=== PATIENT | male | born 1975 | race Caucasian/White ===

== ENCOUNTER 2023-06-02 20:43 | Emergency (ER) | payer OTHER, SELFPAY ==
[2023-06-02 20:49] VITALS: BP 129/82; PULSE 68; RESP 12; TEMP 36.5; O2SAT 97; BMI 33.9
--- NOTE | 2023-06-02 21:00 | ED_ITS ---
HPI - General Adult General Chief complaint: Skin/Abscess/Foreign Body Stated complaint: LUMP Time Seen by Provider: 06/02/23 20:45 Source: patient Mode of arrival: walk-in History of Present Illness HPI narrative: patient is a 47-year-old male who presents to the emergency department for the evaluation of a perirectal abscess that has been present for several days. 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 He has had a perirectal abscess that needed to be drained in the past. He has had no drainage from this area. No fevers or vomiting, no difficulty with bowel movements. Related Data Previous Rx's Medication Instructions Recorded ciprofloxacin HCl 500 mg tablet 500 mg PO BID #20 tabs 06/02/23 (Cipro) metronidazole 500 mg tablet 500 mg PO Q12H 10 days #20 tabs 06/02/23 ondansetron 4 mg disintegrating 4 mg PO Q6H PRN nausea and 06/02/23 tablet vomiting #12 tabs oxycodone-acetaminophen 5 mg-325 1 tab PO Q6H PRN pain #10 tabs 06/02/23 mg tablet (Percocet) Allergies Allergy/AdvReac Type Severity Reaction Status Date / Time No Known Drug Allergies Allergy Verified 06/02/23 20:48 Review of Systems ROS Constitutional Denies: fever or chills Ears, nose, mouth, and throat Denies: throat pain Cardiovascular Denies: chest pain Respiratory Denies: shortness of breath Gastrointestinal Denies: abdominal pain, nausea or vomiting Integumentary/Breast Denies: rash Endocrine Denies: excessive urination PFSH PFSH Social History Smoking status: Current every day smoker Exam Narrative Exam Narrative: Gen.: Awake, alert, in no distress Head: Normocephalic, atraumatic ENT: Moist mucous membranes Respiratory: No respiratory distress Gastrointestinal: Abdomen is soft, nondistended and nontender to palpation rectal: 1 x 2.5 cm minimally fluctuant abscess noted to the right medial bu ttock. Abscess is approximately 2 cm away from the opening of the rectum. There is no active drainage, no bleeding or drainage from the rectum.rectal exam performed with Niya Piña RN at the bedside throughout the duration of the exam Extremities: Moves extremities equally Psych: Normal mood and affect Neuro: No focal neuro deficit Skin: Warm, dry, intact Constitutional Vital Signs, click to edit/add: Last Vital Signs Temp 97.7 F 06/02/23 20:49 Pulse 68 06/02/23 20:49 Resp 12 06/02/23 20:49 BP 129/82 06/02/23 20:49 Pulse Ox 97 06/02/23 20:49 O2 Del Method Room Air 06/02/23 20:49 Course Vital Signs Vital signs: Vital Signs Temperature 97.7 F 06/02/23 20:49 Pulse Rate 68 06/02/23 20:49 Respiratory Rate 12 06/02/23 20:49 Blood Pressure 129/82 06/02/23 20:49 Pulse Oximetry 97 06/02/23 20:49 Oxygen Delivery Method Room Air 06/02/23 20:49 Temperature 97.7 F 06/02/23 20:49 Pulse Rate 68 06/02/23 20:49 Respiratory Rate 12 06/02/23 20:49 Blood Pressure 129/82 06/02/23 20:49 Pulse Oximetry 97 06/02/23 20:49 Oxygen Delivery Method Room Air 06/02/23 20:49 Medical Decision Making MDM Narrative Medical decision making narrative: Incision and drainage: A single layer of iodine was used to prep the area. Drapes were placed to ensure isolation of the abscess and surrounding skin tissue. A regional field block was performed with 1% lidocaine. Incision was made with an 11 blade, moderate amount purulent material was expressed. Cultures were obtained and sent to the lab. Telfa applied for bandage. Patient tolerated the procedure well, no significant blood loss Incision and drainage was performed, moderate purulent material was expressed and wound culture was obtained. Patient treated with Vivian Arora for perirectal abscess with a short course of analgesics and nausea medication. It was recommended is this is a recurrent perirectal abscess that he follow-up with a gastrointestinal specialist or general surgeon and referrals were given. He is encouraged to keep the area clean, dry and covered. Warm compresses to encourage drainage. Return to the Emergency Room if symptoms change or worsen Medical Records Medical records reviewed: Yes I reviewed the patient's medical records Discharge Plan Discharge Chief Complaint: Skin/Abscess/Foreign Body Clinical Impression: Perirectal abscess Patient Disposition: Home, Self-Care Time of Disposition Decision: 21:31 Condition: Good Prescriptions / Home Meds: New metronidazole 500 mg tablet 500 mg PO Q12H 10 Days Qty: 20 0RF ciprofloxacin HCl [Cipro] 500 mg tablet 500 mg PO BID Qty: 20 0RF ondansetron 4 mg tablet,disintegrating 4 mg PO Q6H PRN (Reason: nausea and vomiting) Qty: 12 0RF oxycodone-acetaminophen [Percocet] 5-325 mg tablet 1 tab PO Q6H PRN (Reason: pain) Qty: 10 0RF Rx Instructions: DX: L02.91 Instructions: Abscess (ED) Stand Alone Forms: Portal Instructions Referrals: Jodee CRESPO [Physician] - 1 week Fadi Yoder MD [Physician] - 1 week Physician,Non-StaffMD [Primary Care Provider] - 1 week Discharge Date/Time: 06/02/23 21:46
[2023-06-02] MEDS: METRONIDAZOLE 250 MG TABLET 500 MG PO (21:09)
[2023-06-02] MEDS: CIPROFLOXACIN HCL 500 MG TABLET PO (21:09)
[2023-06-02] MEDS: ONDANSETRON 4 MG RAPDIS TABLET SL (21:10)
[2023-06-02] MEDS: LIDOCAINE HCL 1% 100 MG/10 ML MDV INJ (21:10)
[2023-06-02] MEDS: OXYCODONE HCL/ACETAMINOPHEN 5MG/325MG 1 TAB PO (21:10)
--- NOTE | 2023-06-06 17:54 | PC.NURSE ---
06/06/23 1754 pt called checking on abscess culture results, reviewed with YISEL Wetzel along with atquique kessler. educated on appropriate therapy continue atbs as ordered finishing as ordered, and follow up as previously discussed, pt v/u and denies any further questions needs or concerns at this time.
== END 2023-06-02 21:46 | disposition home or self-care (01) ==
PROVIDERS: Emergency Provider Internal Medicine
DX: K61.1 Rectal abscess (principal); Z79.899 Other long term (current) drug therapy; F17.210 Nicotine dependence, cigarettes, uncomplicated
CPT/HCPCS: 46040; 87070; 87150; 87186; 99284

== ENCOUNTER 2024-05-19 23:55 | Emergency (ER) | payer OTHER, SELFPAY ==
[2024-05-20 00:02] VITALS: BP 137/80; PULSE 104; TEMP 37.7; O2SAT 97; BMI 32.5
--- OUTSIDE RECORDS SUMMARY | 2024-05-20 00:04 | XMS_ITS | CCD ---
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 Ivette Ash MD Primary Care Physician: Ford Bauman DO PCP Comment: Discharge Diagnosis: 1:Cholecystitis Condition at Discharge: Improved MAO ESCOBEDO Abby has been given the following list of follow-up instructions, prescriptions, and patient education materials: PATIENT FOLLOW-UP INFORMATION Diet: Discharge Activity: Discharge Restrictions: Wound Care Instructions: Remove Your Dressing In Days Call Your Doctor For: IF UNABLE TO CONTACT YOUR PHYSICIAN AND YOU FEEL IT IS AN EMERGENCY, GO TO THE NEAREST EMERGENCY ROOM OR CALL 911 Home Treatment: Devices/Equipment: None Special Services: Additional Instructions: Tylenol and Motrin for mild to moderate pain, oxycodone for severe pain. No lifting heavier than 15 pounds for 3 to 4 weeks. You may shower tomorrow, no swimming or submerging until incisions are healed. Primary Care Physician to provide the following pending test results: Biopsy/pathology Follow up: With: Address: When: Ford Link [address] [place] [address] Business (1) With: Address: When: trauma clinic [address] [facility] 3, second floor, [address] [place] [address] Within 1 to 2 weeks Comments: Call to schedule/confirm followup appointment In the event that this physician does not participate in your insurance network, please consult with your insurance company to find a nearby participating provider. Type Location Start [facility] 01/12/2024 7:40 AM 01/12/2024 8:00 AM Confirmed Comment: IFANNY NATHAN R, have received the attached patient education materials/instruction s and have verbalized understanding: Patient Signature Date Clinican/Nurse Signature Date HERE ARE THE MEDICATION CHANGES THAT OCCURRED DURING YOUR HOSPITAL STAY New Medications [id number], [address] [place] [id number], [phone] amoxicillin-clavulana te (Augmentin 875 mg oral tablet) 1 Tablets By Mouth every 12 hours for 3 Days. Refills: 0. Last Dose: ____Next Dose: ____ docusate (Colace 100 mg Cap) 1 Capsules By Mouth 2 times a day for 10 Days. Refills: 0. Last Dose: ____Next Dose: ____ oxycodone (oxyCODONE 5 mg Tab) 1 Tablets By Mouth every 6 hours as needed Pain 8-10 for 3 Days. Refills: 0. Last Dose: ____Next Dose: ____ senna (senna 8.6 mg Tab) 1 Tablets By Mouth once a day (at bedtime) for 10 Days. Refills: 0. Last Dose: ____Next Dose: ____ Other Medications acetaminophen (acetaminophen 325 mg Tab) 2 Tablets By Mouth every 6 hours. Last Dose: ____Next Dose: ____ Medications to Continue with No Changes Other Medications cyclobenzaprine (cyclobenzaprine 10 mg Tab) 1 Tablets By Mouth 3 times a day as needed for spasm. Refills: 1. Last Dose: ____Next Dose: ____ phentermine (Adipex-P 37.5 mg Tab) 1 Tablets By Mouth every day. before breakfast. Refills: 0. Last Dose: ____Next Dose: ____ Comment: MEDICATION LIST PROVIDED FOR YOU IS A LIST OF YOUR CURRENT MEDICATIONS. PLEASE CARRY THIS WITH YOU AT ALL TIMES. acetaminophen (acetaminophen 325 mg Tab) 2 Tablets By Mouth every 6 hours. amoxicillin-clavulana te (Augmentin 875 mg oral tablet) 1 Tablets By Mouth every 12 hours for 3 Days. Refills: 0. cyclobenzaprine (cyclobenzaprine 10 mg Tab) 1 Tablets By Mouth 3 times a day as needed for spasm. Refills: 1. docusate (Colace 100 mg Cap) 1 Capsules By Mouth 2 times a day for 10 Days. Refills: 0. oxycodone (oxyCODONE 5 mg Tab) 1 Tablets By Mouth every 6 hours as needed Pain 8-10 for 3 Days. Refills: 0. phentermine (Adipex-P 37.5 mg Tab) 1 Tablets By Mouth every day. before breakfast. Refills: 0. senna (senna 8.6 mg Tab) 1 Tablets By Mouth once a day (at bedtime) for 10 Days. Refills: 0. Pharmacy Information: Comment: PATIENT EDUCATION INFORMATION Instructions: Minimally Invasive Cholecystectomy, Care After What can I expect after the procedure? After the procedure, it is common to: ? Have pain at the areas of surgery. You will be given medicines for pain. ? Vomit or feel like you may vomit. ? Feel fullness in the belly (bloating) or have pain in the shoulder. This comes from the gas that was used during the surgery. Follow these instructions at home: Medicines ? Take [id number] and prescription medicines only as told by y (more content not included)... [facility] Interdisciplinary Note - Jaren e Manageron 01-08-2024 Interdisciplinary Note - Apartment Hotel Manager CRM spoke with patient and in room. Patient is alert and oriented and participates in discharge planning. Patient white board updated, and CRM contact information provided. Dr Ash in room and patient will dc home today. Patient denies needs at discharge. will transport. [facility] Comment on above: Result Comment: Elec tronically Signed By: Chris ALAS, Akua\.br\Date and Time Signed: 01/08/24 10:51 EDT Main OR Intraoperative Recor don 01-08-2024 Main OR Intraoperative Record IntraOp Document Type FT Summary Primary Physician: Ivette Ash MD Finalized Date/Time: 01/08/24 09:11:58 Pt. Name: FANNYMAO/Sex: 1975 Male Med Rec #: [id number] Physician: Ivette Ash MD Financial #: [id number] Pt. Type: O Room/Bed: N304/01 Admit/Disch: 01/06/24 08:02:41 - Institution: Case Times FT Entry 1 Patient Times In Room 01/07/24 12:19:00 Out Room 01/07/24 15:48:00 Procedure Times Start 01/07/24 12:47:00 Stop 01/07/24 15:32:00 Anesthesia Times Start 01/07/24 12:19:00 Stop 01/07/24 15:48:00 Last Modified By: Cristiane ALAS, Mercedes Cm P 01/07/24 16:47:11 General Comments: 01/08/24 Chart opened to review and send charges LRoth CSFA Case Attendance FT Entry 1 Entry 2 Entry 3 Case Attendee Nilsa SPICER, Ivette Frias DNP, DETACKER, [facility] PA-C, Gabbi Antonio C. N. Role Performed Surgeon - Primary DETACKER PA/SENIOR PROCESS ANALYST Time In 01/07/24 12:38:00 01/07/24 12:19:00 01/07/24 12:38:00 Time Out 01/07/24 15:35:00 01/07/24 15:48:00 01/07/24 15:48:00 Procedure CHOLECYSTECTOMY CHOLECYSTECTOMY CHOLECYSTECTOMY LAPAROSCOPIC W/ LAPAROSCOPIC W/ LAPAROSCOPIC W/ CHOLANGI(.) CHOLANGI(.) CHOLANGI(.) Comments dr martinez supervising Last Modified By: Cristiane RN, Mercedes Sauer RN, Mercedes Sauer RN, Mercedes mC P 01/07/24 Soila P 01/07/24 Soila P 01/07/24 16:47:51 16:47:12 16:47:12 Entry 4 Entry 5 Entry 6 Case Attendee Mohinder ALAS, Donna Iniguez, [facility] Role Performed Contract Post Office Clerk - Primary Scrub - Primary Contract Post Office Clerk - Relief Time In 01/07/24 12:24:00 01/07/24 12:19:00 01/07/24 12:19:00 Time Out 01/07/24 14:47:00 01/07/24 14:47:00 01/07/24 12:39:00 Procedure CHOLECYSTECTOMY CHOLECYSTECTOMY CHOLECYSTECTOMY LAPAROSCOPIC W/ LAPAROSCOPIC W/ LAPAROSCOPIC W/ CHOLANGI(.) CHOLANGI(.) CHOLANGI(.) Comments Last Modified By: Cristiane ALAS, Mercedes Sauer RN, Mercedes Sauer RN, Mercedes Cm P 01/07/24 Soila P 01/07/24 Soila P 01/07/24 16:47:12 16:47:12 16:47:12 Entry 7 Entry 8 Entry 9 Case Attendee Otis Beaulieu CST, Terry T Ferrer RN, Mercedes Menon Role Performed Scrub - Relief Contract Post Office Clerk - Relief Contract Post Office Clerk - Relief Time In 01/07/24 14:46:00 01/07/24 14:47:00 01/07/24 15:21:00 Time Out 01/07/24 15:48:00 01/07/24 15:24:00 01/07/24 15:48:00 Procedure CHOLECYSTECTOMY CHOLECYSTECTOMY CHOLECYSTECTOMY LAPAROSCOPIC W/ LAPAROSCOPIC W/ LAPAROSCOPIC W/ CHOLANGI(.) CHOLANGI(.) CHOLANGI(.) Comments Last Modified By: Cristiane RN, Mercedes Sauer RN, Mercedes Sauer RN, Mercedes Menon 01/07/24 Soila P 01/07/24 Soila P 01/07/24 16:47:12 16:47:12 16:47:12 Entry 10 Case Attendee Henson Maik Role Performed PANTS MAKER Time In 01/07/24 12:19:00 Time Out 01/07/24 15:45:00 Procedure CHOLECYSTECTOMY LAPAROSCOPIC W/ CHOLANGI(.) Comments Last Modified By: Cristiane ALAS, Mercedes Menon 01/07/24 16:47:51 General Comments: Nilam Doty, EVETTE student, also in room to observe. evette alfredhvac journeyman Protocols FT Pre-Care Text: Implements protective measures prior to operative or invasive procedure, confirms identity before the operative or invasive procedure, verifies operative procedure, surgical site, and laterality Entry 1 Procedure(s) CHOLECYSTECTOMY Patient Identity Birthday, ID Band Check LAPAROSCOPIC W/ Verified (select at CHOLANGI(.) least 2): Consents / H and P Anesthesia Consent, Operative Site N/A Verified HandP, Surgery/Procedure Marking Verified Consent Surgical Site Yes Laterality Verified n/a Verified Procedure Verified Yes Correct Patient Yes Position Verified Availability Equipment, Medication, Prep Dry Yes Verified (If X-ray Applicable) PreOp Antibiotic Yes Time Out Nilsa SPICER, Ivette Rocha, Altagracia VIGIL, MARISOL, Queen Uri, Rita BILLY, Gabbi Antonio, Mohinder ALAS, Geetha Mccauley Madison A Time Out Complete 01/07/24 12:45:00 Outcomes Met? Yes Last Modified By: Mohinder ALAS, Donna Zazueta 01/07/24 13:48:29 Post-Care Text: The patient is free from signs and symptoms of injury caused by extraneous objects Allergy Information FT Pre-Care Text: Verifies allergies Entry 1 Allergies Reviewed? Yes Allergies Reviewed Self/Patient With Outcomes Met? Yes Last Modified By: Donna Vines RN 01/07/24 12:39:35 Post-Care Text: The patient received appropriate medication(s) safely administered during the perioperative period Surgical Procedures FT Entry 1 Procedure Description Procedure CHOLECYSTECTOMY Modifiers . LAPAROSCOPIC W/ CHOLANGIOGRAM Surgeon Description LAPAROSCOPIC CHOLECYSTECTOMY Primary Procedure Yes Primary Surgeon Nilsa SPICER, Ivette Rocha Start 01/07/24 12:47:00 Stop 01/07/24 15:32:00 Anesthesia Type General Surgical Service General Wound Class 2 - Clean-Contaminated Last Modified By: Mercedes Sauer RN 01/07/24 16:45:30 General Case Data FT Pre-Care Text: Classifies surgical wound, implements asepti (more content not included)... Normal [facility] Operative Reporton Operative Report [facility] Acute Care Surgery Operative Report Date of Service: 01/07/2024 Preop Diagnosis: acute cholecystitis Postop Diagnosis: hemorrhagic gangrenous calculous cholecystitis Procedure: laparoscopic cholecystectomy Surgeon: Ivette Ash MD Informatics Application Analyst: Gabbi Salinas PA-C Anesthesia: General endotracheal EBL: 400 mL Wound Class: contaminated Drains: 15 marshallese drain Complications: None Specimens: Gallbladder, bile aspirate Intraoperative Findings: Severely inflamed gangrenous cholecystitis, diffuse bleeding and hemorrhage of the gallbladder itself. Multiple large impacted stones. Critical view of safety obtained. Excellent hemostasis at the conclusion of the case Indications: MAO ESCOBEDO is a 48 Years Male admitted on 01/05 with 4 days of abdominal pain and nausea. CT scan consistent with large impacted stone at the gallbladder neck as well as inflammation and thickening consistent with acute cholecystitis. The risks, benefits, and alternatives to laparoscopic cholecystectomy were explained to the patient who provided informed consent for the procedure. Operative Note: The patient was brought to the operating room and placed supine on the operating room table. SCDs were placed on both legs. Subcutaneous heparin and zosyn were given prior to the procedure. General endotracheal anesthesia was induced. The patient was then prepped and draped in the usual sterile fashion. A time out was performed by the entire operating room team to confirm the correct patient, the correct site, and the correct procedure. A transverse supraumbilical incision was made with an #11 blade. The fascia was grasped with two Valentine clamps and elevated, and the fascia in the midline was incised with an #15 blade. Fascial stay sutures of 0 Vicryl were placed. A fingertip was used to divide the pre-peritoneal fat and enter the peritoneum and then the 12mm Lopez port was placed and secured using the stay sutures. Pneumoperitoneum was established and then the patient was placed in reverse Trendelenberg with left side down. A 5mm port was placed in the subxiphoid area, and two additional 5mm ports were placed in the right subcostal area. The gallbladder was visualized. Omentum was adherent across the entire fundus and gallbladder and required blunt dissection and electrocautery to divide. The gallbladder was too distended and thickened to grab, so an aspiration needle was used to decompress the gallbladder. Thick bile and sludge was aspirated and sent for culture. The fundus of the gallbladder was still too thickened and inflamed to grasp with usual nontraumatic graspers, so a toothed grasper had to be used to elevate over the liver. The entire gallbladder was covered with a thick inflammatory rind that bled with every manipulation. The infundibulum was difficult to grasp due to the impacted stone and the thickened inflamed tissue. With great difficulty, peritoneum and rind was dissected off of the lateral portions of the gallbladder to attempt to dissect behind the gallbladder wall. The suction on awake counselor and electrocautery was used liberally due to the hemorrhagic inflammation of the gallbladder. After a prolonged dissection to free the cystic triangle and the cystic plate, the cystic duct and artery were identified. The cystic artery also had a posterior branch running behind the gallbladder along the liver bed. I identified a single duct entering the gallbladder with >50% of the cystic plate cleared, I clipped and sharply divided the cystic duct. I clipped and divided the anterior branch of the cystic artery. The gallbladder was then laboriously dissected off of the liver bed. There was no clear plane between gallbladder and liver and took a long time to dissect free without entering the liver. Once the gallbladder was mostly dissected free, the posterior branch was clipped and divided when I was certain it entered the gallbladder only. The gallbladder attached to the liver bed as also clearly gangrenous and falling apart. Once the gallbladder was completely freed, it was placed in an endocatch bag. No stones were spilled. I then looked back at the liver bed to ensure adequate hemostasis and ensure the clips were in place. The whole area was irrigated and suctioned clear. No further bleeding noted from the liver bed now that the gallbladder was completely removed. Due the friable tissues and gangrenous gallbladder, I decided to leave a drain. A 15 marshallese round ALESSANDRO drain was threaded through the most lateral RUQ port, placed in the gallbladder fossa, and secured to the skin with 3-0 nylon suture. Once I was satisfied, the 5mm ports were removed under direct vision. Pneumoperitoneum was released. The stone in the gallbladder was too large to remove through the existing umbilical opening, so the fascial opening had to be extended. Once it was freed, the umbilical port site was closed with additional 0 vicryl figure of eight sutures and the fascial stay sutures tied down. 2% lidocaine with (more content not included)... Normal [facility] Comment on above: Result Comment: Elec tronically Signed By: Nilsa SPICER, Ivette Rocha\.br\Date and Time Signed: 01/08/24 10:25 EDT Prescriptions/Work Noteson 0 01-08-2024 Prescriptions/Work Notes [id number] Normal [facility] eGFRon 01-08-2024 eGFR 106 mL/min/1.73 m2 Normal >=59 [facility] Comment on above: Order Comment: Order added by Discern Expert. Performed By: #### 1 [id number] ####[facility] [id number] [place] [address] BMPon 01-07-2024 Anion gap [Moles/Vol] 10 mmol/L Normal 6-16 [facility] Comment on above: Performed By: #### 2 [id number] #### [facility] [address] [place] [address] Calcium [Mass/Vol] 8.7 mg/dL Low 8.9-11.1 [facility] Comment on above: Performed By: #### 2 [id number] #### [facility] [address] [place] [address] Chloride [Moles/Vol] 104 mmol/L Normal 101-111 [facility] Comment on above: Performed By: #### 2 [id number] #### [facility] [address] [place] [address] CO2 [Moles/Vol] 27 mmol/L Normal 21-31 [facility] Comment on above: Performed By: #### 2 [id number] #### [facility] [address] [place] [address] Creatinine [Mass/Vol] 0.9 mg/dL Normal 0.5-1.3 [facility] Comment on above: Performed By: #### 2 [id number] #### [facility] [address] [place] [address] Glucose [Mass/Vol] 105 mg/dL Normal 55-199 [facility] Comment on above: Performed By: #### 2 [id number] #### [facility] [address] [place] [address] Potassium [Moles/Vol] 4.2 mmol/L Normal 3.5-5.3 [facility] Comment on above: Performed By: #### 2 [id number] #### [facility] [address] [place] [address] Sodium [Moles/Vol] 137 mmol/L Normal 135-145 [facility] Comment on above: Performed By: #### 2 [id number] #### [facility] [address] [place] [address] Urea nitrogen [Mass/Vol] 7 mg/dL Normal 5-21 [facility] Comment on above: Performed By: #### 2 [id number] #### [facility] [address] [place] [address] Urea nitrogen/Creatinine [Mass ratio] 8 No Units Low 10-20 [facility] Comment on above: Performed By: #### 2 [id number] #### [facility] [address] [place] [address] CBC w/ Auto Diffon 4 Basophils/100 WBC (Bld) 0.2 % Normal 0.0-2.0 [facility] Comment on above: Performed By: #### 2 [id number] #### [facility] [address] [place] [address] Basophils/Leukocytes Auto (Bld) [Pure # fraction] 0.0 E9/L Normal 0.0-0.2 [facility] Comment on above: Performed By: #### 2 [id number] #### [facility] [address] [place] [address] Eosinophils (Bld) [#/Vol] 0.3 E9/L Normal 0.0-0.5 [facility] Comment on above: Performed By: #### 2 [id number] #### [facility] [address] [place] [address] Eosinophils/100 WBC (Bld) 2.3 % Normal 0.0-8.0 [facility] Comment on above: Performed By: #### 2 [id number] #### [facility] [address] [place] [address] Erythrocyte distribution width (RBC) [Ratio] 13.6 % Normal 10.9-14.2 [facility] Comment on above: Performed By: #### 2 [id number] #### [facility] [address] [place] [address] Hematocrit (Bld) [Volume fraction] 45.5 % Normal 37.7-49.0 [facility] Comment on above: Performed By: #### 2 [id number] #### [facility] [address] [place] [address] Hemoglobin (Bld) [Mass/Vol] 15.3 g/dL Normal 13.5-17.5 [facility] Comment on above: Performed By: #### 2 [id number] #### [facility] [address] [place] [address] Lymphocytes (Bld) [#/Vol] 1.6 E9/L Normal 1.0-4.0 [facility] Comment on above: Performed By: #### 2 [id number] #### [facility] [address] [place] [address] Lymphocytes/100 WBC (Bld) 11.4 % Low 14.0-50.0 [facility] Comment on above: Performed By: #### 2 [id number] #### [facility] [address] [place] [address] MCH (RBC) [Entitic mass] 29.6 pg Normal 27.0-34.0 [facility] Comment on above: Performed By: #### 2 [id number] #### [facility] [address] [place] [address] MCHC (RBC) [Mass/Vol] 33.7 g/dL Normal 31.4-36.0 [facility] Comment on above: Performed By: #### 2 [id number] #### [facility] [address] [place] [address] MCV (RBC) [Entitic vol] 87.8 fL Normal 80.0-100.0 [facility] Comment on above: Performed By: #### 2 [id number] #### [facility] [address] [place] [address] Monocytes (Bld) [#/Vol] 0.7 E9/L Normal 0.2-1.0 [facility] Comment on above: Performed By: #### 2 [id number] #### [facility] [address] [place] [address] Neutrophils (Bld) [#/Vol] 11.4 E9/L High 2.0-7.5 [facility] Comment on above: Performed By: #### 2 [id number] #### [facility] [address] [place] [address] Neutrophils/100 WBC (Bld) 80.9 % High 36.0-75.0 [facility] Comment on above: Performed By: #### 2 [id number] #### [facility] [address] [place] [address] Platelet mean volume (Bld) [Entitic vol] 9.0 fL Normal 6.4-10.8 [facility] Comment on above: Performed By: #### 2 [id number] #### [facility] [address] [place] [address] Platelets (Bld) [#/Vol] 215.0 E9/L Normal 150.0-500.0 [facility] Comment on above: Performed By: #### 2 [id number] #### [facility] [address] [place] [address] RBC (Bld) [#/Vol] 5.2 E12/L Normal 4.3-5.9 [facility] Comment on above: Performed By: #### 2 [id number] #### [facility] [address] [place] [address] WBC corrected for nucl RBC Auto (Bld) [#/Vol] 14.1 E9/L High 4.0-11.0 [facility] Comment on above: Performed By: #### 2 [id number] #### [facility] [address] [place] [address] CHEMISTRYOrdered By: SYSTEM SYSTEM on 01-07-2024 Anion gap [Moles/Vol] 10 mmol/L Normal 6 - 16 mEq/L R emisol Chem Calcium [Mass/Vol] 8.7 mg/dL Low 8.9 - 11. 1 mg/dL Remisol Chem Chloride [Moles/Vol] 104 mmol/L Normal 101 - 1 11 mmol/L Remisol Chem CO2 [Moles/Vol] 27 mmol/L Normal 21 - 31 mmol/L Remisol Chem Creatinine [Mass/Vol] 0.9 mg/dL Normal 0.5 - 1.3 mg/dL Remisol Chem eGFR 106 mL/min/1.73 m2 Normal >=59mL/mi n/1 .73 m2 Remisol Chem Glucose [Mass/Vol] 105 mg/dL Normal 55 - 199 mg/dL Remisol Chem Potassium [Moles/Vol] 4.2 mmol/L Normal 3.5 - 5.3 mmol/L Remisol Chem Sodium [Moles/Vol] 137 mmol/L Normal 135 - 145 mmol/L Remisol Chem Urea nitrogen [Mass/Vol] 7 mg/dL Normal 5 - 21 mg/dL Remisol Chem Urea nitrogen/Creatinine [Mass ratio] 8 mg/mg Low 10 - 20 Remisol Chem HEMATOLOGYOrdered By: SYSTEM SYSTEM on 01-07-2024 Basophils/100 WBC (Bld) 0.2 % Normal 0.0 - 2.0 % Remisol Heme Basophils/Leukocytes Auto (Bld) [Pure # fraction] 0.0 E9/L Normal 0.0 - 0.2 E9/L Remisol Heme Eosinophils (Bld) [#/Vol] 0.3 E9/L Normal 0.0 - 0.5 E9/L Remisol Heme Eosinophils/100 WBC (Bld) 2.3 % Normal 0.0 - 8.0 % Remisol Heme Erythrocyte distribution width (RBC) [Ratio] 13.6 % Normal 10.9 - 14.2 % Remisol Heme Hematocrit (Bld) [Volume fraction] 45.5 % Normal 37.7 - 49.0 % Remisol Heme Hemoglobin (Bld) [Mass/Vol] 15.3 g/dL Normal 13.5 - 17.5 gm/dL Remisol Heme Lymphocytes (Bld) [#/Vol] 1.6 E9/L Normal 1.0 - 4.0 E9/L Remisol Heme Lymphocytes/100 WBC (Bld) 11.4 % Low 14.0 - 50.0 % Remisol Heme MCH (RBC) [Entitic mass] 29.6 pg Normal 27.0 - 34.0 pg Remisol Heme MCHC (RBC) [Mass/Vol] 33.7 g/dL Normal 31.4 - 36.0 gm/dL Remisol Heme MCV (RBC) [Entitic vol] 87.8 fL Normal 80.0 - 100.0 fL Remisol Heme Monocytes (Bld) [#/Vol] 0.7 E9/L Normal 0.2 - 1.0 E9/L Remisol Heme Monocytes/100 WBC (Bld) 5.2 % Normal 4.0 - 14.0 % Remisol Heme Neutrophils (Bld) [#/Vol] 11.4 E9/L High 2.0 - 7.5 E9/L Remisol Heme Neutrophils/100 WBC (Bld) 80.9 % High 36.0 - 75.0 % Remisol Heme Platelet mean volume (Bld) [Entitic vol] 9.0 fL Normal 6.4 - 10.8 fL Remisol Heme Platelets (Bld) [#/Vol] 215.0 E9/L Normal 150.0 - 500.0 E9/L Remisol Heme RBC (Bld) [#/Vol] 5.2 E12/L Normal 4.3 - 5.9 E12/L Remisol Heme WBC corrected for nucl RBC Auto (Bld) [#/Vol] 14.1 E9/L High 4.0 - 11.0 E9/L Remisol Heme Interdisciplinary Note - Jaren e Manageron 01-07-2024 Interdisciplinary Note - Apartment Hotel Manager CRM spoke with patient and fiance in room. Patient is alert and oriented and participates in discharge planning. Patient white board updated, and CRM contact information provided. Discussed Dr Ash will see patient today and plan is for lap lew today. patient states he hopes to go home later today. Patient verified PCP, insurance and denies any DME. Patient is from home independently with fiance, she will transport at pa. Patient denies any needs at discharge. Per patient Karolina Ivey the co pay with her insurance is too much so she is agreeable to going to [facility] when medically ready. Normal [facility] Comment on above: Result Comment: Elec tronically Signed By: Chris ALAS, Akua\.br\Date and Time Signed: 01/07/24 14:41 EDT Main OR Intraoperative Recor don 01-07-2024 Main OR Intraoperative Record IntraOp Document Type FT Summary Primary Physician: Ivette Ash MD Finalized Date/Time: 01/07/24 16:48:07 Pt. Name: MAO ESCOBEDO/Sex: 1975 Male Med Rec #: [id number] Physician: Ivette Ash MD Financial #: [id number] Pt. Type: O Room/Bed: Admit/Disch: 01/06/24 08:02:41 - Institution: Case Times FT Entry 1 Patient Times In Room 01/07/24 12:19:00 Out Room 01/07/24 15:48:00 Procedure Times Start 01/07/24 12:47:00 Stop 01/07/24 15:32:00 Anesthesia Times Start 01/07/24 12:19:00 Stop 01/07/24 15:48:00 Last Modified By: Cristiane ALAS, Mercedes Cm P 01/07/24 16:47:11 Case Attendance FT Entry 1 Entry 2 Entry 3 Case Attendee Nilsa SPICER, Ivette Frias DNP, DETACKER, [facility] PA-C, Gabbi Antonio C. N. Role Performed Surgeon - Primary DETACKER PA/SENIOR PROCESS ANALYST Time In 01/07/24 12:38:00 01/07/24 12:19:00 01/07/24 12:38:00 Time Out 01/07/24 15:35:00 01/07/24 15:48:00 01/07/24 15:48:00 Procedure CHOLECYSTECTOMY CHOLECYSTECTOMY CHOLECYSTECTOMY LAPAROSCOPIC W/ LAPAROSCOPIC W/ LAPAROSCOPIC W/ CHOLANGI(.) CHOLANGI(.) CHOLANGI(.) Comments dr martinez supervising Last Modified By: Cristiane ALAS, Mercedes Sauer RN, Mercedes Sauer RN, Mercedes Cm P 01/07/24 Soila P 01/07/24 Soila P 01/07/24 16:47:51 16:47:12 16:47:12 Entry 4 Entry 5 Entry 6 Case Attendee Mohinder ALAS, Donna Iniguez, [facility] Role Performed Contract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 No mass or splenomegaly. Adrenals: No mass. Kidneys: No calculus or hydronephrosis. Small benign right renal cysts. Delayed phase imaging with normal excreted contrast in the renal collecting system, ureters, and bladder. Report GI tract: No dilation or wall thickening. Normal appendix. Diverticulosis, without evidence for acute diverticulitis. Lymph nodes: No abdominal or pelvic lymphadenopathy. Mesentery/Peritoneum/ Retroperitoneum: No ascites or mass. Vasculature: The celiac axis and SMA are patent. The portal vein and branches, splenic vein, SMV, and hepatic veins are patent. No abdominal aortic or iliac artery aneurysm. Pelvis: Small volume dependent pelvic free fluid, nonspecific, but probably reactive from the above cholecystitis. Bladder decompressed. Bones: No acute osseous findings. Soft tissues: Unremarkable. Lower thorax: Bibasilar atelectasis/scarring. Ordering Provider: Andrew Gastelum FINAL REPORT Dictated: 01/06/2024 9:28 am Jose Wise MD Signed (Electronic Signature): 01/06/2024 9:28 am Signed by: Jose Wise MD Transcribed by: TANIA Technologist: DIANA Technical Comments GFR (mL/min/1/73m2) 93 Contrast: Isovue 300 Contrast amount in ml's: 100 Normal [facility] Consent for Procedure/Surger yon 01-06-2024 Consent for Procedure/Surgery [id number]# 1.00TIFF Normal [facility] Consent for Treatmenton 12-09 Consent for Treatment [id number] .00TIFF Normal [facility] ED Clinical Summaryon 2023 ED Clinical Summary [place] [id number] ED Clinical Summary Person Information Name: MAO ESCOBEDO [facility] Age: 48 Years : 1975 Sex: Male Language: Azerbaijani PCP: Ford Bauman DO Marital Status: Single Phone: [phone] Visit Id: Visit Reason: Body aches; Nausea; Abdominal pain; BODY ACHES, CHILLS, ABD PAIN, BACK PAIN Speciality: Acuity: 3 Enc Type: Observation Med Service: Medical Arrival: 01/06/2024 08:02:41 Discharge: LOS: 000 06:11 Checkin: 01/06/2024 08:02:41 Checkout: 01/06/2024 14:13:57 Dispo Type: Admitted as IP to this [facility] EVENTS: Event Name Event Status Request Date/Time Start Date/Time Complete Date/Time Arrive Complete 01/06/2024 08:02:41 01/06/2024 08:02:41 01/06/2024 08:02:41 Document Home Meds Complete 01/06/2024 08:02:41 01/06/2024 13:49:51 01/06/2024 13:49:51 Triage Complete 01/06/2024 08:02:41 01/06/2024 08:12:27 01/06/2024 08:12:27 Registration Complete 01/06/2024 08:07:16 01/06/2024 08:07:16 01/06/2024 08:07:16 Reg Complete Request 01/06/2024 08:07:16 Reg Bed Request Complete 01/06/2024 08:07:16 01/06/2024 08:07:16 01/06/2024 08:07:16 Bed Assign Complete 01/06/2024 08:07:33 01/06/2024 08:07:33 01/06/2024 08:07:33 Dr Exam Complete 01/06/2024 08:07:33 01/06/2024 08:10:53 01/06/2024 08:10:53 RN Exam Complete 01/06/2024 08:07:33 01/06/2024 11:46:07 01/06/2024 11:46:07 Registration Complete 01/06/2024 08:10:53 01/06/2024 08:18:10 01/06/2024 12:16:01 EKG Complete 01/06/2024 08:33:45 01/06/2024 08:39:47 X-Ray Complete 01/06/2024 08:33:45 01/06/2024 09:09:17 01/06/2024 09:28:26 Meds Admin Complete 01/06/2024 08:33:45 01/06/2024 08:52:32 Pending Labs Request 01/06/2024 08:33:45 Lab Complete 01/06/2024 08:33:45 01/06/2024 09:10:28 CT Complete 01/06/2024 08:33:45 01/06/2024 08:55:19 01/06/2024 09:13:27 Pending Labs Complete 01/06/2024 08:47:04 01/06/2024 08:47:04 01/06/2024 09:07:49 Lab Complete 01/06/2024 08:47:04 01/06/2024 08:47:04 01/06/2024 09:07:49 Pending Labs Complete 01/06/2024 09:05:12 01/06/2024 09:05:12 01/06/2024 09:05:13 Wet Read Request 01/06/2024 09:28:26 Dr Exam Complete 01/06/2024 09:31:14 01/06/2024 09:31:14 01/06/2024 09:31:14 Consult Request 01/06/2024 09:36:00 Meds Admin Complete 01/06/2024 09:57:46 01/06/2024 10:30:50 Meds Admin Complete 01/06/2024 11:13:05 01/06/2024 11:32:38 Bed Request Request 01/06/2024 12:13:09 Reg Bed Request Complete 01/06/2024 12:13:09 01/06/2024 12:16:01 01/06/2024 12:16:01 Admit Request 01/06/2024 12:13:09 Patient Care Request 01/06/2024 12:16:02 Patient Care Request 01/06/2024 12:16:02 Patient Care Request 01/06/2024 12:16:03 Patient Care Request 01/06/2024 12:16:03 Patient Care Request 01/06/2024 13:13:41 NPO Request 01/06/2024 13:13:41 Meds Admin Request 01/06/2024 13:13:41 Pending Labs Request 01/06/2024 13:13:41 Lab Request 01/06/2024 13:13:41 RT Tx/ABG Request 01/06/2024 13:13:41 Blood Collect Request 01/06/2024 13:13:41 Meds Admin Request 01/06/2024 13:14:30 ADDRESS: [address] [place] [phone] [facility] DOC NOTES: MEDICAL INFORMATION: Prescriptions Given: Medications to Continue with No Changes Other Medications cyclobenzaprine (cyclobenzaprine 10 mg Tab) 1 Tablets By Mouth 3 times a day as needed for spasm. Refills: 1. phentermine (Adipex-P 37.5 mg Tab) 1 Tablets By Mouth every day. before breakfast. Refills: 0. PATIENT EDUCATION INFORMATION: Instructions: Follow up: DIAGNOSIS: Cholecystitis Normal [facility] ED Note-Physicianon 01-06-20 ED Note-Physician Basic Information Time Seen: Andrew Gastelum PA-C 01/06/2024 08:10 Chief Complaint pt reports mid abd pain since thursday, nausea today. states the pain radiates o his back bilaterally. denies urinary symptoms. History of Present Illness A 48-year-old male reports to the emergency department with a chief complaint of abdominal pain and nausea has been going on since Thursday. Reports pain is in the middle of his abdomen, now radiates to his back on both sides. Denies any urinary symptoms. He reports he is try to tough it out, but unable to. Reports he does take Adipex at home. He denies any surgeries on his abdomen before. Reports nausea, without any vomiting. Denies any chest pain or shortness of breath. Denies any known allergies to medications. No surgeries on his abdomen before. Review of Systems A 10 point review of systems is negative except as noted above. Medical and Surgical History: Reviewed and noted Social history: Lives at home Family History: Reviewed. Tobacco: user Physical Exam Vitals & Measurements T: 36.7 ?C(Oral) HR: 89(Monitored) RR: 16 BP: 114/68 SpO2: 97% HT: 182 cm WT: 109 kg BMI: 32.91 General: The patient appears well and in no apparent distress. Patient is resting comfortably on bed. Afebrile Skin: Warm, dry, no pallor noted. Head: Normocephalic, atraumatic Neck: No JVD Eye: PERRLA, EOMI ENT: Moist mucus membranes Cardiovascular: Regular rate normal peripheral perfusion Respiratory: No respiratory distress no accessory muscle use no obvious audible wheezing Chest Wall: no deformity Musculoskeletal: normal ROM, no deformity, no swelling GI: No obvious distention soft, with mild tenderness of right upper quadrant and epigastric area. Positive Rene sign. No rebound tenderness or guarding noted. Neurological: A&O moves all extremities equal strength and symmetry Psychiatric: Cooperative and appropriate Medical Decision Making MEDICAL DECISION MAKING Number and Complexity of Problems Differential Diagnosis: [] [facility] Data External documents reviewed: [] My EKG interpretation:review ed My CT interpretation: reviewed My X-ray interpretation: reviewed My Ultrasound interpretation: [] Decision rules/scores evaluated: [] Discussed with: [] Treatment and Disposition ED Course: 48-year-old male reports to the emergency department with chief complaint of mid abdominal pain, with nausea. Reports has been going on for the last 4 to 5 days. No history of abdominal surgery before. On exam of the patient, does have epigastric and right upper quadrant tenderness. Positive Rene sign. Due to his concerns we did do lab work. Lab reviewed noted. Elevated white count. Negative troponin. We did CT of his abdomen as well that did show acute calculus cholecystitis. Due to this, I did reach out to trauma surgery team, and I did discuss the case with Dr. Ash. She did come and take a look at the patient. Patient was started on Zosyn. She was agreeable with admission, the patient will have cholecystectomy likely tomorrow. Discussed with the patient was understanding. Patient admitted to their services. Shared decision making: [] Code status: [] Assessment/Plan Cholecystitis (K81.9: Cholecystitis, unspecified) Orders: HYDROmorphone, 0.5 mg = 0.5 mL, Injection, IV Push, Once, Stop date 01/06/24 11:12:00 EDT, STAT, Start date 01/06/24 11:12:00 EDT, 01/06/24 11:12:00 EDT morphine, 4 mg = 1 mL, Injection, IV Push, Once, Stop date 01/06/24 8:33:00 EDT, STAT, Start date 01/06/24 8:33:00 EDT, 01/06/24 8:33:00 EDT ondansetron, 4 mg = 2 mL, Injection, IV Push, Once, Stop date 01/06/24 8:33:00 EDT, STAT, Start date 01/06/24 8:33:00 EDT, 01/06/24 8:33:00 EDT piperacillin-tazobact am + Sodium Chloride 0.9% intravenous solution 50 mL, 3.375 gm = 1 EA, Injection, IV Piggyback, Once, Stop date 01/06/24 9:57:00 EDT, STAT, Start date 01/06/24 9:57:00 EDT, 100 mL/hr, Infuse over 30 minute(s) Sodium Chloride 0.9% intravenous solution, 1,000 mL, Soln-IV, IV, Once, Stop date 01/06/24 8:33:00 EDT, STAT, Start date 01/06/24 8:33:00 EDT, Infuse over 61, minute(s) Basic Metabolic Panel CBC w/ Auto Diff Consult to General Surgery CT Abdomen/Pelvis w/ Contrast ECG 12 Lead Adult eGFR Extra SST Tube Hepatic Function Panel Lipase Level Place in Status PT & PTT Troponin 0 Hr. UA with Cult Rflx XR Chest 2 Views Medications Administered Given Dilaudid 1 mg/mL injectable solution, 0.5 mg, IV Push morphine 4 mg/mL Inj, 4 mg, IV Push NS 1000 ml Bolus, 1000 mL, IV ondansetron 4 mg/2 mL Inj, 4 mg, IV Push Sodium Chloride 0.9% IV Patsy 50 mL Minibag Plus [F] 50 mL + pipera3 g-0.375 gInjection [F] 3.375 gm, IV Piggyback Disposition Plan Patient Discharge Condition Stable Discharge Disposition to be admitted to surgery Discharge Prescription List Prescriptions No active prescription medications Follow-up No qualifying data available Attestation Patien (more content not included)... Normal [facility] Comment on above: Result Comment: Elec tronically Signed By: Andrew Gastelum PA-C\.br\Date and Time Signed: 01/06/24 14:14 EDT\.br\Electronically Co-Signed By: Johnny Moctezuma MD\.br\Date and Time Co-Signed: 01/06/24 18:10 EDT ED Patient Education Noteon 01-06-2024 ED Patient Education Note Normal [facility] ED Patient Summaryon 024 ED Patient Summary [place] [id number] Patient Discharge Instructions Person Information Name: MAO ESCOBEDO Age: 48 Years Arrival Date: 01/06/2024 08:02:41 Discharge Diagnosis: Cholecystitis Primary Care Physician: Ford Bauman DO Provider Information Primary Provider: Johnny Moctezuma MD Advanced Beekeeper:None The exam and treatment you received in the Emergency Department were for an urgent problem and are not intended as complete care. It is important that you follow up with a doctor, nurse practitioner, or physician?s veterinary assistant technician for ongoing care. If your symptoms become worse or you do not improve as expected and you are unable to reach your usual health care provider, you should return to the Emergency Department. We are available 24 hours a day. MAO ESCOBEDO has been given the following list of patient education materials, prescriptions and follow-up instructions: Follow-up Instructions: In the event that this physician does not participate in your insurance network, please consult with your insurance company to find a nearby participating provider. Patient Education Materials: A MESSAGE TO ALL PATIENTS REGARDING OPIOIDS PRESCRIPTION OPIOIDS: WHAT YOU NEED TO KNOW Prescription opioids can be used to help relieve mvmvfbvh-ic-ggwlct pain and are often prescribed following a surgery or injury, or for certain health conditions. These medications can be an important part of the treatment but also come with serious risks. It is important to work with your healthcare provider to make sure you are getting the safest, most effective care. WHAT ARE THE RISKS AND SIDE EFFECTS OF OPIOID USE? Prescription opioids carry serious risks of addiction and overdose, especially with prolonged use. An opioid overdose, often marked by slowed breathing, can cause sudden . The use of prescription opioids can have a number of side effects as well, even when taken as directed: ? Tolerance?meaning you might need to take more of the medication for the same pain relief ? Physical dependence?meaning you have symptoms of withdrawal when a medication is stopped ? Increased sensitivity to pain ? Constipation ? Nausea, vomiting, and dry mouth ? Sleepiness and dizziness ? Confusion ? Depression ? Low levels of testosterone that can result in lower sex drive, energy, and strength ? Itching and sweating RISKS ARE GREATER WITH: ? History of drug misuse, substance use disorder, or overdose ? Mental health conditions (such as depression or anxiety) ? Sleep apnea ? Older age (65 years and older) ? Avoid alcohol while taking prescription opioids. Also, unless specifically advised by your health care provider, medications to avoid include: ? Benzodiazepines (such as Xanax or Valium) ? Muscle relaxants (such as Soma or Flexeril) ? Hypnotics (such as Ambien or Lunesta) ? Other prescription opioids KNOW YOUR OPTIONS Talk to your health care provider about ways to manage your pain that don?t involve prescription opioids. Some of these options may actually work better and have fewer risks and side effects. Options may include: ? Pain relievers such as acetaminophen, ibuprofen, and naproxen ? Some medication that are also used for depression or seizures ? Physical therapy and exercise ? Cognitive behavioral therapy, a psychological, goal-directed approach, in which patients learn how to modify physical, behavioral, and emotional triggers of pain and stress. IF YOU ARE PRESCRIBED OPIOIDS FOR PAIN: ? Never take opioids in greater amounts or more often than prescribed. ? Follow up with your primary health care provider. o Work together to create a plan on how to manage your pain. o Talk about ways to help manage your pain that don?t involve prescription opioids. o Talk about any and all concerns and side effects. ? Help prevent misuse and abuse o Never sell or share prescription opioids. o Never use another person?s prescription opioids. ? Store prescription opioids in a secure place and out of reach of others (this may include visitors, children, friends, and family). ? Safely dispose of unused prescription opioids: Find your community drug take-back program or your pharmacy mail-back program, or flush them down the toilet, following guidance from the Food and Drug Administration (www.fda.gov/Drugs/Re sourcesForYou). ? Visit www.cdc.gov/drugoverd ose to learn about the risks of opioids abuse and overdose. ? If you believe you may be struggling with addiction, tell your health career services director and ask for guidance or call [facility] National Helpline at 0-755-342-NDPK. f Source: US Department of Health and Human Services/Center for Disease Control & Prevention [facility] Medications Given: Medication Dose Route Sodium Chloride 0.9% intra (more content not included)... Normal [facility] HEMATOLOGYOrdered By: SYSTEM SYSTEM on 01-06-2024 Basophils (Bld) [#/Vol] 0.0 E9/L Normal 0.0 - 0.2 E9/L Remisol Heme Basophils/100 WBC (Bld) 0.0 % Normal 0.0 - 2.0 % Remisol Heme Eosinophils (Bld) [#/Vol] 0.4 E9/L Normal 0.0 - 0.5 E9/L Remisol Heme Eosinophils/100 WBC (Bld) 2.0 % Normal 0.0 - 8.0 Remisol Heme Erythrocyte distribution width (RBC) [Ratio] 13.6 % Normal 10.9 - 14.2 % Remisol Heme Hematocrit (Bld) [Volume fraction] 47.8 % Normal 37.7 - 49.0 % Remisol Heme Hemoglobin (Bld) [Mass/Vol] 15.9 g/dL Normal 13.5 - 17.5 gm/dL Remisol Heme Lymphocytes (Bld) [#/Vol] 2.2 E9/L Normal 1.0 - 4.0 E9/L Remisol Heme Lymphocytes/100 WBC (Bld) 4.0 % Low 14.0 - 50.0 % Remisol Heme MCH (RBC) [Entitic mass] 29.7 pg Normal 27.0 - 34.0 pg Remisol Heme MCHC (RBC) [Mass/Vol] 33.3 g/dL Normal 31.4 - 36.0 gm/dL Remisol Heme MCV (RBC) [Entitic vol] 89.1 fL Normal 80.0 - 100.0 fL Remisol Heme Monocytes (Bld) [#/Vol] 0.9 E9/L Normal 0.2 - 1.0 E9/L Remisol Heme Monocytes/100 WBC (Bld) 5.0 % Normal 4.0 - 14.0 % Remisol Heme Neutrophils (Bld) [#/Vol] 15.2 E9/L Invalid Interpretation Code Remisol Heme Platelet mean volume (Bld) [Entitic vol] 8.4 fL Normal 6.4 - 10.8 fL Remisol Heme Platelets (Bld) [#/Vol] 207.0 E9/L Normal 150.0 - 500.0 E9/L Remisol Heme RBC (Bld) [#/Vol] 5.4 E12/L Normal 4.3 - 5.9 E12/L Remisol Heme RBC size Nom (Bld) NORMAL *NA* (01/06/24 8:44 AM) Invalid Interpretation Code Remisol Heme Segmented neutrophils/100 WBC (Bld) 81 % High 50 - 70 % Remisol Heme Variant lymphocytes/100 WBC (Bld) 8 % High <=0% Remisol Heme WBC corrected for nucl RBC Auto (Bld) [#/Vol] 18.8 E9/L High 4.0 - 11.0 E9/L Remisol Heme Hep Func Panelon 01-06-2024 Albumin [Mass/Vol] 3.9 g/dL Normal 3.3-5.0 [facility] Comment on above: Performed By: #### 2 [id number] #### [facility] [address] [place] [address] Albumin/Globulin (S) [Mass conc ratio] 1.3 Normal 1.1-2.2 [facility] Comment on above: Performed By: #### 2 [id number] #### [facility] [address] [place] [address] ALP [Catalytic activity/Vol] 52 Int._Unit/L Normal 21-98 [facility] Comment on above: Performed By: #### 2 [id number] #### [facility] [address] [place] [address] ALT No additional P-5'-P [Catalytic activity/Vol] 13 Int._Unit/L Normal 6-46 [facility] Comment on above: Performed By: #### 2 [id number] #### [facility] [address] [place] [address] AST [Catalytic activity/Vol] 11 Int._Unit/L Normal 5-43 [facility] Comment on above: Performed By: #### [id number] #### [facility] [address] [place] [address] Bilirubin [Mass/Vol] 0.7 mg/dL Normal 0.0-1.1 [facility] Comment on above: Performed By: #### 2 [id number] #### [facility] [address] [place] [address] Bilirubin.direct [Mass/Vol] 0.2 mg/dL Normal 0.0-0.4 [facility] Comment on above: Performed By: #### 2 [id number] #### [facility] [address] [place] [address] Bilirubin.indirect [Mass or moles/Vol] 0.5 mg/dL Normal 0.1-0.9 [facility] Comment on above: Performed By: #### 2 [id number] #### [facility] [address] [place] [address] Globulin (S) [Mass/Vol] 3.0 g/dL Normal 1.4-4.0 [facility] Comment on above: Performed By: #### 2 [id number] #### [facility] [address] [place] [address] Protein [Mass/Vol] 6.9 g/dL Normal 6.0-7.8 [facility] Comment on above: Performed By: #### 2 [id number] #### [facility] [address] [place] [address] Lipase Levelon 01-06-2024 Lipase [Catalytic activity/Vol] 12 U/L Low 13-58 [facility] Comment on above: Performed By: #### 2 [id number] #### [facility] [address] [place] [address] PT & PTTon 01-06-2024 aPTT Coag (PPP) [Time] 33.5 second(s) Normal 25.1-36.5 [facility] Comment on above: Result Comment: Para meter 15 days - 4 weeks 1 - 5 months 6 - 11 months 1 - 5 years 6 - 10 years 11 - 17 years PTT Mean: 35.4 (27.6-45.6) Mean: 33.5 (24.8-40.7) Mean: 32.4 (25.1-40.7) Mean: 31.6 (24.0-39.2) Mean: 31.6 (26.9-38.7) Mean: 31.0 (24.6-38.4) Pediatric Reference ranges were obtained from a study by Choco Carlos et al. prepared from 1437 samples obtained at 7 different centers using the same coagulation reagent and instrumentation as [facility]. Currently there are no coagulation studies available worldwide for children to 14 days, and no normal ranges. Heparin therapeutic range (represented by Anti-Factor Xa activity of 0.2 - 0.4 U/mL) corresponds to PTT of 56.6 - 109.0 sec. Performed By: #### 1 [id number] #### [facility] [address] [place] [address] INR Coag (PPP) [Relative time] 1.04 {INR} Invalid Interpretation Code [facility] Comment on above: Result Comment: INR results are specifically intended to assess patients stabilized on long-term Anticoagulation therapy suggested INR?s ?Less Intensive Anticoagulation? 2.0 ? 3.0 Conventional Range 3.0 ? 4.5 Performed By: #### 1 [id number] #### [facility] [address] [place] [address] PT Coag (PPP) [Time] 11.7 second(s) Normal 9.4-12.5 [facility] Comment on above: Result Comment: 15 d ays - 4 weeks 1 - 5 months 6 -11 months 1 ? 5 years 6 ? 10 years 11 -17 years Mean: 11.2 (9.5 ? 12.6) Mean: 11.0 (9.7 ? 12.8) Mean: 11.0 (9.8 ? 13.0) Mean: 11.3 (9.9 ? 13.4) Mean: 11.7 (10.0 ? 14.6) Mean: 11.8 (10.0 - 14.1) Pediatric Reference ranges were obtained from a study by Choco Carlos et al. prepared from 1437 samples obtained at 7 different centers using the same coagulation reagent and instrumentation as [facility]. Currently there are no coagulation studies available worldwide for children to 14 days, and no normal ranges. Performed By: #### 1 [id number] #### [facility] [address] [place] [address] Troponin 0 Hr.on 01-06-2024 Troponin HS 3.30 pg/mL Low 15.90-38.40 [facility] Comment on above: Result Comment: The 95% CI (Confidence Interval) PPV (Positive Predictive Value) for myocardial infarction in females is 38 pg/mL, in males 51 pg/mL. The results should be used in conjunction with clinical conditions of myocardial infarction. (Access High Sensitivity Troponin I Instructions For Use, Chelsey Isai, March 2018) Performed By: #### 1 [id number] #### [facility] [address] [place] [address] UA with Cult Rflxon 01-06-20 24 Bilirubin Ql (U) Negative Normal Negative [facility] Comment on above: Performed By: #### 4 [id number] #### [facility] [address] [place] [address] Clarity (U) Clear Normal Clear [facility] Comment on above: Performed By: #### 4 [id number] #### [facility] [address] [place] [address] Color (U) Light-Yellow Normal Yellow [facility] Comment on above: Result Comment: Micr oscopic readings are only performed on those samples that meet specific criteria set forth by [facility]. Performed By: #### 4 [id number] #### [facility] [address] [place] [address] Glucose Ql (U) Negative Normal Negative [facility] Comment on above: Performed By: #### 4 [id number] #### [facility] [address] [place] [address] Hemoglobin Auto test strip (U) [Mass/Vol] Negative Normal Negative [facility] Comment on above: Performed By: #### 4 [id number] #### [facility] [address] [place] [address] Ketones Auto test strip Ql (U) Negative Normal Negative [facility] Comment on above: Performed By: #### 4 [id number] #### [facility] [address] [place] [address] Leukocyte esterase Auto test strip Ql (U) Negative Normal Negative [facility] Comment on above: Performed By: #### 4 [id number] #### [facility] [address] [place] [address] Nitrite Auto test strip Ql (U) Negative Normal Negative [facility] Comment on above: Performed By: #### 4 [id number] #### [facility] [address] [place] [address] pH (U) 6.5 [pH] Invalid Interpretation Code 5.0-9.0 [facility] Comment on above: Performed By: #### 4 [id number] #### [facility] [address] [place] [address] Protein Ql (U) Negative Normal Negative [facility] Comment on above: Performed By: #### 4 [id number] #### [facility] [address] [place] [address] Specific gravity (U) [Rel density] 1.021 Invalid Interpretation Code 1.005-1.030 [facility] Comment on above: Performed By: #### 4 [id number] #### [facility] [address] [place] [address] Urobilinogen (U) [Mass/Vol] Negative Normal Negative [facility] Comment on above: Performed By: #### 4 [id number] #### [facility] [address] [place] [address] Type of Urine collection method Clean Catch Normal [facility] Comment on above: Performed By: #### 4 [id number] #### [facility] [address] [place] [address] URINALYSISOrdered By: SYSTEM SYSTEM on 01-06-2024 Bilirubin Ql (U) Negative Normal Negativemg/ d L [facility] UA Auto SS Clarity (U) Clear (01/06/24 6:47 PM) Normal Clear [facility] UA Auto SS Color (U) Light-Yellow 1 (01/06/24 6:47 PM) Normal Yellow [facility] Auto SS Comment on above: Interpretive Data: M icroscopic readings are only performed on those samples that meet specific criteria set forth by [facility]. Glucose Ql (U) Negative Normal Negativemg/d L [facility] UA Auto SS Hemoglobin Auto test strip (U) [Mass/Vol] Negative Normal Negativemg/d L [facility] UA Auto SS Ketones Auto test strip Ql (U) Negative Normal Negativemg/d L [facility] UA Auto SS Leukocyte esterase Auto test strip Ql (U) Negative Normal NegativeLeu/ uL [facility] UA Auto SS Nitrite Auto test strip Ql (U) Negative Normal Negativemg/d L [facility] UA Auto SS pH (U) 6.5 *NA* (01/06/24 6:47 PM) Invalid Interpretation Code 5.0 - 9.0 [facility] UA Auto SS Protein Ql (U) Negative Normal Negativemg/d L [facility] UA Auto SS Specific gravity (U) [Rel density] 1.021 *NA* (01/06/24 6:47 PM) Invalid Interpretation Code 1.005 - 1.030 [facility] UA Auto SS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 [address] PATHOLOGIST INFORMATION RECEPTIONIST REGINA LUA M.D. Performed By: #### C EPHEID NEG, COVID19 FLU RSV #### [facility] [address] Vital Signs Date Time Vital Sign Value Performing Clinician Braden egan 04-07-2024 15:49-0400 Blood Pressure Location Ford Link [facility] 04-07-2024 15:49-0400 Diastolic blood pressure 74 mm[Hg] Ford Link [facility] 04-07-2024 15:49-0400 Heart rate 70 /min Ford Link [facility] 04-07-2024 15:49-0400 SaO2% (BldA) [Mass fraction] 96 % Ford Link [facility] 04-07-2024 15:49-0400 Systolic blood pressure 122 mm[Hg] Ford Link [facility] 01-28-2024 07:43-0400 Blood Pressure Location Ford Link [facility] 01-28-2024 07:43-0400 Diastolic blood pressure 72 mm[Hg] Ford Link [facility] 01-28-2024 07:43-0400 Heart rate 72 /min [facility] Link [facility] 01-28-2024 07:43-0400 SaO2% (BldA) [Mass fraction] 99 % Ford [facility] 01-28-2024 07:43-0400 Systolic blood pressure 118 mm[Hg] Ford Link [facility] 01-13-2024 10:25-0400 Body temperature 97.88 [degF] Justin Garvey [facility] 01-13-2024 10:25-0400 Diastolic blood pressure 76 mm[Hg] Justin Garvey [facility] 01-13-2024 10:25-0400 Heart rate 79 /min Justin Garvey [facility] 01-13-2024 10:25-0400 Systolic blood pressure 112 mm[Hg] Justin Garvey [facility] 01-12-2024 07:48-0400 Blood Pressure Location [facility] 01-12-2024 07:48-0400 Body temperature 98.42 [degF] [facility] Link [facility] 01-12-2024 07:48-0400 Diastolic blood pressure 74 mm[Hg] Ford Link [facility] 01-12-2024 07:48-0400 Heart rate 76 /min [facility] Link [facility] 01-12-2024 07:48-0400 Respiratory rate 15 /min Ford Link [facility] 01-12-2024 07:48-0400 SaO2% (BldA) [Mass fraction] 99 % Ford Link [facility] 01-12-2024 07:48-0400 Systolic blood pressure 120 mm[Hg] Ford Link [facility] 01-10-2024 14:00-0400 Diastolic blood pressure 93 mm[Hg] Kaylinn Dokken [facility] 01-10-2024 14:00-0400 Heart rate 95 /min Kaylinn Dokken [facility] 01-10-2024 14:00-0400 Mean blood pressure 107 mm[Hg] Kaylinn Dokken [facility] 01-10-2024 14:00-0400 Respiratory rate 18 /min Kaylinn Dokken [facility] 01-10-2024 14:00-0400 SaO2% (BldA) [Mass fraction] 96 % Kaylinn Dokken [facility] 01-10-2024 14:00-0400 Systolic blood pressure 134 mm[Hg] Kaylinn Dokken [facility] 01-10-2024 00:28-0400 Body temperature 97.7 [degF] Kaylinn Dokken [facility] 01-10-2024 00:28-0400 Diastolic blood pressure 80 mm[Hg] Kaylinn Dokken [facility] 01-10-2024 00:28-0400 Heart rate 85 /min Kaylinn Dokken [facility] 01-10-2024 00:28-0400 Respiratory rate 16 /min Kaylinn Dokken [facility] 01-10-2024 00:28-0400 SaO2% (BldA) [Mass fraction] 98 % Kaylinn Dokken [facility] 01-10-2024 00:28-0400 Systolic blood pressure 120 mm[Hg] Kaylinn Dokken [facility] 01-08-2024 11:00-0400 Hourly Rounding Ivette Robenstine [facility] 01-08-2024 11:00-0400 Promise to Return Ivette Robenstine [facility] 01-08-2024 10:00-0400 Hourly Rounding Ivette Robenstine [facility] 01-08-2024 10:00-0400 Promise to Return Ivette Robenstine [facility] 01-08-2024 09:39-0400 Hourly Rounding Ivette Robenstine [facility] 01-08-2024 09:39-0400 Promise to Return Ivette Robenstine [facility] 01-08-2024 07:37-0400 Heart rate 58 /min Ivette Robenstine [facility] 01-08-2024 07:37-0400 SaO2% (BldA) [Mass fraction] 98 % Ivette Robenstine [facility] 01-08-2024 07:37-0400 Body temperature 97.7 [degF] Ivette Robenstine [facility] 01-08-2024 07:36-0400 Diastolic blood pressure 71 mm[Hg] Ivette Robenstine [facility] 01-08-2024 07:36-0400 Mean blood pressure 82 mm[Hg] Ivette Robenstine [facility] 01-08-2024 07:36-0400 Systolic blood pressure 106 mm[Hg] Ivette Robenstine [facility] 01-08-2024 00:00-0400 Body temperature 98.06 [degF] Ivette Robenstine [facility] 01-08-2024 00:00-0400 Diastolic blood pressure 66 mm[Hg] Ivette Robenstine [facility] 01-08-2024 00:00-0400 Heart rate 96 /min Ivette Robenstine [facility] 01-08-2024 00:00-0400 Respiratory rate 6 /min Ivette Robenstine [facility] 01-08-2024 00:00-0400 SaO2% (BldA) [Mass fraction] 96 % Ivette Robenstine [facility] 01-08-2024 00:00-0400 Systolic blood pressure 111 mm[Hg] Ivette Robenstine [facility] 01-07-2024 23:34-0400 SaO2% (BldA) [Mass fraction] 98 % Ivette Robenstine [facility] 01-07-2024 19:39-0400 Heart rate 82 /min Ivette Robenstine [facility] 01-07-2024 19:34-0400 Body temperature 97.52 [degF] Ivette Robenstine [facility] 01-07-2024 19:34-0400 Diastolic blood pressure 80 mm[Hg] Ivette Robenstine [facility] 01-07-2024 19:34-0400 Mean blood pressure 94 mm[Hg] Ivette Robenstine [facility] 01-07-2024 19:34-0400 Systolic blood pressure 120 mm[Hg] Ivette Robenstine [facility] 01-07-2024 19:00-0400 Respiratory rate 17 /min Ivette Robenstine [facility] 01-07-2024 16:43-0400 Mean blood pressure 78 mm[Hg] Ivette Robenstine [facility] 01-07-2024 16:15-0400 Body temperature 97.88 [degF] Ivette Robenstine [facility] 01-07-2024 16:15-0400 Mean blood pressure 79 mm[Hg] Ivette Robenstine [facility] 01-07-2024 16:15-0400 Respiratory rate 20 /min Ivette Robenstine [facility] 01-07-2024 16:05-0400 Mean blood pressure 76 mm[Hg] Ivette Robenstine [facility] 01-07-2024 16:05-0400 Respiratory rate 15 /min Ivette Robenstine [facility] 01-07-2024 16:00-0400 Mean blood pressure 83 mm[Hg] Ivette Robenstine [facility] 01-07-2024 16:00-0400 Respiratory rate 30 /min Ivette Robenstine [facility] 01-07-2024 15:50-0400 Body temperature 97.88 [degF] Ivette Robenstine [facility] 01-07-2024 15:50-0400 FIO2 100 1 Ivette Robenstine [facility] 01-07-2024 15:50-0400 Respiratory rate 1 /min Ivette Robenstine [facility] 01-07-2024 15:45-0400 FIO2 100 1 Ivette Robenstine [facility] 01-07-2024 15:40-0400 FIO2 100 1 Ivette Robenstine [facility] 01-07-2024 10:57-0400 Blood Pressure Location Ivette Robenstine [facility] 01-06-2024 14:25-0400 Body temperature 98.42 [degF] Ivette Fernandeztine [facility] 01-06-2024 08:09-0400 Body temperature 98.06 [degF] Ivette Lunaenstine [facility] 01-06-2024 08:09-0400 Heart rate 75 /min Ivette Fernandeztine [facility] 12-17-2023 16:47-0400 Blood Pressure Location [facility] 12-17-2023 16:47-0400 Diastolic blood pressure 74 mm[Hg] [facility] 12-17-2023 16:47-0400 Heart rate 60 /min [facility] 12-17-2023 16:47-0400 SaO2% (BldA) [Mass fraction] 98 % [facility] 12-17-2023 16:47-0400 Systolic blood pressure 116 mm[Hg] [facility] 11-17-2023 17:48-0400 Blood Pressure Location [facility] 11-17-2023 17:48-0400 Diastolic blood pressure 78 mm[Hg] [facility] 11-17-2023 17:48-0400 Heart rate 82 /min [facility] 11-17-2023 17:48-0400 SaO2% (BldA) [Mass fraction] 98 % [facility] 11-17-2023 17:48-0400 Systolic blood pressure 122 mm[Hg] [facility] 10-16-2023 14:35-0500 Blood Pressure Location [facility] 10-16-2023 14:35-0500 Body temperature 98.06 [degF] [facility] 10-16-2023 14:35-0500 Diastolic blood pressure 62 mm[Hg] [facility] 10-16-2023 14:35-0500 Heart rate 80 /min [facility] 10-16-2023 14:35-0500 Respiratory rate 15 /min [facility] 10-16-2023 14:35-0500 SaO2% (BldA) [Mass fraction] 98 % [facility] 10-16-2023 14:35-0500 Systolic blood pressure 128 mm[Hg] [facility] 10-06-2023 11:35-0500 Blood Pressure Location [facility] 10-06-2023 11:35-0500 Diastolic blood pressure 78 mm[Hg] [facility] 10-06-2023 11:35-0500 Heart rate 75 /min [facility] 10-06-2023 11:35-0500 SaO2% (BldA) [Mass fraction] 98 % [facility] 10-06-2023 11:35-0500 Systolic blood pressure 118 mm[Hg] [facility] 06-19-2023 08:53-0500 Blood Pressure Location Fadi NILL [facility] 06-19-2023 08:53-0500 Diastolic blood pressure 81 mm[Hg] Fadi NILL [facility] 06-19-2023 08:53-0500 Heart rate 63 /min Fadi NILL [facility] 06-19-2023 08:53-0500 Respiratory rate 16 /min Fadi NILL [facility] 06-19-2023 08:53-0500 Systolic blood pressure 138 mm[Hg] Fadi NILL [facility] 06-05-2023 01:48-0400 Body temperature 97.7 [degF] Kaylinn Dokken [facility] 06-05-2023 01:48-0400 Diastolic blood pressure 78 mm[Hg] Kaylinn Dokken [facility] 06-05-2023 01:48-0400 Heart rate 65 /min Rhiannonylinn Dokken [facility] 06-05-2023 01:48-0400 Respiratory rate 18 /min Rhiannonylinn Dokken [facility] 06-05-2023 01:48-0400 SaO2% (BldA) [Mass fraction] 98 % Kaylinn Dokken [facility] 06-05-2023 01:48-0400 Systolic blood pressure 137 mm[Hg] Kaylinn Dokken [facility] 01-02-2023 09:39-0400 Blood Pressure Location Ivette Robenstine [facility] 01-02-2023 09:39-0400 Body temperature 98.06 [degF] Ivette Robenstine [facility] 01-02-2023 09:39-0400 Diastolic blood pressure 78 mm[Hg] Ivette Robenstine [facility] 01-02-2023 09:39-0400 Heart rate 59 /min Ivette Robenstine [facility] 01-02-2023 09:39-0400 Respiratory rate 18 /min Ivette Robenstine [facility] 01-02-2023 09:39-0400 SaO2% (BldA) [Mass fraction] 99 % Ivette Robenstine [facility] 01-02-2023 09:39-0400 Systolic blood pressure 131 mm[Hg] Ivette Robenstine [facility] 02-24-2022 12:52-0400 Blood Pressure Location KATE SIDELL [facility] 02-24-2022 12:52-0400 Diastolic blood pressure 86 mm[Hg] KATE SIDELL [facility] 02-24-2022 12:52-0400 Heart rate 70 /min KATE SIDELL [facility] 02-24-2022 12:52-0400 SaO2% (BldA) [Mass fraction] 97 % KATE SIDELL [facility] 02-24-2022 12:52-0400 Systolic blood pressure 140 mm[Hg] KATE SIDELL [facility] 02-14-2022 13:29-0400 Blood Pressure Location KATE SIDELL [facility] 02-14-2022 13:29-0400 Diastolic blood pressure 84 mm[Hg] KATE SIDELL [facility] 02-14-2022 13:29-0400 Heart rate 70 /min KATE SIDELL [facility] 02-14-2022 13:29-0400 SaO2% (BldA) [Mass fraction] 99 % KATE SIDELL [facility] 02-14-2022 13:29-0400 Systolic blood pressure 136 mm[Hg] KATE SIDELL [facility] 12-25-2021 08:10-0400 Body temperature 97.52 [degF] Yared Puente [facility] 12-25-2021 08:10-0400 Diastolic blood pressure 74 mm[Hg] Yared Kwame [facility] 12-25-2021 08:10-0400 Heart rate 70 /min Yared Kwame [facility] 12-25-2021 08:10-0400 Respiratory rate 18 /min Yared Kwame [facility] 12-25-2021 08:10-0400 SaO2% (BldA) [Mass fraction] 99 % Yared Kwame [facility] 12-25-2021 08:10-0400 Systolic blood pressure 143 mm[Hg] Yared Puente [facility] Encounters Encounter Date Encounter Type Care Provider Facility Start: 06-24-2024 ambulatory Ford C Link Facility:[facility] Start: 04-25-2024 End: 04-25-2024 ambulatory Ford C Link Facility:[facility] Start: 04-07-2024 End: 04-07-2024 ambulatory Ford C Link Facility:[facility] Start: 04-07-2024 End: 04-07-2024 Patient encounter procedure Ford C Link [facility] Start: 01-28-2024 End: 01-28-2024 ambulatory Ford C Link Facility:[facility] Start: 01-28-2024 End: 01-28-2024 Patient encounter procedure Ford C Link [facility] Start: 01-13-2024 End: 01-13-2024 ambulatory Gabbi Salinas Facility:[facility] Start: 01-13-2024 End: 01-13-2024 Patient encounter procedure Justin Garvey [facility] Start: 01-12-2024 End: 01-12-2024 ambulatory Ford C Link Facility:[facility] Start: 01-12-2024 End: 01-12-2024 Patient encounter procedure Ford C Link [facility] Start: 01-11-2024 End: 02-09-2024 ambulatory Ford C Link Facility:[id number] Start: 01-10-2024 End: 01-10-2024 Emergency department patient visit Paris Brannon Facility:[facility] Start: 01-06-2024 ambulatory Ivette Bone acility:[facility] Start: 01-06-2024 End: 01-08-2024 ambulatory Ivette Ash Facility:[facility] Start: 01-06-2024 Emergency department patient visit Johnny Moctezuma Facility:[facility] Start: 01-06-2024 End: 01-08-2024 Observation Ivette Ash [facility] Start: 12-17-2023 End: 12-17-2023 ambulatory Ford C Link Facility:[facility] Start: 12-17-2023 End: 12-17-2023 Patient encounter procedure Ford C Link [facility] Start: 11-17-2023 End: 11-17-2023 ambulatory Ford C Link Facility:[facility] Start: 11-17-2023 End: 11-17-2023 Patient encounter procedure Ford C Link [facility] Start: 10-16-2023 End: 10-16-2023 ambulatory Ford C Link Facility:[facility] Start: 10-16-2023 End: 10-16-2023 Patient encounter procedure Ford C Link [facility] Start: 10-06-2023 End: 10-06-2023 ambulatory Ford C Link Facility:[facility] Start: 10-06-2023 End: 10-06-2023 Patient encounter procedure Ford C Link [facility] Start: 09-02-2023 End: 09-02-2023 ambulatory Ankur Faria Facility:[facility] Start: 09-02-2023 End: 09-02-2023 Patient encounter procedure Ankur Faria [facility] Start: 06-19-2023 End: 06-19-2023 ambulatory Fadi RAHMAN Facility: [facility] Start: 06-19-2023 End: 06-19-2023 Patient encounter procedure Fadi RAHMAN [facility] Start: 06-05-2023 ambulatory Franklin Spasic Facil ity:[facility] Start: 06-05-2023 End: 06-05-2023 Emergency department patient visit Paris Brannon [facility] Start: 03-02-2023 End: 03-02-2023 ambulatory Franklin V. Spasic Facility: [place] Start: 01-02-2023 End: 01-02-2023 Patient encounter procedure Ivette Ash [facility] Start: 09-06-2022 End: 09-06-2022 Emergency department patient visit Jose Elias Oliver Jr Facility:[facility] Start: 02-24-2022 End: 02-24-2022 Patient encounter procedure KATE Ornelas RADHA [facility] Start: 02-14-2022 End: 02-14-2022 Patient encounter procedure KATE GARCIA [facility] Start: 02-10-2022 End: 02-10-2022 Emergency department patient visit Andrés Christopher Facility:[facility] Start: 12-25-2021 End: 12-25-2021 Emergency department patient visit Yared Puente [facility] Procedures Date Procedure Procedure Detail Performing Clinician Start: 01-07-2024 Cholecystectomy and operative cholangiogram Ivette Ash Start: 06-02-2023 Incision and drainage of perirectal abscess Fadi RAHMAN History of cholecystectomy History of cholecystectomy Ford Bauman Incision and drainag e of perirectal abscess Fadi RAHMAN None (qualifier value) Yared Kwame Immunizations Immunization Date Immunization Notes Care Provider Yudelka mccarthy 01-22-2021 SARS-CoV-2 (COVID-19 ) mRNA-1273 vaccine Fadi RAHMAN [facility] 12-17-2020 SARS-CoV-2 (COVID-19 ) mRNA-1273 vaccine Fadi RAHMAN [facility] 02-25-2019 tetanus toxoid, reduced diphtheria toxoid, and acellular pertussis vaccine, adsorbed Ford Link [facility] NEGATED: Highlighted row has not occurred!12-17-2023 influenza virus vaccine, unspecified formulation Ford Link [facility] NEGATED: Highlighted row has not occurred!11-17-2023 influenza virus vaccine, unspecified formulation Ford Link [facility] NEGATED: Highlighted row has not occurred!10-16-2023 influenza virus vaccine, unspecified formulation Ford Link [facility] NEGATED: Highlighted row has not occurred!10-06-2023 influenza virus vaccine, unspecified formulation Ford Link [facility] NEGATED: Highlighted row has not occurred!06-19-2023 influenza virus vaccine, unspecified formulation Fadi RAHMAN [facility] Payers Date Payer Category Payer Self-pay 2022 Unknown [id number] 1975 Unknown [id number] 2.16.8 [id number] 1975 Unknown [id number] 2.16.8 40.1.676986.3.579.2. 1975 Unknown [id number] 2.16.8 40.1.201665.3.579.2 1975 Unknown [id number] 2.16.8 40.1.392767.3.579.2. 1975 Unknown [id number] 2.16.8 40.1.083322.3.579.2 1975 Unknown [id number] 2.16.8 40.1.985295.3.579.2 1975 Unknown [id number] 2.16.8 40.1.907785.3.579.2 1975 Unknown [id number] 2.16.8 40.1.208362.3.579.2 1975 Unknown [id number] 2.16.8 40.1.168998.3.579.2 1975 Unknown [id number] 2.16.8 40.1.137297.3.579.2 1975 Unknown [id number] 2.16.8 40.1.112221.3.579.2 1975 Unknown [id number] 2.16.8 40.1.004648.3.579.2 1975 Unknown [id number] 2.16.8 40.1.125751.3.579.2 1975 Unknown [id number] 2.16.8 40.1.302676.3.579.2 1975 Unknown [id number] 2.16.8 40.1.905707.3.579.2 1975 Unknown [id number] 2.16.8 40.1.534096.3.579.2 1975 Unknown [id number] 2.16.8 40.1.747595.3.579.2 1975 Unknown [id number] 2.16.8 40.1.509042.3.579.2.727 1975 Unknown [id number] 2.16.8 40.1.742172.3.579.2.727 1975 Unknown [id number] 2.16.8 40.1.809022.3.579.2.727 1975 Unknown [id number] 2.16.8 40.1.280982.3.579.2.727 1975 Unknown [id number] 2.16.8 40.1.102701.3.579.2.727 Unknown [id number] 2.16.8 40.1.295383.3.579.2.531 Unknown [id number] 2.16.8 40.1.533607.3.579.2.531 Social History Date Type Detail Facility Start: 08-24-2015 Tobacco smoking status Smokes tobacco daily (finding) [facility] Comment on above: 08/13 PPD Sex Assigned At Male [facility] Start: 02-14-2022 End: 04-07-2024 Tobacco smoking status Light tobacco smoker (finding) [facility] Comment on above: girlfriend smokes in home Tobacco smoking status Never [facility] [place] Comment on above: girlfriend smokes in home Start: 01-02-2023 Tobacco smoking status Ex-smoker (fi nding) [facility] Start: 06-19-2023 Tobacco smoking status Heavy t obacco smoker (finding) [facility] General Surgery [place] Functional Status Date Assessment Result Facility 04-07-2024 Functional Status N/A [facility] 01-28-2024 Functional Status N/A [facility] 01-12-2024 Functional Status N/A [facility] 01-10-2024 Functional Status N/A [facility] 01-06-2024 Functional Status N/A [facility] 01-06-2024 Functional Status [facility] 12-17-2023 Functional Status N/A [facility] 11-17-2023 Functional Status N/A [facility] 10-16-2023 Functional Status N/A [facility] 10-06-2023 Functional Status N/A [facility] 06-19-2023 Functional Status N/A [facility] General Surgery [place] 06-05-2023 Functional Status N/A [facility] 02-24-2022 Functional Status N/A [facility] 02-14-2022 Functional Status N/A [facility] Clinical Notes 12-25-2021 to 01-12-2024 Note Date & Type Note Facility 01-12-2024 Hospital Discharg e instructions Follow Up Care 01/12/2024 08:26:06 With:Ford Bauman DO, FAM Address: [address] [address]- When:3 months Comments:Controlled Medication Followup [facility] 01-10-2024 Evaluation + Plan note Extrac delia from: Title:ED Note Author:Paris Brannon DO Date :01/10/24 Encounter for recheck of abs cess following incision and drainage (Z09: Encounter for follow-up examination after completed treatment for conditions other than malignant neoplasm) Orders: oxycodone, 5 mg = 1 tab(s), Tab, Oral, Once, Stop date 01/10/24 1:02:00 EDT, STAT, Start date 01/10/24 1:02:00 EDT, 01/10/24 1:02:00 EDT CBC w/ Auto Diff Comprehensive Metabolic Panel eGFR Future Appointments Appointment Date:01/12/2024 07:40:00 AM Scheduled Provider:Ford Bauman DO Location:[facility] Appointment Type:FM Open [facility]06-02-2024 NoteDISCHARGE SUMMARY [address] [address] MAO ESCOBEDO Date of : 1975 48 Years Male Attending Ivette Ash MD Date of Admission 01/06/2024 Date of Discharge 01/08/2024 DIAGNOSES: Acute cholecystitis PROCEDURES: Procedures Laparoscopic cholecystectomy 01/07/2024 Dr. Ash DISCHARGE MEDICATIONS: DISCHARGE MEDICATIONS Medication List Active Medications Ordered acetaminophen: 650 mg, 2 tab(s), Oral, q6hr. heparin: 5,000 unit(s), 1 mL, SubCutaneous, q8hrFT. HYDROmorphone: 0.5 mg, 0.5 mL, IV Push, q4hr, PRN: Breakthrough Pain. Lactated Ringers Injection 1,000 mL: 150 mL/hr, IV, Stop: 02/06/24 8:07:00 EDT. Lactated Ringers Injection 1,000 mL: 100 mL/hr, IV, Stop: 02/05/24 23:59:00 EDT. ondansetron: 4 mg, 2 mL, IV Push, q6hr, PRN: Nausea/Vomiting. oxycodone: 5 mg, 1 tab(s), Oral, q4hr, PRN: Pain 4-7. oxycodone: 10 mg, 2 tab(s), Oral, q4hr, PRN: Pain 8-10. piperacillin-tazobactam + Sodium Chloride 0.9% intravenous solution 50 mL: 3.375 gm, 1 EA, 100 mL/hr, IV Piggyback, q6hrFT. senna: 8.6 mg, 1 tab(s), Oral, Once a day (at bedtime). Prescribed cyclobenzaprine: 10 mg, 1 tab(s), Oral, TID, PRN: for spasm, 30 tab(s), 1 Refill(s). phentermine: 37.5 mg, 1 tab(s), Oral, Daily, before breakfast, 30 tab(s), 0 Refill(s). Documented acetaminophen: 650 mg, 2 tab(s), Oral, q6hr, 0 Refill(s). REASON FOR HOSPITALIZATION: 48 y/o male presents with abdominal pain since Thursday (4 days prior). He states the pain started epigastric but then moved right sided and grew worse as time went on. Today, he started having nausea which is what prompted him to come to the ED. He has had bowel movements which are occasionally loose (this is normal for him) and has had an appetite. No prior abdominal surgeries. Takes flexeril and phentermine, no other medications. SIGNIFICANT FINDINGS: Acute cholecystitis HOSPITAL COURSE: 01/06/24: Patient was seen in the ER, found to have acute cholecystitis and was admitted to the regular nursing floor for IV antibiotics with plan for laparoscopic cholecystectomy tomorrow 01/07/24: Patient underwent laparoscopic cholecystectomy. Found to have acute and is, hemorrhagic cholecystitis and had a 400 cc blood loss intraoperatively. Elected for patient to remain on the regular nursing floor for further evaluation and observation overnight. Patient also had ALESSANDRO drain placed to evaluate for bile leak. 01/08/24: Pt advancing as expected, tolerating regular diet, no N/V. Pain well controlled, ambulating unassisted, voiding spontaneously. No evidence of bile leak, labs unremarkable. Pt is medically cleared for DC at this time with close outpatient follow-up with the EGS clinic. Patient will be discharged home on 3 days of oral antibiotics to complete a 4-day postoperative antibiotic course. The patient was seen and examined on the day of discharge with the following findings: GENERAL: alert, pleasant, conversational. HEENT: normocephalic. oral mucosa moist. CARDIOVASCULAR: RRR. PULMONARY: CTAB. breathing comfortably on room air ABDOMINAL: abdomen is nontender., nondistended. Lap lew incisions C/D/I. No erythema, drainage, induration, fluctuance noted. EXTREMITIES: moves all extremities with equal strength NEUROLOGICAL: AxO x3 Given the excellent progress, the patient was determined stable for discharge. ANTICIPATED FOLLOW UP: With: Address: When: trauma clinic [address], second floor, [address] [place], [place] [id number] Within 1 to 2 weeks Comments: Call to schedule/confirm followup appointment Gabbi Salinas PA-C Trauma, Critical Care, & Emergency General Surgery >30 minutes was spent on the discharge of this patient including final examination of the patient, discussion of the hospital stay, instructions for continuing care to all relevant caregivers, preparation of discharge records, prescriptions and referral forms, and clear identification of reasonsto return to clinic or to emergency room. Physician Note: I have personally performed a face to face diagnostic evaluation on this patient. I have reviewed and agree with the care plan. reviewed surgical images with patient and , discussed reasons for return extensively. Follow upnext week for drain assessment, potential removal Ivette Ash MD [facility] Comment on above:Result Comment: Electronically Signed By: Gabbi Salinas PA-C\.br\Date and Time Signed: 01/08/24 11:30 EDT\.br\Electronically Co-Signed By: Nilsa SPICER, Ivette Rocha\.br\Date and Time Co-Signed: 01/10/24 12:18 EDT 01-10-2024 NoteMicrobiology PROCEDURE: Fluid Culture [R1] SOURCE: Fluid BODY SITE: COLLECTED DATE/TIME: 01/07/2024 13:05 EDT RECEIVED DATE/TIME: 01/07/2024 15:10 EDT START DATE/TIME: 01/07/2024 15:10 EDT FREE TEXT SOURCE: Gallbladder bile Nilsa SPICER, Ivette Ash MD, Ivette Rocha FINAL REPORTS Final Report [] Verified Date/Time: 01/10/2024 07:20 EDT No growth at 3 days. STAINS Gram Stain Report [] Verified Date/Time: 01/08/2024 12:32 EDT Occasional White Blood Cells No organisms seen. Performing Locations R1: This test was performed at: [facility], [address] [place] [address], [address] , , Sz[facility]qp[facility] HospitalComment on above:Performed By: #### [id number] ####[facility] [id number] [place], [place] [id number] Hospital Discharge instructions Patient Education 01/10/2024 02:02:51 Minimally Invasive Cholecystectomy, Care After, Qarp-hy-Bprc Minimally Invasive Cholecystectomy, Care After What can I expect after the procedure? After the procedure, it is common to: Have pain at the areas of surgery. You will be given medicines for pain. Vomit or feel like you may vomit. Feel fullness in the belly (bloating) or have pain in the shoulder. This comes from the gas that was used during the surgery. Follow these instructions at home: Medicines Take lxab-qsi-tjbzoed and prescription medicines only as told by your doctor. If you were prescribed an antibiotic medicine, take it as told by your doctor. Do not stop taking it even if you start to feel better. If told, take steps to prevent problems with pooping (constipation). You may need to: ?Drink enough fluid to keep your pee (urine) pale yellow. ?Take medicines. You will be told what medicines to take. ?Eat foods that are high in fiber. These include beans, whole grains, and fresh fruits and vegetables. ?Limit foods that are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 Exercise also: Improves mood. Reduces stress and tension. Improves your overall fitness, flexibility, and endurance. Increases bone strength. Moderate-intensity exercise Moderate-intensity exercise is any activity that gets you moving enough to burn at least three times more energy (calories) than if you were sitting. Examples of moderate exercise include: Walking a mile in 15 minutes. Doing light yard work. Biking at an easy pace. Most people should get at least 150 minutes of moderate-intensity exercise a week to maintain theirbody weight. Vigorous-intensity exercise Vigorous-intensity exercise is any activity that gets you moving enough to burn at least six times more calories than if you were sitting. When you exercise at this intensity, you should be working hard enough that you are not able to carry on a conversation. Examples of vigorous exercise include: Running. Playing a team sport, such as football, basketball, and soccer. Jumping rope. Most people should get at least 75 minutes a week of vigorous exercise to maintain their body weight. What actions can I take to lose weight? The amount of exercise you need to lose weight depends on: Your age. The type of exercise. Any health conditions you have. Your overall physical ability. Talk to your health care provider about how much exercise you need and what types of activities aresafe for you. Nutrition Make changes to your diet as told by your health care provider or diet and nutrition partner (dietitian). This may include: ?Eating fewer calories. ?Eating more protein. ?Eating less unhealthy fats. ?Eating a diet that includes fresh fruits and vegetables, whole grains, low-fat dairy products, andlean protein. ?Avoiding foods with added fat, salt, and sugar. Drink plenty of water while you exercise to prevent dehydration or heat stroke. Activity Choose an activity that you enjoy and set realistic goals. Your health care provider can help you make an exercise plan that works for you. Exercise at a moderate or vigorous intensity most days of the week. ?The intensity of exercise may vary from person to person. You can tell how intense a workout is for you by paying attention to your breathing and heartbeat. Most people will notice their breathing and heartbeat get faster with more intense exercise. Do resistance training twice each week, such as: ?Push-ups. ?Sit-ups. ?Lifting weights. ?Using resistance bands. Getting short amounts of exercise can be just as helpful as long, structured periods of exercise. If you have trouble finding time to exercise, try doing these things as part of your daily routine: ?Get up, stretch, and walk around every 30 minutes throughout the day. ?Go for a walk during your lunch break. ?Park your car farther away from your destination. ?If you take public transportation, get off one stop early and walk the rest of the way. ?Make phone calls while standing up and walking around. ?Take the stairs instead of elevators or escalators. Wear comfortable clothes and shoes with good support. Do not exercise so much that you hurt yourself, feel dizzy, or get very short of breath. Where to find more information U.S. Department of Health and Human Services: www.hhs.gov Centers for Disease Control and Prevention: www.cdc.gov Contact a health care provider: Before starting a new exercise program. If you have questions or concerns about your weight. If you have a medical problem that keeps you from exercising. Get help right away if: You have any of the following while exercising: ?Injury. ?Dizziness. ?Difficulty breathing or shortness of breath that does not go away when you stop exercising. ?Chest pain. ?Rapid heartbeat. These symptoms may represent a serious problem that is an emergency. Do not wait to see if the symptoms will go away. Get medical help right away. Call your local emergency services (911 in the [place] Do not drive yourself to the hospital. Summary Getting regular exercise is especially important if you are overweight. Being overweight increases your risk of heart disease, stroke, diabetes, high blood pressure, and several types of cancer. Losing weight happens when you burn more calories than you eat. Reducing the amount of calories you eat, and getting regular moderate or vigorous exercise each week, helps you lose weight. This information is not intended to replace advice given to you by your health care provider. Make sure you discuss any questions you have with your health care provider. Document Revised: 09/22/2021 Document Reviewed: 09/22/2021 [employer] Patient Education 2022 [employer]. 11/17/2023 18:01:38 BMI for Adults BMI for Adults What is BMI? Body mass index (BMI) is a number that is calculated from a person's weight and height. BMI can help estimate how much of a person's weight is composed of fat. BMI does not measure body fat directly.Rather, it is an alternative to procedures that directly measure body fat, which can be difficult and expensive. BMI can help identify people who may be at higher risk for certain medical problems. What are BMI measurements used for? BMI is used as a screening tool to identify possible weight problems. It helps determine whether a person is obese, overweight, a healthy weight, or underweight. BMI is useful for: Identifying a weight problem that may be related to a medical condition or may increase the risk for medical problems. Promoting changes, such as changes in diet and exercise, to help reach a healthy weight. BMI screening can be repeated to see if these changes are working. How is BMI calculated? BMI involves measuring your weight in relation to your height. Both height and weight are measured,and the BMI is calculated from those numbers. This can be done either in [place] ([place] or metric measurements. Note that charts and online BMI calculators are available to help you find your BMI quickly and easily without having to do these calculations yourself. To calculate your BMI in [place] ([place] measurements: 1.Measure your weight in pounds (lb). 2.Multiply the number of pounds by 703. For example, for a person who weighs 180 lb, multiply that number by 703, which equals 126,540. 3.Measure your height in inches. Then multiply that number by itself to get a measurement called inches squared. For example, for a person who is 70 inches tall, the inches squared measurement is 70 inches x 70inches, which equals 4,900 inches squared. 4.Divide the total from step 2 (number of lb x 703) by the total from step 3 (inches squared): 126,540 4,900 = 25.8. This is your BMI. To calculate your BMI in metric measurements: 1.Measure your weight in kilograms (kg). 2.Measure your height in meters (m). Then multiply that number by itself to get a measurement called meters squared. For example, for a person who is 1.75 m tall, the meters squared measurement is 1.75 m x 1.75 m, which is equal to 3.1 meters squared. 3.Divide the number of kilograms (your weight) by the meters squared number. In this example: 70 3.1 = 22.6. This is your BMI. What do the results mean? BMI charts are used to identify whether you are underweight, normal weight, overweight, or obese. The following guidelines will be used: Underweight: BMI less than 18.5. Normal weight: BMI between 18.5 and 24.9. Overweight: BMI between 25 and 29.9. Obese: BMI of 30 or above. Keep these notes in mind: Weight includes both fat and muscle, so someone with a muscular build, such as an athlete, may havea BMI that is higher than 24.9. In cases like these, BMI is not an accurate measure of body fat. To determine if excess body fat is the cause of a BMI of 25 or higher, further assessments may needto be done by a health care provider. BMI is usually interpreted in the same way for men and women. Where to find more information For more information about BMI, including tools to quickly calculate your BMI, go to these websites: Centers for Disease Control and Prevention: www.cdc.gov [place] [employer]: www.heart.org National Heart, Lung, and Blood [place]: www.nhlbi.nih.gov Summary Body mass index (BMI) is a number that is calculated from a person's weight and height. BMI may help estimate how much of a person's weight is composed of fat. BMI can help identify thosewho may be at higher risk for certain medical problems. BMI can be measured using [place] measurements or metric measurements. BMI charts are used to identify whether you are underweight, normal weight, overweight, or obese. This information is not intended to replace advice given to you by your health care provider. Make sure you discuss any questions you have with your health care provider. Document Revised: 04/18/2020 Document Reviewed: 02/24/2020 [employer] Patient Education 2022 [employer]. Follow Up Care 10/16/2023 15:24:36 With:Ford Bauman DO, [facility] Address: [address] [address] When:4 weeks Comments:4 WEEKS FOLLOWUP [facility] 03-08-2024 Hospital Discharge instructions Patient Education 10/16/2023 16:17:02 Steps to Quit Smoking Steps to Quit Smoking Smoking tobacco is the leading cause of preventable . It can affect almost every organ in the body. Smoking puts you and those around you at risk for developing many serious chronic diseases. Quitting smoking can be very challenging. Do not get discouraged if you are not successful the first time. Some people need to make many attempts to quit before they achieve long-term success. Do your best to stick to your quit plan, and talk with your health care provider if you have any questionsor concerns. How do I get ready to quit? When you decide to quit smoking, create a plan to help you succeed. Before you quit: Pick a date to quit. Set a date within the next 2 weeks to give you time to prepare. Write down the reasons why you are quitting. Keep this list in places where you will see it often. Tell your family, friends, and co-workers that you are quitting. Support from people you are close to can make quitting easier. Talk with your health care provider about your options for quitting smoking. Find out what treatment options are covered by your health insurance. Identify people, places, things, and activities that make you want to smoke (triggers). Avoid them. What first steps can I take to quit smoking? Throw away all cigarettes at home, at work, and in your car. Throw away smoking accessories, such as ashtrays and lighters. Clean your car. Make sure to empty the ashtray. Clean your home, including curtains and carpets. What strategies can I use to quit smoking? Talk with your health care provider about combining strategies, such as taking medicines while you are also receiving in-person counseling. Using these two strategies together makes you more likely to succeed in quitting than if you used either strategy on its own. If you are or , talk with your health care provider about finding counseling or other support strategies to quit smoking. Do not take medicine to help you quit smoking unless your health care provider tells you to. Quit right away Quit smoking completely, instead of gradually reducing how much you smoke over a period of time. Stopping smoking right away may be more successful than gradually quitting. Attend in-person counseling to help you build problem-solving skills. You are more likely to succeed in quitting if you attend counseling sessions regularly. Even short sessions of 10 minutes can be effective. Take medicine You may take medicines to help you quit smoking. Some medicines require a prescription. You can also purchase nwsn-qdg-emgmytx medicines. Medicines may have nicotine in them to replace the nicotine in cigarettes. Medicines may: Help to stop cravings. Help to relieve withdrawal symptoms. Your health care provider may recommend: Nicotine patches, gum, or lozenges. Nicotine inhalers or sprays. Non-nicotine medicine that you take by mouth. Find resources Find resources and support systems that can help you quit smoking and remain smoke-free after you quit. These resources are most helpful when you use them often. They include: Online chats with a counselor. Telephone quitlines. Printed self-help materials. Support groups or group counseling. Text messaging programs. Mobile phone apps or applications. Use apps that can help you stick to your quit plan by providing reminders, tips, and encouragement. Examples of free services include Quit Guide from the CDC and smokefree.gov What can I do to make it easier to quit? Reach out to your family and friends for support and encouragement. Call telephone quitlines, such as 1-332-HOCP-NOW, reach out to support groups, or work with a counselor for support. Ask people who smoke to avoid smoking around you. Avoid places that trigger you to smoke, such as bars, parties, or smoke-break areas at work. Spend time with people who do not smoke. Lessen the stress in your life. Stress can be a smoking trigger for some people. To lessen stress, try: ?Exercising regularly. ?Doing deep-breathing exercises. ?Doing yoga. ?Meditating. What benefits will I see if I quit smoking? Over time, you should start to see positive results, such as: Improved sense of smell and taste. Decreased coughing and sore throat. Slower heart rate. Lower blood pressure. Clearer and healthier skin. The ability to breathe more easily. Fewer sick days. Summary Quitting smoking can be very challenging. Do not get discouraged if you are not successful the first time. Some people need to make many attempts to quit before they achieve long-term success. When you decide to quit smoking, create a plan to help you succeed. Quit smoking right away, not slowly over a period of time. Find resources and support systems that can help you quit smoking and remain smoke-free after you quit. This information is not intended to replace advice given to you by your health care provider. Make sure you discuss any questions you have with your health care provider. Document Revised: 07/18/2022 Document Reviewed: 07/18/2022 [employer] Patient Education 2022 [employer]. Follow Up Care 10/12/2023 09:21:34 With:Mitul Ford ESTEBANRUKHSANA Address: [address] [place] [address]- When:4 weeks Comments:4 WEEKS FOLLOWUP [facility] [place] 02-27-2024 Hospital Discharge instructions Patient Education 10/06/2023 09:16:41 Exercising to Lose Weight Exercising to Lose Weight Getting regular exercise is important for everyone. It is especially important if you are overweight. Being overweight increases your risk of heart disease, stroke, diabetes, high blood pressure, andseveral types of cancer. Exercising, and reducing the calories you consume, can help you lose weight and improve fitness and health. Exercise can be moderate or vigorous intensity. To lose weight, most people need to do a certain amount of moderate or vigorous-intensity exercise each week. How can exercise affect me? You lose weight when you exercise enough to burn more calories than you eat. Exercise also reduces body fat and builds muscle. The more muscle you have, the more calories you burn. Exercise also: Improves mood. Reduces stress and tension. Improves your overall fitness, flexibility, and endurance. Increases bone strength. Moderate-intensity exercise Moderate-intensity exercise is any activity that gets you moving enough to burn at least three times more energy (calories) than if you were sitting. Examples of moderate exercise include: Walking a mile in 15 minutes. Doing light yard work. Biking at an easy pace. Most people should get at least 150 minutes of moderate-intensity exercise a week to maintain theirbody weight. Vigorous-intensity exercise Vigorous-intensity exercise is any activity that gets you moving enough to burn at least six times more calories than if you were sitting. When you exercise at this intensity, you should be working hard enough that you are not able to carry on a conversation. Examples of vigorous exercise include: Running. Playing a team sport, such as football, basketball, and soccer. Jumping rope. Most people should get at least 75 minutes a week of vigorous exercise to maintain their body weight. What actions can I take to lose weight? The amount of exercise you need to lose weight depends on: Your age. The type of exercise. Any health conditions you have. Your overall physical ability. Talk to your health care provider about how much exercise you need and what types of activities aresafe for you. Nutrition Make changes to your diet as told by your health care provider or diet and nutrition partner (dietitian). This may include: ?Eating fewer calories. ?Eating more protein. ?Eating less unhealthy fats. ?Eating a diet that includes fresh fruits and vegetables, whole grains, low-fat dairy products, andlean protein. ?Avoiding foods with added fat, salt, and sugar. Drink plenty of water while you exercise to prevent dehydration or heat stroke. Activity Choose an activity that you enjoy and set realistic goals. Your health care provider can help you make an exercise plan that works for you. Exercise at a moderate or vigorous intensity most days of the week. ?The intensity of exercise may vary from person to person. You can tell how intense a workout is for you by paying attention to your breathing and heartbeat. Most people will notice their breathing and heartbeat get faster with more intense exercise. Do resistance training twice each week, such as: ?Push-ups. ?Sit-ups. ?Lifting weights. ?Using resistance bands. Getting short amounts of exercise can be just as helpful as long, structured periods of exercise. If you have trouble finding time to exercise, try doing these things as part of your daily routine: ?Get up, stretch, and walk around every 30 minutes throughout the day. ?Go for a walk during your lunch break. ?Park your car farther away from your destination. ?If you take public transportation, get off one stop early and walk the rest of the way. ?Make phone calls while standing up and walking around. ?Take the stairs instead of elevators or escalators. Wear comfortable clothes and shoes with good support. Do not exercise so much that you hurt yourself, feel dizzy, or get very short of breath. Where to find more information U.S. Department of Health and Human Services: www.hhs.gov Centers for Disease Control and Prevention: www.cdc.gov Contact a health care provider: Before starting a new exercise program. If you have questions or concerns about your weight. If you have a medical problem that keeps you from exercising. Get help right away if: You have any of the following while exercising: ?Injury. ?Dizziness. ?Difficulty breathing or shortness of breath that does not go away when you stop exercising. ?Chest pain. ?Rapid heartbeat. These symptoms may represent a serious problem that is an emergency. Do not wait to see if the symptoms will go away. Get medical help right away. Call your local emergency services (911 in the [place] Do not drive yourself to the hospital. Summary Getting regular exercise is especially important if you are overweight. Being overweight increases your risk of heart disease, stroke, diabetes, high blood pressure, and several types of cancer. Losing weight happens when you burn more calories than you eat. Reducing the amount of calories you eat, and getting regular moderate or vigorous exercise each week, helps you lose weight. This information is not intended to replace advice given to you by your health care provider. Make sure you discuss any questions you have with your health care provider. Document Revised: 09/22/2021 Document Reviewed: 09/22/2021 [employer] Patient Education 2022 [employer]. 10/06/2023 09:16:31 Steps to Quit Smoking Steps to Quit Smoking Smoking tobacco is the leading cause of preventable . It can affect almost every organ in the body. Smoking puts you and those around you at risk for developing many serious chronic diseases. Quitting smoking can be very challenging. Do not get discouraged if you are not successful the first time. Some people need to make many attempts to quit before they achieve long-term success. Do your best to stick to your quit plan, and talk with your health care provider if you have any questionsor concerns. How do I get ready to quit? When you decide to quit smoking, create a plan to help you succeed. Before you quit: Pick a date to quit. Set a date within the next 2 weeks to give you time to prepare. Write down the reasons why you are quitting. Keep this list in places where you will see it often. Tell your family, friends, and co-workers that you are quitting. Support from people you are close to can make quitting easier. Talk with your health care provider about your options for quitting smoking. Find out what treatment options are covered by your health insurance. Identify people, places, things, and activities that make you want to smoke (triggers). Avoid them. What first steps can I take to quit smoking? Throw away all cigarettes at home, at work, and in your car. Throw away smoking accessories, such as ashtrays and lighters. Clean your car. Make sure to empty the ashtray. Clean your home, including curtains and carpets. What strategies can I use to quit smoking? Talk with your health care provider about combining strategies, such as taking medicines while you are also receiving in-person counseling. Using these two strategies together makes you more likely to succeed in quitting than if you used either strategy on its own. If you are or , talk with your health care provider about finding counseling or other support strategies to quit smoking. Do not take medicine to help you quit smoking unless your health care provider tells you to. Quit right away Quit smoking completely, instead of gradually reducing how much you smoke over a period of time. Stopping smoking right away may be more successful than gradually quitting. Attend in-person counseling to help you build problem-solving skills. You are more likely to succeed in quitting if you attend counseling sessions regularly. Even short sessions of 10 minutes can be effective. Take medicine You may take medicines to help you quit smoking. Some medicines require a prescription. You can also purchase sozd-fen-oeynvug medicines. Medicines may have nicotine in them to replace the nicotine in cigarettes. Medicines may: Help to stop cravings. Help to relieve withdrawal symptoms. Your health care provider may recommend: Nicotine patches, gum, or lozenges. Nicotine inhalers or sprays. Non-nicotine medicine that you take by mouth. Find resources Find resources and support systems that can help you quit smoking and remain smoke-free after you quit. These resources are most helpful when you use them often. They include: Online chats with a counselor. Telephone quitlines. Printed self-help materials. Support groups or group counseling. Text messaging programs. Mobile phone apps or applications. Use apps that can help you stick to your quit plan by providing reminders, tips, and encouragement. Examples of free services include Quit Guide from the CDC and smokefree.gov What can I do to make it easier to quit? Reach out to your family and friends for support and encouragement. Call telephone quitlines, such as 5-156-SMFY-NOW, reach out to support groups, or work with a counselor for support. Ask people who smoke to avoid smoking around you. Avoid places that trigger you to smoke, such as bars, parties, or smoke-break areas at work. Spend time with people who do not smoke. Lessen the stress in your life. Stress can be a smoking trigger for some people. To lessen stress, try: ?Exercising regularly. ?Doing deep-breathing exercises. ?Doing yoga. ?Meditating. What benefits will I see if I quit smoking? Over time, you should start to see positive results, such as: Improved sense of smell and taste. Decreased coughing and sore throat. Slower heart rate. Lower blood pressure. Clearer and healthier skin. The ability to breathe more easily. Fewer sick days. Summary Quitting smoking can be very challenging. Do not get discouraged if you are not successful the first time. Some people need to make many attempts to quit before they achieve long-term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 above the level of your heart while sitting or lying down. Rest as directed. Do not exercise until your health care provider approves. Do not take baths, swim, or use a hot tub until your health care provider approves. Do not put ice on your burn. This can cause more damage. Try cooling the burn with: ?Cool water. ?A cool, wet, clean cloth (cool compress). Keep all follow-up visits as directed. This is important. Contact a health care provider if: Your symptoms do not improve with treatment. Your pain is not relieved with medicine. You have more redness, swelling, or pain around your wound. You have more fluid or blood coming from your wound. You have yellow or green fluid, pus, or a bad smell coming from your wound. Your wound feels warm to the touch. You have a fever. Get help right away if: You develop red streaks near the wound. You develop severe pain. Summary A second-degree burn is a serious injury that affects the first two layers of skin. Clean your wound 2 3 times a day or as often as directed. Check your wound every day for signs of infection. Do not scratch or pick at your wound, break blisters, peel skin, or put ice on your burn. This information is not intended to replace advice given to you by your health care provider. Make sure you discuss any questions you have with your health care provider. Document Released: 12/29/2011 Document Revised: 07/09/2018 Document Reviewed: 07/07/2017 [employer] Patient Education 2020 [employer]. 02/14/2022 14:20:29 Burn Care, Adult Burn Care, Adult A burn is an injury to the skin or the tissues under the skin. There are three types of beckett: First degree. These beckett may cause the skin to be red and slightly swollen. Second degree. These beckett are very painful and cause the skin to be very red. The skin may also leak fluid, look shiny, and develop blisters. Third degree. These beckett cause permanent damage. They either turn the skin white or black and makeit look charred, dry, and leathery. Taking care of your burn properly can help to prevent pain and infection. It can also help the burnto heal more quickly. What are the risks? Complications from beckett include: Damage to the skin. Reduced blood flow near the injury. tissue. Scarring. Problems with movement, if the burn happened near a joint or on the hands or feet. Severe beckett can lead to problems that affect the whole body, such as: Fluid loss. Less blood circulating in the body. Inability to maintain a normal core body temperature (thermoregulation). Infection. Shock. Problems breathing. How to care for a first-degree burn Right after a burn: Rinse or soak the burn under cool water until the pain stops. Do not put ice on your burn. This cancause more damage. Lightly cover the burn with a sterile cloth (dressing). Burn care Follow instructions from your health care provider about: ?How to clean and take care of the burn. ?When to change and remove the dressing. Check your burn every day for signs of infection. Check for: ?More redness, swelling, or pain. ?Warmth. ?Pus or a bad smell. Medicine Take sbrl-gdb-tkeuffa and prescription medicines only as told by your health care provider. If you were prescribed antibiotic medicine, take or apply it as told by your health care provider. Do not stop using the antibiotic even if your condition improves. General instructions To prevent infection, do not put butter, oil, or other home remedies on your burn. Do not rub your burn, even when you are cleaning it. Protect your burn from the sun. How to care for a second-degree burn Right after a burn: Rinse or soak the burn under cool water. Do this for several minutes. Do not put ice on your burn. This can cause more damage. Lightly cover the burn with a sterile cloth (dressing). Burn care Raise (elevate) the injured area above the level of your heart while sitting or lying down. Follow instructions from your health care provider about: ?How to clean and take care of the burn. ?When to change and remove the dressing. Check your burn every day for signs of infection. Check for: ?More redness, swelling, or pain. ?Warmth. ?Pus or a bad smell. Medicine Take hrlx-jcm-ajxyvsl and prescription medicines only as told by your health care provider. If you were prescribed antibiotic medicine, take or apply it as told by your health care provider. Do not stop using the antibiotic even if your condition improves. General instructions To prevent infection: ?Do not put butter, oil, or other home remedies on the burn. ?Do not scratch or pick at the burn. ?Do not break any blisters. ?Do not peel skin. Do not rub your burn, even when you are cleaning it. Protect your burn from the sun. How to care for a third-degree burn Right after a burn: Lightly cover the burn with gauze. Seek immediate medical attention. Burn care Raise (elevate) the injured area above the level of your heart while sitting or lying down. Drink enough fluid to keep your urine clear or pale yellow. Rest as told by your health care provider. Do not participate in sports or other physical activities until your health care provider approves. Follow instructions from your health care provider about: ?How to clean and take care of the burn. ?When to change and remove the dressing. Check your burn every day for signs of infection. Check for: ?More redness, swelling, or pain. ?Warmth. ?Pus or a bad smell. Medicine Take exrm-lgq-sirsxor and prescription medicines only as told by your health care provider. If you were prescribed antibiotic medicine, take or apply it as told by your health care provider. Do not stop using the antibiotic even if your condition improves. General instructions To prevent infection: ?Do not put butter, oil, or other home remedies on the burn. ?Do not scratch or pick at the burn. ?Do not break any blisters. ?Do not peel skin. ?Do not rub your burn, even when you are cleaning it. Protect your burn from the sun. Keep all follow-up visits as told by your health care provider. This is important. Contact a health care provider if: Your condition does not improve. Your condition gets worse. You have a fever. Your burn changes in appearance or develops black or red spots. Your burn feels warm to the touch. Your pain is not controlled with medicine. Get help right away if: You have redness, swelling, or pain at the site of the burn. You have fluid, blood, or pus coming from your burn. You have red streaks near the burn. You have severe pain. This information is not intended to replace advice given to you by your health care provider. Make sure you discuss any questions you have with your health care provider. Document Released: 07/27/2006 Document Revised: 07/09/2018 Document Reviewed: 01/13/2017 [employer] Patient Education 2020 [employer]. Follow Up Care 02/12/2022 11:26:13 With:KATE GARCIA CNP Address: [address] [place] [address] When:1 to 2 weeks [facility] [place] 05-18-2022 Evaluation + Plan noteExtracted from: Title:ED Note Author:Nirav BILLY, Andrew Pradhan te:12/25/21 Facial cellulitis (L03.211: Cellulitis of face) Orders: cephalexin, 500 mg = 1 cap(s), Oral, QID, X 7 day(s), # 28 cap(s), Refills(s) 0, Pharmacy: [facility], 183, cm, 12/25/21 8:14:00 EDT, Height/Length Dosing, 125, kg, 12/25/21 8:14:00 EDT, Weight Dosing [facility]05-18[facility]2022 Hospital Discharge instructions Patient Education 12/25/2021 08:36:27 Cellulitis, Adult, Hxtl-su-Fvdw Cellulitis, Adult Cellulitis is a skin infection. The infected area is often warm, red, swollen, and sore. It occurs most often in the arms and lower legs. It is very important to get treated for this condition. What are the causes? This condition is caused by bacteria. The bacteria enter through a break in the skin, such as a cut, burn, insect bite, open sore, or crack. What increases the risk? This condition is more likely to occur in people who: Have a weak body defense system (immune system). Have open cuts, beckett, bites, or scrapes on the skin. Are older than 60 years of age. Have a blood sugar problem (diabetes). Have a long-lasting (chronic) liver disease (cirrhosis) or kidney disease. Are very overweight (obese). Have a skin problem, such as: ?Itchy rash (eczema). ?Slow movement of blood in the veins (venous stasis). ?Fluid buildup below the skin (edema). Have been treated with high-energy rays (radiation). Use IV drugs. What are the signs or symptoms? Symptoms of this condition include: Skin that is: ?Red. ?Streaking. ?Spotting. ?Swollen. ?Sore or painful when you touch it. ?Warm. A fever. Chills. Blisters. How is this diagnosed? This condition is diagnosed based on: Medical history. Physical exam. Blood tests. Imaging tests. How is this treated? Treatment for this condition may include: Medicines to treat infections or allergies. Home care, such as: ?Rest. ?Placing cold or warm cloths (compresses) on the skin. Hospital care, if the condition is very bad. Follow these instructions at home: Medicines Take svzj-ima-ubcykeu and prescription medicines only as told by your doctor. If you were prescribed an antibiotic medicine, take it as told by your doctor. Do not stop taking it even if you start to feel better. General instructions Drink enough fluid to keep your pee (urine) pale yellow. Do not touch or rub the infected area. Raise (elevate) the infected area above the level of your heart while you are sitting or lying down. Place cold or warm cloths on the area as told by your doctor. Keep all follow-up visits as told by your doctor. This is important. Contact a doctor if: You have a fever. You do not start to get better after 1 2 days of treatment. Your bone or joint under the infected area starts to hurt after the skin has healed. Your infection comes back. This can happen in the same area or another area. You have a swollen bump in the area. You have new symptoms. You feel ill and have muscle aches and pains. Get help right away if: Your symptoms get worse. You feel very sleepy. You throw up (vomit) or have watery poop (diarrhea) for a long time. You see red streaks coming from the area. Your red area gets larger. Your red area turns dark in color. These symptoms may represent a serious problem that is an emergency. Do not wait to see if the symptoms will go away. Get medical help right away. Call your local emergency services (911 in the [place] Do not drive yourself to the hospital. Summary Cellulitis is a skin infection. The area is often warm, red, swollen, and sore. This condition is treated with medicines, rest, and cold and warm cloths. Take all medicines only as told by your doctor. Tell your doctor if symptoms do not start to get better after 1 2 days of treatment. This information is not intended to replace advice given to you by your health care provider. Make sure you discuss any questions you have with your health care provider. Document Released: 01/12/2009 Document Revised: 12/16/2018 Document Reviewed: 12/16/2018 [employer] Patient Education 2020 [employer]. Follow Up Care 12/25/2021 08:09:26 With:Nino Turner Address: [address] [place], [place] [address]STE. [place], [facility]57- Business (1) When:12/28/2021 08:29:01 Comments:Follow-up with your primary care provider in 3 to 5 days. The cellulitis should not increase in size, and if it does please report back to emergency department for further evaluation. If symptoms worsen, new symptoms arise, or symptoms not improve please report back to emergency department immediately. Take antibiotic as prescribed. [facility] Future App[facility]ments Appointment Date:02/24/2022 01:00:00 PM Scheduled Provider:KATE GARCIA CNP Location:[facility] Appointment Type:[facility] Evaluation + Plan note Future Appointments Appointment Date:11/17/2023 05:40:00 PM Scheduled Provider:Ford Bauman DO Location:[facility] Appointment Type:[facility] Evaluation + Plan note Future Appointments Appointment Date:01/12/2024 07:40:00 AM Scheduled Provider:Ford Bauman DO Location:[facility] Appointment Type:[facility] Evaluation + Plan note Future Appointments Appointment Date:01/28/2024 07:40:00 AM Scheduled Provider:Ford Bauman DO Location:[facility] Appointment Type:[facility] Evaluation + Plan note Future Appointments Appointment Date:04/25/2024 07:40:00 AM Scheduled Provider:Ford Bauman DO Location:[facility] Appointment Type:[facility] Hospital course Narrative No data available for this section [facility] No data available for this section [facility] Progress note No data available for this section [facility] Summary Purpose Family History No Family History Records Found No data available for this section No data available for this section No data available for this section No data available for this section No data available for this section No data available for this section No data available for this section No Family History Records FoundNo Family History Records FoundNo Family History Records FoundNo Family History Records FoundNo Family History Records FoundNo Family History Records FoundNo Family History Records FoundNo Family History Records FoundNo Family History Records FoundNo Family History Records FoundNo Family History Records FoundNo Family History Records FoundNo Family History Records FoundNo Family History Records FoundNo Family History Records FoundNo Family History Records FoundNo Family History Records Found No data available for this section No Family History Records FoundNo Family History Records FoundNo Family History Records Found No data available for this section No Family History Records Found No data available for this section No data available for this section No Family History Records Found No data available for this section No data available for this section No Family History Records Found Advance Directives No Advanced Directives Records FoundNo Advanced Directives Records FoundNo Advanced Directives Records FoundNo Advanced Directives Records FoundNo Advanced Directives Records FoundNo Advanced Directives Records FoundNo Advanced Directives Records FoundNo Advanced Directives Records FoundNo Advanced Directives Records FoundNo Advanced Directives Records FoundNo Advanced Directives Records FoundNo Advanced Directives Records FoundNo Advanced Directives Records FoundNo Advanced Directives Records FoundNo Advanced Directives Records FoundNo Advanced Directives Records FoundNo Advanced Directives Records FoundNo Advanced Directives Records FoundNo Advanced Directives Records FoundNo Advanced Directives Records FoundNo Advanced Directives Records FoundNo Advanced Directives Records FoundNo Advanced Directives Records FoundNo Advanced Directives Records Found Additional Source Comments Care Team (unrecognized sect ion and content) Personnel Name: RADHA TERESAKATE Johnson Address: [address] [place] [address] Personnel Name: RADHA TERESAKATE Jhonson Address: [address] [place] [address] Personnel Name: RADHA TERESALIBORIOMARQUIS Ornelas Address: Address: [address] [place] [address] [place] Personnel Name: FARIHA JAY Personnel Name: Ankur Faria DO Address: Address: [address] [place] [address] Personnel Name: Ankur Faria DO Address: Address: [address] [place] [address] Personnel Name: Ankur Faria DO Address: Address: [address] [facility] [address] [place] [address] Personnel Name: Ford Bauman DO Address: Address: [address] [place] [address]- [place] Personnel Name: Ford Bauman DO Address: Address: [address] [place] [address]- [place] Personnel Name: Ford Bauman DO Address: Address: [address] [place] [address]- [place] Personnel Name: Ford Bauman DO Address: Address: [address] [place] [address]- [place] Personnel Name: Ford Bauman DO Address: Address: [address] [place] [address]- [place] Personnel Name: Ford Bauman DO Address: Address: [address] [place] [address]- [place] Personnel Name: Ford Bauman DO Address: Address: [address] [place] [address]- [place] Personnel Name: Ford Bauman DO Address: Address: [address] [place] [address]- [place] Personnel Name: Ford Bauman DO Address: Address: [address] [place] [address]- [place] (unrecognized sect ion and content) No Status Records FoundNo Status Records FoundNo Status Records FoundNo Status Records FoundNo Status Records FoundNo Status Records FoundNo Status Records FoundNo Status Records FoundNo Status Records FoundNo Status Records FoundNo Status Records FoundNo Status Records FoundNo Status Records FoundNo Status Records FoundNo Status Records FoundNo Status Records FoundNo Status Records FoundNo Status Records FoundNo Status Records FoundNo Status Records FoundNo Status Records FoundNo Status Records FoundNo Status Records FoundNo Status Records Found INFORMATION SOURCE (unrecogn ized section and content) DATE CREATED AUTHOR 09/12/2022 [facility] DATE CREATED AUTHOR AUTHOR'S ORGANIZ ATION 01/07/2024 [facility] DATE CREATED AUTHOR AUTHOR'S ORGANIZ ATION 01/08/2024 [facility] DATE CREATED AUTHOR AUTHOR'S ORGANIZ ATION 01/10/2024 [facility] DATE CREATED AUTHOR AUTHOR'S ORGANIZ ATION 01/11/2024 [facility] DATE CREATED AUTHOR AUTHOR'S ORGANIZ ATION 01/27/2024 [facility] DATE CREATED AUTHOR AUTHOR'S SHLOMO SAINZ 04/26/2024 [facility] FOR RECORDS PERTAINING TO PATIENTS WHO ARE OR HAVE BEEN ENROLLED IN A CHEMICAL DEPENDENCY/SUBSTANCEABUSE PROGRAM, SOME INFORMATION MAY BE OMITTED. This clinical summary was aggregated from multiple sources. Caution should be exercised in using it in the provision of clinical care. This summary normalizes information from multiple sources, and as a consequence, information in this document may materially change the coding, format and clinical context of patient data. In addition, data may be omitted in some cases. CLINICAL DECISIONS SHOULD BE BASED ON THE PRIMARY CLINICAL RECORDS. [facility]. provides no warranty or guarantee of the accuracy or completeness of information in this document.
--- NOTE | 2024-05-20 00:22 | XR_ITS ---
The [address] [address] Patient Name: MAO ESCOBEDO MRN: [id number] date: 1975 Sex: M Assigned Patient Location: ER Current Patient Location: ED.MAIN Accession/Order Number: [id number] Exam Date: 05/20/2024 00:30 Report Date: 05/20/2024 03:18 At the request of: SHOBHA ALCALA Procedure: XR chest 1V EXAM: XR chest 1V HISTORY: Fever, cough COMPARISON: None. TECHNIQUE: One view of the chest was obtained. FINDINGS: The cardiac silhouette is normal in size. There are patchy opacities in the lung bases. There is no significant pneumothorax or pleural effusion. No acute osseous abnormality is seen. XR/XR chest 1V IMPRESSION: 1. Patchy bibasilar opacities are concerning for aspiration changes and/or pneumonia. Electronically authenticated by: Rene JUNE Date: 05/20/2024 03:18
--- NOTE | 2024-05-20 00:23 | ED.GENADUL1 ---
HPI HPI - General Adult General Chief complaint: Fever Stated complaint: FEVER Time Seen by Provider: 05/19/24 23:58 Source: patient Mode of arrival: walk-in Limitations: no limitations History of Present Illness HPI narrative: 48-year-old male presents to the emergency department for body aches and fever and cough. He checked a forehead temperature at home and his states it was 103 degrees, immediately before coming here. It was 99.8 orally when he got here. He has had bodyaches and a slight cough. A family member had COVID but it was about a month ago. He does not complain of abdominal pain or vomiting or diarrhea. Related Data Home Medications ?Medication ?Instructions ?Recorded ?Confirmed phentermine 37.5 mg tablet 37.5 mg PO DAILY 05/20/24 05/20/24 varenicline 1 mg tablet mg DAILY 05/20/24 Previous Rx's ?Medication ?Instructions ?Recorded azithromycin 250 mg tablet See Rx Instructions PO .COMPLEX #6 05/20/24 (Zithromax Z-Kris) tabs Allergies Allergy/AdvReac Type Severity Reaction Status Date / Time No Known Drug Allergies Allergy Verified 05/20/24 00:00 Opioid HPI Opioid Management Most Recent Opioid Data: Last Pain Scale 9 06/02/23 21:10 06/02/23 Review of Systems ROS Narrative A ten point review of systems is negative except as noted above. PFSH PFSH Social History Smoking status: Current every day smoker Little interest or pleasure in doing things: not at all Feeling down, depressed, or hopeless: not at all Exam Narrative Exam Narrative: Nurses note and vital signs reviewed and patient is not hypoxic. General: The patient appears well and in no apparent distress. Patient is resting comfortably on cart. Skin: Warm, dry, no pallor noted. There is no rash noted. Head: Normocephalic, atraumatic Eye: Normal conjunctiva, no drainage Ears, Nose, Mouth, and Throat: oral mucosa is moist. Nares patent. Cardiovascular: Regular Rate and Rhythm Respiratory: Patient is in no distress, no accessory muscle use, lungs are clear to auscultation, no wheezing, rales or rhonchi Back: non-tender GI: Soft and nontender Musculoskeletal: The patient has no evidence of calf tenderness, no pitting edema, symmetrical pulses noted bilaterally Neurological: Awake and alert Psychiatric: Cooperative Constitutional Vital Signs, click to edit/add: Last Vital Signs Temp 99.8 F 05/20/24 00:02 Pulse 98 H 05/20/24 01:20 Resp 20 05/20/24 01:20 BP 139/73 05/20/24 01:20 Pulse Ox 97 05/20/24 01:20 O2 Del Method Room Air 05/20/24 00:02 Course Vital Signs Vital signs: Vital Signs Temperature 99.8 F 05/20/24 00:02 Pulse Rate 104 H 05/20/24 00:02 Respiratory Rate 20 05/20/24 00:02 Blood Pressure 137/80 05/20/24 00:02 Pulse Oximetry 97 05/20/24 00:02 Oxygen Delivery Method Room Air 05/20/24 00:02 Temperature 99.8 F 05/20/24 00:02 Pulse Rate 98 H 05/20/24 01:20 Respiratory Rate 20 05/20/24 01:20 Blood Pressure 139/73 05/20/24 01:20 Pulse Oximetry 97 05/20/24 01:20 Oxygen Delivery Method Room Air 05/20/24 00:02 Medical Decision Making MDM Narrative Medical decision making narrative: Family requested to be discharged home. We are still awaiting x-ray report. I suspect that he may have pneumonia and he is prescribed Zithromax. COVID and influenza were negative. Differential Diagnosis Differential Diagnosis: Pneumonia, COVID, influenza Lab Data Lab results reviewed: Yes I reviewed the patient's lab results Labs: Lab Results 05/20/24 Range/Units 00:20 Influenza Type A Ag Negative Influenza Type B Ag Negative SARS-CoV-2 Ag (CV2AG) Negative (NEGATIVE) Imaging Data Chest x-ray: My impression: Possible right lower lobe pneumonia Discharge Plan Discharge Chief Complaint: Fever Clinical Impression: Pneumonia Patient Disposition: Home, Self-Care Time of Disposition Decision: 03:16 Condition: Good Mode of Transportation: Private Vehicle Prescriptions / Home Meds: New azithromycin [Zithromax Z-Kris] 250 mg tablet See Rx Instructions .ROUTE .COMPLEX Qty: 6 0RF Rx Instructions: For 250 mg dose pack: take 500 mg today (day 1), then 250 mg for 4 days (days 2-5) No Action phentermine 37.5 mg tablet 37.5 mg PO DAILY varenicline 1 mg tablet DAILY Print Language: Hebrew Instructions: Community Acquired Pneumonia (ED) Referrals: Physician,Non-Staff, MD [Primary Care Provider] - 1 week
[2024-05-20 00:42] LABS: Influenza Virus A Antigen Negative; Influenza Virus B Antigen Negative; Internal Control Within Normal Limits; SARS-CoV-2 Ag NEGATIVE (NEGATIVE)
[2024-05-20 01:20] VITALS: BP 139/73; PULSE 98; O2SAT 97
[2024-05-20] MEDS: IBUPROFEN 400 MG TABLET 800 MG PO (01:30)
[2024-05-20] MEDS: AZITHROMYCIN 250 MG TABLET 500 MG PO (03:31)
== END 2024-05-20 03:51 | disposition home or self-care (01) ==
PROVIDERS: Emergency Provider Emergency Medicine
DX: J18.9 Pneumonia, unspecified organism (principal); Z20.822 Contact with and (suspected) exposure to COVID-19; F17.200 Nicotine dependence, unspecified, uncomplicated
CPT/HCPCS: 71045; 87804; 87811; 99284

== ENCOUNTER 2024-05-31 19:37 | Emergency (ER) | payer OTHER, SELFPAY ==
--- OUTSIDE RECORDS SUMMARY | 2024-05-31 19:54 | XMS_ITS | CCD ---
Author Organization [facility] Care Team Providers Care Claim Processing Specialist Name Role Phone ANDRÉS CHRISTOPHER Primary Care Physician [phone] KATE GARCIA Primary Care Physician Jose Elias Oliver Jr Admitting Unavailable Kate Garcia Primary Care Unavailable Jose Elias Oliver Jr Attending Unavailable Andrés Christopher Primary Care Unavailable Jin Lorenzo Attending Unavailable Jin Lorenzo Admitting Unavailable [facility] Primary Care Physician UnavailAnkur Moore Primary Care Physician Unavail able Ford Bauman Primary Care Physician [phone] Ivette Ash Consulting Unavailab Ivette Parra Attending [...] Medication Allergies] Propensity to adverse reactions (disorder) [facility] Repository Medications Current Medications Medication Drug Class(es) Dates Sig (Normalized) Sig (Original) acetaminophen 325 mg oral tablet (6 sources) Start: 01-07-2024 take 2 tablets by mouth every six hours acetaminophen 325 mg Tab 650 mg = 2 tab(s), Oral, q6hr, Refills(s) 0 Start Date: 01/07/24 Status: Ordered acetaminophen 325 mg / HYDROcodone bitartrate 5 mg oral tablet (2 sources) Opioid Agonist Start: 06-04-2022 [place] 325 mg-5 mg oral tablet 1 tab(s), Oral, q6hr for pain, 12 tab(s), Refill(s) 0 Start Date: 06/04/22 Status: Ordered Start: 02-14-2022 End: 02-21-2022 [place] 325 mg-5 mg oral table t 1 tab(s), Oral, q8hr for pain for 7 day(s), 21 tab(s), Refill(s) 0, [facility], 183, cm, 02/14/22 13:33:00 EDT, Height/Length [...] day(s), # 6 tab(s), Refills(s) 0, Pharmacy: [facility], 182, cm, 01/06/24 8:12:00 EDT, Height/Length Dosing, 109, kg, 01/06/24 8:12:00 EDT, Weight Dosing Start Date: 01/08/24 Stop Date: 01/11/24 Status: Ordered Start: 12-30-2022 End: 01-06-2023 Augmentin 875 mg-125 mg Tab 1 tab(s), Oral, BID for 7 day(s), 14 tab(s), Refill(s) 0, [facility], 182, cm, 12/30/22 16:19:00 EDT, Height/Length [...] day(s), # 28 tab(s), Refills(s) 0, Pharmacy: [facility], 183, cm, 02/14/22 13:33:00 EDT, Height/Length Dosing, 124.6, kg, 02/14/22 13:33:00 EDT, Weight Dosing Start Date: 02/14/22 Stop Date: 02/21/22 Status: Ordered Start: 12-25-2021 End: 01-01-2022 take 1 capsule by mouth four times daily Keflex 500 mg Cap 500 mg = 1 cap(s), Oral, QID, X 7 day(s), # 28 cap(s), Refills(s) 0, Pharmacy: [facility], 183, cm, 12/25/21 8:14:00 EDT, Height/Length [...] spasm, # 30 tab(s), Refills(s) 1, Pharmacy: [facility], 182, cm, 12/17/23 16:50:00 EDT, Height/Length Dosing, 109.7, kg, 12/17/23 16:50:00 EDT, Weight Dosing Start Date: 12/17/23 Status: Ordered docusate sodium 100 mg oral capsule (4 sources) Start: 01-08-2024 End: 01-18-2024 take 1 capsule by mouth twice daily Colace 100 mg Cap 100 mg = 1 cap(s), Oral, BID, X 10 day(s), # 20 cap(s), Refills(s) 0, Pharmacy: [facility], 182, cm, 01/06/24 8:12:00 EDT, Height/Length [...] day(s), # 12 tab(s), Refills(s) 0, Pharmacy: [facility], 182, cm, 01/06/24 8:12:00 EDT, Height/Length [...] breakfast, # 30 tab(s), Refills(s) 2, Pharmacy: [facility], 182, cm, 01/28/24 7:46:00 EDT, Height/Length Dosing, 104.4, kg, 01/28/24 7:46:00 EDT, Weight Dosing Start Date: 01/28/24 Status: Ordered Start: 12-17-2023 take 1 tablet by master once daily before breakfast Adipex-P 37.5 mg Tab 37.5 mg = 1 tab(s), Oral, Daily, before breakfast, # 30 tab(s), Refills(s) 0, Pharmacy: [facility], 182, cm, 12/17/23 16:50:00 EDT, Height/Length Dosing, 109.7, kg, 12/17/23 16:50:00 EDT, Weight Dosing Start Date: 12/17/23 Status: Ordered Start: 11-17-2023 take 1 tablet by master once daily before breakfast Adipex-P 37.5 mg Tab 37.5 mg = 1 tab(s), Oral, Daily, before breakfast, # 30 tab(s), Refills(s) 0, Pharmacy: [facility], 182, cm, 11/17/23 17:52:00 EDT, Height/Length Dosing, 117.1, kg, 11/17/23 17:52:00 EDT, Weight Dosing Start Date: 11/17/23 Status: Ordered Start: 10-16-2023 take 1 tablet by master once daily before breakfast Adipex-P 37.5 mg Tab 37.5 mg = 1 tab(s), Oral, Daily, before breakfast, # 30 tab(s), Refills(s) 0, Pharmacy: [facility], 182, cm, 10/16/23 14:53:00 EST, Height/Length Dosing, 124.3, kg, 10/16/23 14:53:00 EST, Weight Dosing Start Date: 10/16/23 Status: Ordered polymyxin b 30103 unt/ml / trimethoprim 1 mg/ml ophthalmic solution (1 source) Dihydrofolate Reductase Inhibitor Antibacterial, Polymyxin-class Antibacterial Start: 06-05-2023 End: 06-12-2023 Polytrim 10 mL Soln-Opth 1 drop(s), OPTH, q6hr for 7 day(s), 10 mL, Refill(s) 0, [facility], 182, cm, 06/05/23 1:53:00 EDT, Height/Length Dosing, 122.4, kg, 06/05/23 1:53:00 EDT, Weight Dosing Start Date: 06/05/23 Stop Date: 06/12/23 Status: Ordered sennosides, mcc 8.6 mg oral tablet (4 sources) Start: 01-08-2024 End: 01-18-2024 take 1 tablet by mouth once daily at bedtime senna 8.6 mg Tab 8.6 mg = 1 tab(s), Oral, Once a day (at bedtime), X 10 day(s), # 10 tab(s), Refills(s) 0, Pharmacy: [facility], 182, cm, 01/06/24 8:12:00 EDT, Height/Length [...] activity, # 20 tab(s), Refills(s) 1, Pharmacy: [facility], 182, cm, 04/07/24 15:53:00 EDT, Height/Length Dosing, 110.2, kg, 04/07/24 15:53:00 EDT, Weight Dosing Start Date: 04/07/24 Status: Ordered silver sulfADIAZINE 10 mg/ml topical cream (3 sources) Sulfonamide Antibacterial Start: 02-14-2022 Silvadene 1% Cream 1 jess, Topical, BID, 50 gram, Refill(s) 0, [facility], 183, cm, 02/14/22 13:33:00 EDT, Height/Length [...] PM EST With: Ford Bauman DO Where: [facility] [address] [place] [address]- You Need to Schedule the Following Appointments Follow Up with Ford Bauman DO, RUKHSANA When: Within 6 weeks Comments: 6 WEEKS FOLLOWUP Where: [address] [place] [address]- Medications What How Much When Why Instructions New varenicline (Chantix 1 mg oral tablet) 1 Tablets By Mouth 2 times a day Refills: 5 1/ 2 tab for first 2 weeks, with a full glass of water Pickup at [facility] Unchanged acetaminophen (acetaminophen 325 mg Tab) [...] 1 hour before sexual activity Pharmacy Information [facility]: [address] [id number] [phone] Medications and Immunizations Administered Not Given influenza [...] for choosing us for your care. Normal [facility] Medicine Office/Clini c Noteon 04-25-2024 Family Medicine [...] any side effects. Notes improvement. Flu: declines [place]: cologuard was ordered 11/18/23 History of Present [...] water, # 30 tab(s), Refills(s) 5, Pharmacy: [facility], 182, cm, 04/25/24 7:35:00 EDT, Height/Length Dosing, 113.9, kg, 04/25/24 7:35:00 EDT, Weight Dosing Follow-up With When Contact Information Link DO, Ford C, RUKHSANA Within 6 weeks [address] [place] [id number]- Additional Instructions: 6 WEEKS FOLLOWUP Problem List/Past [...] 2 refill (more content not included)... Normal [facility] Comment on above: Result Comment: Elec tronically Signed By: Ford Bauman DO\\.br\\Date and Time Signed: 04/25/24 08:02 EDT Family [...] any side effects. Notes improvement. Flu: declines [place]: cologuard was ordered 11/18/23 Review of Systems [...] water, # 30 tab(s), Refills(s) 5, Pharmacy: [facility], 182, cm, 04/25/24 7:35:00 EDT, Height/Length Dosing, 113.9, kg, 04/25/24 7:35:00 EDT, Weight Dosing Follow-up With When Contact Information Link Ford ESTEBAN, RUKHSANA Within 6 weeks [address] [place] [address]- Additional Instructions: 6 WEEKS FOLLOWUP Problem List/Past [...] diphtheria/pertussis, acel/tetanus adult 02/25/2019 Recorded Normal [facility] Comment on above: Result Comment: Elec tronically Signed By: Ford Bauman DO\\.br\\Date and Time Signed: 04/25/24 08:01 EDT Family [...] and was prescribed Viagra, which was helpful. [place]: cologuard ordered 11/2023 History of Present Illness [...] activity, # 20 tab(s), Refills(s) 1, Pharmacy: [facility], 182, cm, 04/07/24 15:53:00 EDT, Height/Length [...] mg= 1 (more content not included)... Normal [facility] Comment on above: Result Comment: Elec tronically Signed By: Ford Bauman DO\\.br\\Date and Time Signed: 04/08/24 09:50 EDT Ambulatory [...] AM EDT With: Ford Bauman DO Where: [facility] [address] [place] [address]- Medications What How Much When Why Instructions New sildenafil (sildenafil 25 mg Tab) 1 Tablets By Mouth Every day as needed for for erectile dysfunction Erectile dysfunction Refills: 1 1 hour before sexual activity Pickup at [facility] Unchanged acetaminophen (acetaminophen 325 mg Tab) 2 Tablets By Mouth Every 6 hours Unchanged cyclobenzaprine (cyclobenzaprine 10 mg Tab) 1 Tablets By Mouth 3 times a day as needed for for spasm Unchanged phentermine (Adipex-P 37.5 mg Tab) 1 Tablets By Mouth Every day Morbid obesity before breakfast Pharmacy Information [facility]: [address] [id number] [phone] Allergies No Known Allergies No Known Medication [...] for choosing us for your care. Normal [facility] IntraOperative Documentson 0 01-29-2024 IntraOperative Documents [id number]# 1.00TIFF Normal [facility] Ambulatory Visit Summaryon 0 - Ambulatory Visit [...] AM EDT With: Ford Bauman DO Where: [facility] Medicine Oscar Normal [facility] Medicine Office/Clini c Noteon 01-28-2024 Family Medicine Office/Clinic Note Chief Complaint Weight Management HPI Staff Patent here for weight management f/u Weight management Wt at LV: 108.4kg 239lbs Wt today: 104.4kg 229.68lbs Sleeping well:Yes, 6-8 hours Chest pain:No Tremors:No Headaches:No Heart fluttering:No Blurred Vision:No [place]: has cologuard History of Present Illness Patient [...] breakfast, # 30 tab(s), Refills(s) 2, Pharmacy: [facility], 182, cm, 01/28/24 7:46:00 EDT, Height/Length [...] DO, FAM Within 3 months [address] [place] [id number]- Additional Instructions: Controlled Medication Followup Problem List/Past [...] Risk, 1 (more content not included)... Normal [facility] Comment on above: Result Comment: Elec tronically Signed By: Ford Bauman DO\\.br\\Date and Time Signed: 01/28/24 08:02 EDT Trauma Office/Clinic Noteon 01-27-2024 Trauma Office/Clinic Note HPI Staff Mao is a 48 y.o. male here for alessandro drain Patient presented to [facility] ER on 01/06/24 with abdominal pain and [...] diphtheria/pertussis, acel/tetanus adult 02/25/2019 Recorded Normal [facility] Comment on above: Result Comment: Elec tronically Signed By: Gabbi Salinas PA-C\\.br\\Date and Time Signed: 01/27/24 09:41 EDT\\.br\\Electronically Co-Signed By: Justin Garvey DO\\.br\\Date and Time Co-Signed: 01/27/24 14:15 EDT Family Medicine Office/Clini c Noteon 01-26-2024 Family Medicine Office/Clinic Note HPI Staff Patient here for hospitalization f/u with TCM TCM: Hospital: [facility] Admission date: 01/06/24 Discharge date: 01/08/24 Symptoms [...] pain:No Tremors:No Headaches:No Heart fluttering:No Blurred Vision:No [place]: cologuard justs needs to complete it Flu: declines [id number] History of Present Illness Patient presents today for hospital followup. Hospital location: [facility] Admission Date: 01/06/2024 Discharge Date: 01/08/2024 Reviewed Records: ER summary, discharge summary, consultation notes, procedure note, history and physical Summary: Patient presented to [facility] ER on 01/06/2024 due to ongoing pain [...] Your BM (more content not included)... Normal [facility] Comment on above: Result Comment: Elec tronically Signed By: Ford Bauman DO\\.br\\Date and Time Signed: 01/26/24 08:39 EDT Reminderson 01-26-2024 Reminders - From: Zeina Baron RN To: Zeina Baron RN; Billy ALAS, Debbie Agarwal RN, Abby Ellsworth; [facility] Meat [employer]ocker; Sent: 01/26/2024 11:43:42 EDT Show up: 01/26/2024 11:43:00 EDT Subject: OV Due Date/Time: 01/28/2024 07:40:00 EDT Reminder/Recall [facility] Population [facility] 01-19-20 24 Population Health Case Information Case Priority: None Programs: -- Referral Source: Agricultural Adviser Referral Reason: Care coordination Case Type: Transition [...] summary note. Created By: Lea ALAS, Ofelia [facility] Provider Letteron 01-18-2024 Provider Letter January 18, 2024 MAO ESCOBEDO [address] [place] [address] : 1975 To Whom It May Concern, Please excuse above patient from work. Date of Illness: From: 01/07/2024 To: 01/19/2024 May Return to Work On:01/20/2024 Restrictions: _ Comments: _ Sincerely, YISEL Jacobsen [facility] Trauma [facility] Ambulatory Visit Summaryon 0 01-12-2024 [...] AM EDT With: Ford Bauman DO Where: [facility] Family Medicine [facility] Family Medicine Office/Clini c Noteon 01-12-2024 Family Medicine Office/Clinic Note HPI Staff Patient here for hospitalization f/u with TCM TCM: Hospital: [facility] Admission date: 01/06/24 Discharge date: 01/08/24 Symptoms [...] pain:No Tremors:No Headaches:No Heart fluttering:No Blurred Vision:No [place]: cologuard justs needs to complete it Flu: declines phq/[id number] History of Present Illness Patient presents today for hospital followup. Hospital location: [facility] Admission Date: 01/06/2024 Discharge Date: 01/08/2024 Reviewed Records: ER summary, discharge summary, consultation notes, history and physical Summary: Patient presented to the [facility] ER on date above for acute onset [...] Ford ESTEBAN FAM Within 2 weeks [address] [address]- Additional Instructions: 2 WEEKS Problem [...] Oral, TID, PRN, (more content not included)... [facility] Comment on above: Result Comment: Elec tronically Signed By: Ford Bauman DO\\.br\\Date and Time Signed: 01/12/24 08:43 EDT IntraOperative Documentson 0 01-12-2024 IntraOperative Documents [id number] .00TIFF [facility] 01-11-20 [facility] [place][Note 2] Case Information Case Priority: None Programs: -- Referral Source: Agricultural Adviser Referral Reason: Care coordination Case Type: Transition [...] note. Created By: Lea ALAS, Ofelia Cespedes [facility] Progress Note-Physicianon Progress Note-Physician Patient: MAO ESCOBEDO [...] Surgery Unit, and To home ). Normal [facility] Comment on above: Result Comment: Elec tronically Signed By: Alberto Martinez Jr., DO.dianna\\Date and Time Signed: 01/11/24 07:11 EDT CBC w/ Auto Diffon 4 Basophils/100 WBC (Bld) 0.5 % Normal 0.0-2.0 [facility] Comment on above: Performed By: #### 2 [id number] #### [facility] Laboratory [address] [place] [address] Basophils/Leukocytes Auto (Bld) [Pure # fraction] 0.1 E9/L Normal 0.0-0.2 [facility] Comment on above: Performed By: #### 2 [id number] #### [facility] [address] [place] [address] Eosinophils (Bld) [#/Vol] 0.2 E9/L Normal 0.0-0.5 [facility] Comment on above: Performed By: #### 2 [id number] #### [facility] [address] [place] [address] Eosinophils/100 WBC (Bld) 2.2 % Normal 0.0-8.0 [facility] Comment on above: Performed By: #### 2 [id number] #### [facility] Laboratory [address] [place] [address] Erythrocyte distribution width (RBC) [Ratio] 13.3 % Normal 10.9-14.2 [facility] Comment on above: Performed By: #### 2 [id number] #### [facility] [address] [place] [address] Hematocrit (Bld) [Volume fraction] 46.5 % Normal 37.7-49.0 [facility] Comment on above: Performed By: #### 2 987239 #### [facility] [address] [place] [address] Hemoglobin (Bld) [Mass/Vol] 15.6 g/dL Normal 13.5-17.5 [facility] Comment on above: Performed By: #### 2 619605 #### [facility] [address] [place] [address] Lymphocytes (Bld) [#/Vol] 2.1 E9/L Normal 1.0-4.0 [facility] Comment on above: Performed By: #### 2 915153 #### [facility] [address] [place] [address] Lymphocytes/100 WBC (Bld) 20.7 % Normal 14.0-50.0 [facility] Comment on above: Performed By: #### 2 922332 #### [facility] [address] [place] [address] MCH (RBC) [Entitic mass] 29.6 pg Normal 27.0-34.0 [facility] Comment on above: Performed By: #### 2 243240 #### [facility] [address] [place] [address] MCHC (RBC) [Mass/Vol] 33.5 g/dL Normal 31.4-36.0 [facility] Comment on above: Performed By: #### 2 156562 #### [facility] [address] [place] [address] MCV (RBC) [Entitic vol] 88.3 fL Normal 80.0-100.0 [facility] Comment on above: Performed By: #### 2 232424 #### [facility] [address] [place] [address] Monocytes (Bld) [#/Vol] 0.5 E9/L Normal 0.2-1.0 [facility] Comment on above: Performed By: #### 2 318052 #### [facility] [address] [place] [address] Neutrophils (Bld) [#/Vol] 7.4 E9/L Normal 2.0-7.5 [facility] Comment on above: Performed By: #### 2 079976 #### [facility] [address] [place] [address] Neutrophils/100 WBC (Bld) 71.9 % Normal 36.0-75.0 [facility] Comment on above: Performed By: #### 2 774517 #### [facility] [address] [place] [address] Platelet mean volume (Bld) [Entitic vol] 7.5 fL Normal 6.4-10.8 [facility] Comment on above: Performed By: #### 2 411605 #### [facility] [address] [place] [address] Platelets (Bld) [#/Vol] 330.0 E9/L Normal 150.0-500.0 [facility] Comment on above: Performed By: #### 2 485427 #### [facility] [address] [place] [address] RBC (Bld) [#/Vol] 5.3 E12/L Normal 4.3-5.9 [facility] Comment on above: Performed By: #### 2 969632 #### [facility] [address] [place] [address] WBC corrected for nucl RBC Auto (Bld) [#/Vol] 10.3 E9/L Normal 4.0-11.0 [facility] Comment on above: Performed By: #### 2 [id number] #### [facility] [address] [place] [address] CHEMISTRYOrdered By: SYSTEM SYSTEM on 01-10-2024 Albumin [...] 01-10-2024 Albumin [Mass/Vol] 3.9 g/dL Normal 3.3-5.0 [facility] Comment on above: Performed By: #### 2 487244 #### [facility] [address] [place] [address] Albumin/Globulin (S) [Mass conc ratio] 1.3 Normal 1.1-2.2 [facility] Comment on above: Performed By: #### 2 509080 #### [facility] [address] [place] [address] ALP [Catalytic activity/Vol] 65 Int._Unit/L Normal 21-98 [facility] Comment on above: Performed By: #### 2 287913 #### [facility] [address] [place] [address] ALT No additional P-5'-P [Catalytic activity/Vol] 29 Int._Unit/L Normal 6-46 [facility] Comment on above: Performed By: #### 2 451281 #### [facility] [address] [place] [address] Anion gap [Moles/Vol] 11 mmol/L Normal 6-16 [facility] Comment on above: Performed By: #### 2 820110 #### [facility] [address] [place] [address] AST [Catalytic activity/Vol] 21 Int._Unit/L Normal 5-43 [facility] Comment on above: Performed By: #### 2 320766 #### [facility] [address] [place] [address] Bilirubin [Mass/Vol] 0.4 mg/dL Normal 0.0-1.1 [facility] Comment on above: Performed By: #### 2 736778 #### [facility] [address] [place] [address] Calcium [Mass/Vol] 9.0 mg/dL Normal 8.9-11.1 [facility] Comment on above: Performed By: #### 2 834791 #### [facility] [address] [place] [address] Chloride [Moles/Vol] 100 mmol/L Low 101-111 [facility] Comment on above: Performed By: #### 2 [id number] #### [facility] [address] [place] [address] CO2 [Moles/Vol] 31 mmol/L Normal 21-31 [facility] Comment on above: Performed By: #### 2 037947 #### [facility] [address] [place] [address] Creatinine [Mass/Vol] 1.0 mg/dL Normal 0.5-1.3 [facility] Comment on above: Performed By: #### 2 310018 #### [facility] [address] [place] [address] Globulin (S) [Mass/Vol] 2.9 g/dL Normal 1.4-4.0 [facility] Comment on above: Performed By: #### 2 243043 #### [facility] [address] [place] [address] Glucose [Mass/Vol] 94 mg/dL Normal 55-199 [facility] Comment on above: Performed By: #### 2 338560 #### [facility] [address] [place] [address] Potassium [Moles/Vol] 3.8 mmol/L Normal 3.5-5.3 [facility] Comment on above: Performed By: #### 2 864864 #### [facility] [address] [place] [address] Protein [Mass/Vol] 6.8 g/dL Normal 6.0-7.8 [facility] Comment on above: Performed By: #### 2 179533 #### [facility] [address] [place] [address] Sodium [Moles/Vol] 138 mmol/L Normal 135-145 [facility] Comment on above: Performed By: #### 2 560382 #### [facility] [address] [place] [address] Urea nitrogen [Mass/Vol] 12 mg/dL Normal 5-21 [facility] Comment on above: Performed By: #### 2 580235 #### [facility] [address] [place] [address] Urea nitrogen/Creatinine [Mass ratio] 12 No Units Normal 10-20 [facility] Comment on above: Performed By: #### 2 779214 #### [facility] [address] [place] [address] Consent for Treatmenton Consent for Treatment [id number] .00TIFF Normal [facility] Discharge Instructionson Discharge Instructions [id number]# 1.00TIFF Normal [facility] ED Clinical Summaryon 2023 ED Clinical Summary [address] [address] ED Clinical Summary Person Information Name: [facility] 48 [facility] : 1975 Sex: Male Language: Zambian PCP: Ford Bauman DO Marital Status: Single Phone: [phone] Visit Id: Visit Reason: Medical problem - [...] 01/10/2024 02:02:51 01/10/2024 02:02:51 01/10/2024 02:02:51 ADDRESS: [address] [place] [phone] [facility] NOTES: MEDICAL INFORMATION: Prescriptions Given: Medications to [...] INFORMATION: Instructions: Minimally Invasive Cholecystectomy, Care After, Xloy-ru-Syif Follow up: With: Address: When: Ivette Ash [address] [place] [address], [address], [address] [phone] Business (1) In 3 days 01/13/2024 Comments: Please follow-up with general surgery for further evaluation and management. Return to the ED for any new or worsening symptoms. With: Address: When: Ford Bauman [facility] [address] [phone] Business (1) In 3 days 01/13/2024 DIAGNOSIS: Encounter for recheck of abscess following incision and drainage Normal [facility] ED Note-Physicianon 01-10-20 ED Note-Physician Basic Information [...] and Complexity of Problems Differential Diagnosis: [] [facility] Data External documents reviewed: [] My [...] EDT [address], [address] [phone] Business (1) Additional Instructions: Please follow-up with general surgery for further evaluation and management. Return to the ED for any new or worsening symptoms. Ford Mitul In 3 days 01/13/[address] [place] [address]- Business (1) Additional Instructions: Patient Education Minimally Invasive Cholecystectomy, Care After, Deei-db-Uhsg Problem List/Past Medical History Ongoing BMI 37.0-37.9, [...] mg= 1 (more content not included)... Normal [facility] Comment on above: Result Comment: Elec tronically Signed By: Paris Brannon DO\\.br\\Date and Time Signed: 01/10/24 01:58 EDT ED [...] these instructions at home: Medicines ? Take mlra-enz-gvspgqg and prescription medicines only as told by [...] cannot use soap and water, use hand heading pinner. ? Change your bandage. ? Leave stitches [...] Reviewed: 01/28/2022 Elsevier Patient Education ? 2022 [employer] Normal [facility] ED Patient Summaryon 024 ED Patient Summary [address] [address] Patient Discharge Instructions Person Information Name: MAO ESCOBEDO Age: 48 Years Arrival Date: 01/10/2024 00:23:26 Discharge Diagnosis: Encounter for recheck of abscess following incision and drainage Primary Care Physician: Ford Bauman DO Provider Information Primary Provider: Paris Brannon DO Advanced Hand Lens Polisher:None The exam and treatment you received in the Emergency Department were for an urgent problem and are not intended as complete care. It is important that you follow up with a doctor, nurse practitioner, or physician?s travel assistant for ongoing care. If your symptoms become worse or you do not improve as expected and you are unable to reach your usual health care provider, you should return to the Emergency Department. We are available 24 hours a day. MAO ESCOBEDO has been given the following list of patient education materials, prescriptions and follow-up instructions: Follow-up Instructions: With: Address: When: Ivette Ash [address] [place] [address], [facility] [address], [address] [phone] Game Closure (1) In 3 days 01/13/2024 Comments: Please follow-up with general surgery for further evaluation and management. Return to the ED for any new or worsening symptoms. With: Address: When: Ford Bauman [address] [place] [phone] Game Closure (1) In 3 days 01/13/2024 In the event that this physician does not participate in your insurance network, please consult with your insurance company to find a nearby participating provider. Patient Education Materials: Minimally Invasive Cholecystectomy, Care After, Sqdn-ve-Juqb A MESSAGE TO ALL PATIENTS REGARDING OPIOIDS PRESCRIPTION OPIOIDS: WHAT YOU NEED TO KNOW Prescription opioids can be used to help relieve hocselbv-rp-zadhjs pain and are often prescribed following a [...] guidance from (more content not included)... Normal [facility] HEMATOLOGYOrdered By: SYSTEM SYSTEM on 01-10-2024 Basophils/100 [...] 01-10-2024 eGFR 93 mL/min/1.73 m2 Normal >=59 [facility] Comment on above: Order Comment: Order added by Discern Expert. Performed By: #### 1 [id number] #### [facility]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 JOSELYN+probe Ql (Unsp spec) Negative Normal Negative [facility] Comment on above: Result Comment: This is a duplicate Cepheid Xpert Xpress CoV-2/Flu/RSV Plus RNA by RT-PCR result to be used for statistical tracking purpose only. PERFORMED BY: [place] [address] PATHOLOGIST BREWERY PUMPER REGINA LUA M.D. Performed By: #### C EPHEID NEG, COVID19 FLU RSV #### [facility] [address] Vital Signs Date Time Vital Sign Value Performing Clinician Braden egan 04-07-2024 15:49-0400 Blood Pressure Location Ford Link [facility] 04-07-2024 15:49-0400 Diastolic blood pressure 74 mm[Hg] Ford Link [facility] 04-07-2024 15:49-0400 Heart rate 70 /min Ford [facility] 04-07-2024 15:49-0400 SaO2% (BldA) [Mass fraction] 96 % Ford Link [facility] 04-07-2024 15:49-0400 Systolic blood pressure 122 mm[Hg] Ford Link [facility] 01-28-2024 07:43-0400 Blood Pressure Location Ford Link [facility] 01-28-2024 07:43-0400 Diastolic blood pressure 72 mm[Hg] Ford Link [facility] 01-28-2024 07:43-0400 Heart rate 72 /min [facility] 01-28-2024 07:43-0400 SaO2% (BldA) [Mass fraction] 99 % Ford [facility] 01-28-2024 07:43-0400 Systolic blood pressure 118 mm[Hg] Ford [facility] 01-13-2024 10:25-0400 Body temperature 97.88 [degF] Justin Garvey [facility] 01-13-2024 10:25-0400 Diastolic blood pressure 76 mm[Hg] Justin Garvey [facility] 01-13-2024 10:25-0400 Heart rate 79 /min Justin Garvey [facility] 01-13-2024 10:25-0400 Systolic blood pressure 112 mm[Hg] Justin Garvey [facility] 01-12-2024 07:48-0400 Blood Pressure Location [facility] 01-12-2024 07:48-0400 Body temperature 98.42 [degF] [facility] 01-12-2024 07:48-0400 Diastolic blood pressure 74 mm[Hg] Ford [facility] 01-12-2024 07:48-0400 Heart rate 76 /min [facility] 01-12-2024 07:48-0400 Respiratory rate 15 /min [facility] 01-12-2024 07:48-0400 SaO2% (BldA) [Mass fraction] 99 % Ford Link [facility] 01-12-2024 07:48-0400 Systolic blood pressure 120 mm[Hg] Ford Link [facility] 01-10-2024 14:00-0400 Diastolic blood pressure 93 mm[Hg] Kaylinn Dokken [facility] 01-10-2024 14:00-0400 Heart rate 95 /min Kaylinn Dokken [facility] 01-10-2024 14:00-0400 Mean blood pressure 107 mm[Hg] Kaylinn Dokken [facility] 01-10-2024 14:00-0400 Respiratory rate 18 /min Kaylinn Dokken [facility] 01-10-2024 14:00-0400 SaO2% (BldA) [Mass fraction] 96 % Kaylinn Dokken [facility] 01-10-2024 14:00-0400 Systolic blood pressure 134 mm[Hg] Kaylinn Dokken [facility] 01-10-2024 00:28-0400 Body temperature 97.7 [degF] Kaylinn Dokken [facility] 01-10-2024 00:28-0400 Diastolic blood pressure 80 mm[Hg] Kaylinn Dokken [facility] 01-10-2024 00:28-0400 Heart rate 85 /min Kaylinn Dokken [facility] 01-10-2024 00:28-0400 Respiratory rate 16 /min Kaylinn Dokken [facility] 01-10-2024 00:28-0400 SaO2% (BldA) [Mass fraction] 98 % Kaylinn Dokken [facility] 01-10-2024 00:28-0400 Systolic blood pressure 120 mm[Hg] Kaylinn Dokken [facility] 01-08-2024 11:00-0400 Hourly Rounding Ivette Robenstine [facility] 01-08-2024 11:00-0400 Promise to Return Ivette Robenstine [facility] 01-08-2024 10:00-0400 Hourly Rounding Ivette Robenstine [facility] 01-08-2024 10:00-0400 Promise to Return Ivette Robenstine [facility] 01-08-2024 09:39-0400 Hourly Rounding Ivette Robenstine [facility] 01-08-2024 09:39-0400 Promise to Return Ivetet Robenstine [facility] 01-08-2024 07:37-0400 Heart rate 58 /min Ivette Robenstine [facility] 01-08-2024 07:37-0400 SaO2% (BldA) [Mass fraction] 98 % Ivette Robenstine [facility] 01-08-2024 07:37-0400 Body temperature 97.7 [degF] Ivette Robenstine [facility] 01-08-2024 07:36-0400 Diastolic blood pressure 71 mm[Hg] Ivette Robenstine [facility] 01-08-2024 07:36-0400 Mean blood pressure 82 mm[Hg] Ivette Robenstine [facility] 01-08-2024 07:36-0400 Systolic blood pressure 106 mm[Hg] Ivette Robenstine [facility] 01-08-2024 00:00-0400 Body temperature 98.06 [degF] Ivette Robenstine [facility] 01-08-2024 00:00-0400 Diastolic blood pressure 66 mm[Hg] Ivette Robenstine [facility] 01-08-2024 00:00-0400 Heart rate 96 /min Ivette Robenstine [facility] 01-08-2024 00:00-0400 Respiratory rate 6 /min Ivette Robenstine [facility] 01-08-2024 00:00-0400 SaO2% (BldA) [Mass fraction] 96 % Ivette Robenstine [facility] 01-08-2024 00:00-0400 Systolic blood pressure 111 mm[Hg] Ivette Robenstine [facility] 01-07-2024 23:34-0400 SaO2% (BldA) [Mass fraction] 98 % Ivette Robenstine [facility] 01-07-2024 19:39-0400 Heart rate 82 /min Ivette Robenstine [facility] 01-07-2024 19:34-0400 Body temperature 97.52 [degF] Ivette Robenstine [facility] 01-07-2024 19:34-0400 Diastolic blood pressure 80 mm[Hg] Ivette Robenstine [facility] 01-07-2024 19:34-0400 Mean blood pressure 94 mm[Hg] Ivette Robenstine [facility] 01-07-2024 19:34-0400 Systolic blood pressure 120 mm[Hg] Ivette Robenstine [facility] 01-07-2024 19:00-0400 Respiratory rate 17 /min Ivette Robenstine [facility] 01-07-2024 16:43-0400 Mean blood pressure 78 mm[Hg] Ivette Robenstine [facility] 01-07-2024 16:15-0400 Body temperature 97.88 [degF] Ivette Robenstine [facility] 01-07-2024 16:15-0400 Mean blood pressure 79 mm[Hg] Ivette Robenstine [facility] 01-07-2024 16:15-0400 Respiratory rate 20 /min Ivette Robenstine [facility] 01-07-2024 16:05-0400 Mean blood pressure 76 mm[Hg] Ivette Robenstine [facility] 01-07-2024 16:05-0400 Respiratory rate 15 /min Ivette Robenstine [facility] 01-07-2024 16:00-0400 Mean blood pressure 83 mm[Hg] Ivette Robenstine [facility] 01-07-2024 16:00-0400 Respiratory rate 30 /min Ivette Robenstine [facility] 01-07-2024 15:50-0400 Body temperature 97.88 [degF] Ivette Robenstine [facility] 01-07-2024 15:50-0400 FIO2 100 1 Ivette Robenstine [facility] 01-07-2024 15:50-0400 Respiratory rate 1 /min Ivette Robenstine [facility] 01-07-2024 15:45-0400 FIO2 100 1 Ivette Robenstine [facility] 01-07-2024 15:40-0400 FIO2 100 1 Ivette Robenstine [facility] 01-07-2024 10:57-0400 Blood Pressure Location Ivette Robenstine [facility] 01-06-2024 14:25-0400 Body temperature 98.42 [degF] Ivette Fernandeztine [facility] 01-06-2024 08:09-0400 Body temperature 98.06 [degF] Ivette Lunaenstine [facility] 01-06-2024 08:09-0400 Heart rate 75 /min Ivette Fernandeztine [facility] 12-17-2023 16:47-0400 Blood Pressure Location [facility] 12-17-2023 16:47-0400 Diastolic blood pressure 74 mm[Hg] [facility] 12-17-2023 16:47-0400 Heart rate 60 /min [facility] 12-17-2023 16:47-0400 SaO2% (BldA) [Mass fraction] 98 % [facility] 12-17-2023 16:47-0400 Systolic blood pressure 116 mm[Hg] [facility] 11-17-2023 17:48-0400 Blood Pressure Location [facility] 11-17-2023 17:48-0400 Diastolic blood pressure 78 mm[Hg] [facility] 11-17-2023 17:48-0400 Heart rate 82 /min [facility] 11-17-2023 17:48-0400 SaO2% (BldA) [Mass fraction] 98 % [facility] 11-17-2023 17:48-0400 Systolic blood pressure 122 mm[Hg] [facility] 10-16-2023 14:35-0500 Blood Pressure Location [facility] 10-16-2023 14:35-0500 Body temperature 98.06 [degF] [facility] 10-16-2023 14:35-0500 Diastolic blood pressure 62 mm[Hg] [facility] 10-16-2023 14:35-0500 Heart rate 80 /min [facility] 10-16-2023 14:35-0500 Respiratory rate 15 /min [facility] 10-16-2023 14:35-0500 SaO2% (BldA) [Mass fraction] 98 % [facility] 10-16-2023 14:35-0500 Systolic blood pressure 128 mm[Hg] [facility] 10-06-2023 11:35-0500 Blood Pressure Location [facility] 10-06-2023 11:35-0500 Diastolic blood pressure 78 mm[Hg] Ford Link [facility] 10-06-2023 11:35-0500 Heart rate 75 /min Ford Link [facility] 10-06-2023 11:35-0500 SaO2% (BldA) [Mass fraction] 98 % Ford Link [facility] 10-06-2023 11:35-0500 Systolic blood pressure 118 mm[Hg] Ford Link [facility] 06-19-2023 08:53-0500 Blood Pressure Location Fadi NILL [facility] 06-19-2023 08:53-0500 Diastolic blood pressure 81 mm[Hg] Fadi NILL [facility] 06-19-2023 08:53-0500 Heart rate 63 /min Fadi NILL [facility] 06-19-2023 08:53-0500 Respiratory rate 16 /min Fadi NILL [facility] 06-19-2023 08:53-0500 Systolic blood pressure 138 mm[Hg] Fadi NILL [facility] 06-05-2023 01:48-0400 Body temperature 97.7 [degF] Kaylinn Dokken [facility] 06-05-2023 01:48-0400 Diastolic blood pressure 78 mm[Hg] Kaylinn Dokken [facility] 06-05-2023 01:48-0400 Heart rate 65 /min Rhiannonylinn Dokken [facility] 06-05-2023 01:48-0400 Respiratory rate 18 /min Rhiannonylinn Dokken [facility] 06-05-2023 01:48-0400 SaO2% (BldA) [Mass fraction] 98 % Kaylinn Dokken [facility] 06-05-2023 01:48-0400 Systolic blood pressure 137 mm[Hg] Kaylinn Dokken [facility] 01-02-2023 09:39-0400 Blood Pressure Location Ivette Robenstine [facility] 01-02-2023 09:39-0400 Body temperature 98.06 [degF] Ivette Robenstine [facility] 01-02-2023 09:39-0400 Diastolic blood pressure 78 mm[Hg] Ivette Robenstine [facility] 01-02-2023 09:39-0400 Heart rate 59 /min Ivette Robenstine [facility] 01-02-2023 09:39-0400 Respiratory rate 18 /min Ivette Robenstine [facility] 01-02-2023 09:39-0400 SaO2% (BldA) [Mass fraction] 99 % Ivette Robenstine [facility] 01-02-2023 09:39-0400 Systolic blood pressure 131 mm[Hg] Ivette Robenstine [facility] 02-24-2022 12:52-0400 Blood Pressure Location KATE SIDELL [facility] 02-24-2022 12:52-0400 Diastolic blood pressure 86 mm[Hg] KATE SIDELL [facility] 02-24-2022 12:52-0400 Heart rate 70 /min KATE SIDELL [facility] 02-24-2022 12:52-0400 SaO2% (BldA) [Mass fraction] 97 % KATE SIDELL [facility] 02-24-2022 12:52-0400 Systolic blood pressure 140 mm[Hg] KATE SIDELL [facility] 02-14-2022 13:29-0400 Blood Pressure Location KATE SIDELL [facility] 02-14-2022 13:29-0400 Diastolic blood pressure 84 mm[Hg] KATE SIDELL [facility] 02-14-2022 13:29-0400 Heart rate 70 /min KATE SIDELL [facility] 02-14-2022 13:29-0400 SaO2% (BldA) [Mass fraction] 99 % KATE SIDELL [facility] 02-14-2022 13:29-0400 Systolic blood pressure 136 mm[Hg] KATE SIDELL [facility] 12-25-2021 08:10-0400 Body temperature 97.52 [degF] Yared Puente [facility] 12-25-2021 08:10-0400 Diastolic blood pressure 74 mm[Hg] Yared Kwame [facility] 12-25-2021 08:10-0400 Heart rate 70 /min Yared Kwame [facility] 12-25-2021 08:10-0400 Respiratory rate 18 /min Yared Kwame [facility] 12-25-2021 08:10-0400 SaO2% (BldA) [Mass fraction] 99 % Yared Kwame [facility] 12-25-2021 08:10-0400 Systolic blood pressure 143 mm[Hg] Yared Puente [facility] Encounters Encounter Date Encounter Type Care Provider Facility Start: 06-24-2024 ambulatory Ford C Link Facility:[facility] Start: 04-25-2024 End: 04-25-2024 ambulatory Ford C Link Facility:[facility] Start: 04-07-2024 End: 04-07-2024 ambulatory Ford C Link Facility:[facility] Start: 04-07-2024 End: 04-07-2024 Patient encounter procedure Ford C Link [facility] Start: 01-28-2024 End: 01-28-2024 ambulatory Ford C Link Facility:[facility] Start: 01-28-2024 End: 01-28-2024 Patient encounter procedure Ford C Link [facility] Start: 01-13-2024 End: 01-13-2024 ambulatory Gabbi Salinas Facility:[facility] Start: 01-13-2024 End: 01-13-2024 Patient encounter procedure Justin Garvey [facility] Start: 01-12-2024 End: 01-12-2024 ambulatory Ford C Link Facility:[facility] Start: 01-12-2024 End: 01-12-2024 Patient encounter procedure Ford C Link [facility] Start: 01-11-2024 End: 02-09-2024 ambulatory Ford C Link Facility:[id number] Start: 01-10-2024 End: 01-10-2024 Emergency department patient visit Paris Brannon Facility:[facility] Start: 01-06-2024 ambulatory Ivette Bone acility:[facility] Start: 01-06-2024 End: 01-08-2024 ambulatory Ivette Ash Facility:[facility] Start: 01-06-2024 Emergency department patient visit Johnny Moctezuma Facility:[facility] Start: 01-06-2024 End: 01-08-2024 Observation Ivette Ash [facility] Start: 12-17-2023 End: 12-17-2023 ambulatory Ford C Link Facility:[facility] Start: 12-17-2023 End: 12-17-2023 Patient encounter procedure Ford C Link [facility] Start: 11-17-2023 End: 11-17-2023 ambulatory Ford C Link Facility:[facility] Start: 11-17-2023 End: 11-17-2023 Patient encounter procedure Ford C Link [facility] Start: 10-16-2023 End: 10-16-2023 ambulatory Ford C Link Facility:[facility] Start: 10-16-2023 End: 10-16-2023 Patient encounter procedure Ford C Link [facility] Start: 10-06-2023 End: 10-06-2023 ambulatory Ford C Link Facility:[facility] Start: 10-06-2023 End: 10-06-2023 Patient encounter procedure Ford C Link [facility] Start: 09-02-2023 End: 09-02-2023 ambulatory Ankur Faria Facility:[facility] Start: 09-02-2023 End: 09-02-2023 Patient encounter procedure Ankur Faria [facility] Start: 06-19-2023 End: 06-19-2023 ambulatory Fadi RAHMAN Facility: [facility] Start: 06-19-2023 End: 06-19-2023 Patient encounter procedure Fadi RAHMAN [facility] Start: 06-05-2023 ambulatory Franklin Spasic Facil ity:[facility] Start: 06-05-2023 End: 06-05-2023 Emergency department patient visit Paris Brannon [facility] Start: 03-02-2023 End: 03-02-2023 ambulatory Franklin V. Spasic Facility: [place] Start: 01-02-2023 End: 01-02-2023 Patient encounter procedure Ivette Ash [facility] Start: 09-06-2022 End: 09-06-2022 Emergency department patient visit Jose Elias Oliver Jr Facility:[facility] Start: 02-24-2022 End: 02-24-2022 Patient encounter procedure KATE Ornelas RADHA [facility] Start: 02-14-2022 End: 02-14-2022 Patient encounter procedure KATE GARCIA [facility] Start: 02-10-2022 End: 02-10-2022 Emergency department patient visit Andrés Christopher Facility:[facility] Start: 12-25-2021 End: 12-25-2021 Emergency department patient visit Yared Puente [facility] Procedures Date Procedure Procedure Detail Performing Clinician [...] SARS-CoV-2 (COVID-19 ) mRNA-1273 vaccine Fadi RAHMAN [facility] 12-17-2020 SARS-CoV-2 (COVID-19 ) mRNA-1273 vaccine Fadi RAHMAN [facility] 02-25-2019 tetanus toxoid, reduced diphtheria toxoid, and acellular pertussis vaccine, adsorbed [facility] NEGATED: Highlighted row has not occurred!12-17-2023 influenza virus vaccine, unspecified formulation [facility] NEGATED: Highlighted row has not occurred!11-17-2023 influenza virus vaccine, unspecified formulation [facility] NEGATED: Highlighted row has not occurred!10-16-2023 influenza virus vaccine, unspecified formulation [facility] NEGATED: Highlighted row has not occurred!10-06-2023 influenza virus vaccine, unspecified formulation [facility] NEGATED: Highlighted row has not occurred!06-19-2023 influenza virus vaccine, unspecified formulation Fadi RAHMAN [facility] Payers Date Payer Category Payer Self-pay 2022 Unknown [id number] 1975 Unknown [id number] 2.16.8 [id number] 1975 Unknown [id number] 2.16.8 40.1.631845.3.579.2. 1975 Unknown [id number] 2.16.8 40.1.300356.3.579.2 1975 Unknown [id number] 2.16.8 40.1.538375.3.579.2. 1975 Unknown [id number] 2.16.8 40.1.553473.3.579.2 1975 Unknown [id number] 2.16.8 40.1.910930.3.579.2 1975 Unknown [id number] 2.16.8 40.1.421112.3.579.2 1975 Unknown [id number] 2.16.8 40.1.818897.3.579.2 1975 Unknown [id number] 2.16.8 40.1.938974.3.579.2 1975 Unknown [id number] 2.16.8 40.1.095400.3.579.2 1975 Unknown [id number] 2.16.8 40.1.444478.3.579.2 1975 Unknown [id number] 2.16.8 40.1.068811.3.579.2 1975 Unknown [id number] 2.16.8 40.1.912922.3.579.2 1975 Unknown [id number] 2.16.8 40.1.744797.3.579.2 1976 Unknown [id number] 2.16.8 40.1.997148.3.579.2 1975 Unknown [id number] 2.16.8 40.1.776721.3.579.2 1975 Unknown [id number] 2.16.8 40.1.125960.3.579.2 1975 Unknown [id number] 2.16.8 40.1.871519.3.579.2.727 1975 Unknown [id number] 2.16.8 40.1.206817.3.579.2.727 1975 Unknown [id number] 2.16.8 40.1.998438.3.579.2.727 1975 Unknown [id number] 2.16.8 40.1.785140.3.579.2.727 1975 Unknown [id number] 2.16.8 40.1.274184.3.579.2.727 Unknown [id number] 2.16.8 40.1.375018.3.579.2.531 Unknown [id number] 2.16.8 40.1.011639.3.579.2.531 Social History Date Type Detail Facility Start: 08-24-2015 Tobacco smoking status Smokes tobacco daily (finding) [facility] Comment on above: 08/13 PPD Sex Assigned At Male [facility] Start: 02-14-2022 End: 04-07-2024 Tobacco smoking status Light tobacco smoker (finding) [facility] Comment on above: girlfriend smokes in home Tobacco smoking status Never [facility] Comment on above: girlfriend smokes in home Start: 01-02-2023 Tobacco smoking status Ex-smoker (fi nding) [facility] Start: 06-19-2023 Tobacco smoking status Heavy t obacco smoker (finding) [facility] [place] Functional Status Date Assessment Result Facility 04-07-2024 Functional Status N/A [facility] 01-28-2024 Functional Status N/A [facility] 01-12-2024 Functional Status N/A [facility] 01-10-2024 Functional Status N/A [facility] 01-06-2024 Functional Status N/A [facility] 01-06-2024 Functional Status [facility] 12-17-2023 Functional Status N/A [facility] 11-17-2023 Functional Status N/A [facility] 10-16-2023 Functional Status N/A [facility] 10-06-2023 Functional Status N/A [facility] 06-19-2023 Functional Status N/A [facility] [place] 06-05-2023 Functional Status N/A [facility] 02-24-2022 Functional Status N/A [facility] 02-14-2022 Functional Status N/A [facility] Clinical Notes 12-25-2021 to 01-12-2024 Note Date & Type Note Facility 01-12-2024 Hospital Discharg e instructions Follow Up Care 01/12/2024 08:26:06 With:Ford Bauman DO, FAM Address: [address] [address]- When:3 months Comments:Controlled Medication Followup [facility] 01-10-2024 Evaluation + Plan note Extrac delia [...] Appointments Appointment Date:01/12/2024 07:40:00 AM Scheduled Provider:Ford Bamuan DO Location:[facility] Appointment Type:FM Open [facility]06-02-2024 NoteDISCHARGE SUMMARY [address] [address] [place] ESCOBEDO Date of : 1975 48 [...] UP: With: Address: When: trauma clinic [address] [facility] [address], second floor, [address] [place], [place] [id number] Within 1 to 2 weeks Comments: Call [...] assessment, potential removal Ivette Ash MD 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 /[facility] Comment on above:Result Comment: Electronically Signed By: Gabbi Salinas PA-C\\.br\\Date and Time Signed: 01/08/24 11:30 EDT\\.br\\Electronically Co-Signed By: Nilsa SPICER, Ivette Rocha\\.br\\Date and Time Co-Signed: 01/10/24 12:18 EDT 01-10-2024 [...] Locations R1: This test was performed at: [facility], [address] [place] [address], [id number] , , [facility]ggnreTr[facility] CenterComment on above:Performed By: #### [id number] ####[facility] [address] [place], [place] [id number] Hospital Discharge instructions Patient Education 01/10/2024 02:02:51 Minimally Invasive Cholecystectomy, Care After, Hclr-qj-Wfbi Minimally Invasive Cholecystectomy, Care After What can [...] Follow these instructions at home: Medicines Take ssio-shd-iuuxlxq and prescription medicines only as told by [...] cannot use soap and water, use hand heading pinner. ?Change your bandage. ?Leave stitches (sutures) or [...] provider. Document Revised: 01/28/2022 Document Reviewed: 01/28/2022 [employer] Patient Education 2022 Gencia. Follow Up Care 01/10/2024 00:24:51 With:Ivette Ash Address: [address], [address] [address]- [phone] Business (1) When:01/13/2024 Comments:Please follow-up with general surgery for further evaluation and management. Return to the ED for any new or worsening symptoms. With:Ford Link Address: [address] [address]- Business (1) When:01/13/2024 [facility]05-30-2024 Evaluation + Plan noteExtracted from: Title:ANES Pre-operative Note - Adult Author:Alberto Domingo Jr., DO Date:01/07/24 Plan [place] [employer] Anesthesiologists (ASA) physical status classification: [...] Date:01/12/2024 07:40:00 AM Scheduled Provider:Ford Bauman DO Location:[facility] Appointment Type:[facility]05-30-2024 Hospital Discharge instructions Patient Education 01/07/2024 10:23:09 Minimally Invasive Cholecystectomy, Care After, Qbxf-ip-Bcpp Minimally Invasive Cholecystectomy, Care After What can [...] Follow these instructions at home: Medicines Take utuw-cbl-zipdhwq and prescription medicines only as told by [...] cannot use soap and water, use hand heading pinner. ?Change your bandage. ?Leave stitches (sutures) or [...] provider. Document Revised: 01/28/2022 Document Reviewed: 01/28/2022 [employer] Patient Education 2022 Gencia. 01/07/2024 10:23:07 Cholecystitis, Anrj-ng-Qsgh Cholecystitis Cholecystitis is irritation and swelling (inflammation) [...] Follow these instructions at home: Medicines Take vuwl-onv-egxpvww and prescription medicines only as told by [...] provider. Document Revised: 01/28/2022 Document Reviewed: 01/28/2022 [employer] Patient Education 2022 Gencia. Follow Up Care 01/06/2024 08:04:16 With:Ford Link Address: [address] [phone]- Business (1) When: Unknown With:trauma clinic Address: [address] [place] [address] 3, second floor, [address] [place] [address]- [phone] When:1 to 2 weeks Comments:Call to schedule/confirm followup appointment [facility]05-30-2024 NoteACUTE CARE SURGERY CONSULT NOTE CHIEF COMPLAINT: [...] Lymph Abs Man: 2.2 E9/L (01/06/24 08:44:00) Bennett Abs Man: 0.9 E9/L (01/06/24 08:44:00) Eos [...] use dose modulation, itera (more content not included)...[facility] CenterComment on above:Result Comment: Electronically Signed By: Nilsa SPICERIvette.br\\Date and Time Signed: 01/06/24 23:59 [id number] NoteACUTE CARE SURGERY CONSULT NOTE CHIEF COMPLAINT: [...] Lymph Abs Man: 2.2 E9/L (01/06/24 08:44:00) Bennett Abs Man: 0.9 E9/L (01/06/24 08:44:00) Eos [...] use dose modulation, itera (more content not included)...[facility] CenterComment on above:Result Comment: Electronically Signed By: Nilsa SPICER, Ivette Rocha\\.br\\Date and Time Signed: 01/06/24 23:59 [id number] Hospital Discharge instructions Follow Up Care 12/17/2023 17:06:56 With:Ford Bauman DO [facility] Address: [address] [place] [address]- When:2 weeks Comments:2 WEEKS [facility] 04-15-2024 Hospital Discharge instructions Follow Up Care 11/23/2023 12:27:06 With:Ford Bauman DO [facility] Address: [address] [place] [address]- When:4 weeks Comments:4 WEEKS FOLLOWUP [facility] 04-09-2024 Hospital Discharge instructions Patient Education 11/17/2023 [...] your health care provider or diet and public health nutritionist (dietitian). This may include: ?Eating fewer calories. [...] provider. Document Revised: 09/22/2021 Document Reviewed: 09/22/2021 [employer] Patient Education 2022 Gencia. 11/17/2023 18:01:38 BMI for Adults BMI for [...] numbers. This can be done either in [place] (U.S[place] or metric measurements. Note that charts and online BMI calculators are available to help you find your BMI quickly and easily without having to do these calculations yourself. To calculate your BMI in [place] ([place].S[place] measurements: 1.Measure your weight in pounds [...] Centers for Disease Control and Prevention: www.cdc.gov [place] Heart Association: www.heart.org National Heart, Lung, and Blood [place]: www.nhlbi.nih.gov Summary Body mass index (BMI) is a number that is calculated from a person's weight and height. BMI may help estimate how much of a person's weight is composed of fat. BMI can help identify thosewho may be at higher risk for certain medical problems. BMI can be measured using [place]ian measurements or metric measurements. BMI charts are used to identify whether you are underweight, normal weight, overweight, or obese. This information is not intended to replace advice given to you by your health care provider. Make sure you discuss any questions you have with your health care provider. Document Revised: 04/18/2020 Document Reviewed: 02/24/2020 [employer] Patient Education 2022 Gencia. Follow Up Care 10/16/2023 15:24:36 With:Ford Bauman DO, FAM Address: [address] [address]- When:4 weeks Comments:4 WEEKS FOLLOWUP [facility] 03-08-2024 Hospital Discharge instructions Patient Education 10/16/2023 [...] require a prescription. You can also purchase xmse-hrq-xwzshhb medicines. Medicines may have nicotine in them [...] and encouragement. Call telephone quitlines, such as 5-346-VJQZ-NOW, reach out to support groups, or work [...] provider. Document Revised: 07/18/2022 Document Reviewed: 07/18/2022 [employer] - innovate | mentor | invest Patient Education 2022 Gencia. Follow Up Care 10/12/2023 09:21:34 With:Mitul Ford ESTEBANRUKHSANA Address: [address] [place] [address]- When:4 weeks Comments:4 WEEKS FOLLOWUP [facility] [place] 02-27-2024 Hospital Discharge instructions Patient Education 10/06/2023 [...] your health care provider or diet and public health nutritionist (dietitian). This may include: ?Eating fewer calories. [...] provider. Document Revised: 09/22/2021 Document Reviewed: 09/22/2021 [employer] Patient Education 2022 Gencia. 10/06/2023 09:16:31 Steps to Quit Smoking Steps [...] require a prescription. You can also purchase iazr-pnz-elwlrgx medicines. Medicines may have nicotine in them [...] and encouragement. Call telephone quitlines, such as 5-685-TFGX-NOW, reach out to support groups, or work [...] provider. Document Revised: 07/18/2022 Document Reviewed: 07/18/2022 [employer] Patient Education 2022 Gencia. Follow Up Care 10/02/2023 09:24:13 With:Link Ford ESTEBAN FAM Address: [address] [address]- When: Unknown Comments:If needed [facility] 11-12-2023 NoteChief Complaint consultation for perirectal abscess HPI Staff 47 year old male presents on consultation from [place] ED for perirectal abscess. Presented to ED 06/02 with stated complaint. Reported pain. No drainage. I/D completed with moderate purulent material. Prescribed Cipro 500mg BID x 10 days and Flagyl 500mg BID x 10 days. Wound culture with moderategrowth e.coli. Presented to [facility] ED 12/2022 for the same. Prescribed Augmentin. He had one other episode in 2018. Currently he is experiencing pain after prolonged sitting. Drainage has resolved. He completed course of ATB's. History of Present Illness 47 yo male referred from [facility] ED for right perirectal abscess; patient had I & D of right 2 cm perirectal abscess 2 1/2 weeks ago in ED; treated with Cipro/Flagyl; cx with pansensitive E coli, no pain or drainage currently; patient with h/o right perirectal abscess drained 12/2022 at [facility] ED, in past; also episode in 2018 [...] 01/22/2021 Recorded SARS-CoV-2 (COVID-19) mRNA-1273 vaccine 12/17/2020 RecordedTr[facility] Medical CenterComment on above:Result Comment: Electronically Signed By: JOSIAH SPICER, Fadi iGles\\Date and Time Signed: 06/21/23 12:38 [id number] Evaluation + Plan noteExtracted from: Title:ED Note [...] for 7 day(s), 10 mL, Refill(s) 0, Abaxia #37, 182, cm, 06/05/23 1:53:00 EDT, Height/Length Dosing, 122.4, kg, 06/05/23 1:53:00 EDT, Weight Dosing tetracaine ophthalmic, 2 drop(s), Soln-Opth, Eye-Both, Once, Stop date 06/05/23 1:55:00 EDT, STAT, Start date 06/05/23 1:55:00 EDT Future Appointments Appointment Date:06/19/2023 09:00:00 AM Scheduled Provider:Fadi RAHMAN MD Location:[facility] Appointment Type:[address]10-27-2023 Hospital Discharge instructions Patient Education 06/05/2023 02:16:00 Eye Foreign Body, Axhx-yq-Tafi Eye Foreign Body A foreign body is [...] away. You may need to see an selling specialist (urgent care nurse practitioner) for further treatment. Follow these instructions at home: Medicines Take bjlb-kuu-txrtfot and prescription medicines only as told by [...] provider. Document Revised: 11/30/2020 Document Reviewed: 11/30/2020 [employer] Patient Education 2022 Gencia. Follow Up Care 06/05/2023 01:47:09 With:Corinne Stephenson Address: [address] [facility] [address] [address] Business (1) When:06/08/2023 Comments:Use antibiotic drops 4 times a day for the next 7 days. Please follow- up with the eye doctor for further evaluation and management. Please return to the ED for any new or worsening symptoms. With:[employer] Address:Unknown When:Within 3 Day(s) [facility]07-08-2022 Hospital Discharge instructions Patient Education 02/14/2022 14:20:44 [...] frozen fruits, and frozen vegetables. Avoid buying kugcb-ij-amo foods, such as pre-cut fruits and vegetables and pre-made salads. If possible, shop around to discover where you can find the best prices. Consider other retailers such as [employer] stores, larger wholesale stores, local fruit and vegetable [employer], and [employer] markets. Do not shop when you are [...] 03/30/2015 Document Revised: 07/28/2018 Document Reviewed: 07/28/2018 [employer] Patient Education 2020 Gencia. 02/14/2022 14:20:43 BMI for Adults BMI for [...] height. This can be done either in [place] ([place].) or metric measurements. Note that charts are available to help you find your BMI quickly and easily without having to do these calculations yourself. To calculate your BMI in [place] ([place] measurements, your health care provider will: [...] medical problems. BMI can be measured using [place]ian measurements or metric measurements. To interpret your [...] 04/07/2005 Document Revised: 07/09/2018 Document Reviewed: 06/09/2018 [employer] Patient Education 2020 Gencia. 02/14/2022 14:20:32 Second-Degree Burn, Adult Second-Degree Burn, [...] and water are not available, use hand heading pinner. ?Change your dressing as directed. ?If you [...] to the sun. Medicine Take and apply ycwj-oah-qbalimi and prescription medicines only as told by [...] 12/29/2011 Document Revised: 07/09/2018 Document Reviewed: 07/07/2017 [employer] Patient Education 2020 [employer]encia. 02/14/2022 14:20:29 Burn Care, Adult Burn Care, [...] ?Pus or a bad smell. Medicine Take evlr-shw-otavydu and prescription medicines only as told by [...] ?Pus or a bad smell. Medicine Take sikn-hlf-pjwvwnc and prescription medicines only as told by [...] ?Pus or a bad smell. Medicine Take ovth-oqg-werjgol and prescription medicines only as told by [...] 07/27/2006 Document Revised: 07/09/2018 Document Reviewed: 01/13/2017 [employer] Patient Education 2020 Gencia. Follow Up Care 02/12/2022 11:26:13 With:KATE GARCIA CNP Address: [address] [place] [address] When:1 to 2 weeks [facility] [place] 05-18-2022 Evaluation + Plan noteExtracted from: Title:ED Note Author:Nirav BILLY, Andrew Pradhan te:12/25/21 Facial cellulitis (L03.211: Cellulitis of face) Orders: cephalexin, 500 mg = 1 cap(s), Oral, QID, X 7 day(s), # 28 cap(s), Refills(s) 0, Pharmacy: [facility], 183, cm, 12/25/21 8:14:00 EDT, Height/Length Dosing, 125, kg, 12/25/21 8:14:00 EDT, Weight Dosing [facility] Hospital Discharge instructions Patient Education 12/25/2021 08:36:27 Cellulitis, Adult, Cueg-vc-Zeay Cellulitis, Adult Cellulitis is a skin infection. [...] Follow these instructions at home: Medicines Take hvjx-rhv-fdoafdw and prescription medicines only as told by [...] 01/12/2009 Document Revised: 12/16/2018 Document Reviewed: 12/16/2018 [employer] Patient Education 2020 Gencia. Follow Up Care 12/25/2021 08:09:26 With:Nino Turner Address: [address] [place], [place] [address]- Business (1) When:12/28/2021 08:29:01 Comments:Follow-up with your primary care provider in 3 to 5 days. The cellulitis should not increase in size, and if it does please report back to emergency department for further evaluation. If symptoms worsen, new symptoms arise, or symptoms not improve please report back to emergency department immediately. Take antibiotic as prescribed. [facility]ments Appointment Date:02/24/2022 01:00:00 PM Scheduled Provider:KATE GARCIA CNP Location:[facility] Appointment Type:[facility] Evaluation + Plan note Future Appointments Appointment Date:11/17/2023 05:40:00 PM Scheduled Provider:Ford Bauman DO Location:[facility] Appointment Type:[facility] Evaluation + Plan note Future Appointments Appointment Date:01/12/2024 07:40:00 AM Scheduled Provider:Ford Bauman DO Location:[facility] Appointment Type:[facility] Evaluation + Plan note Future Appointments Appointment Date:01/28/2024 07:40:00 AM Scheduled Provider:Ford Bauman DO Location:[facility] Appointment Type:[facility] Evaluation + Plan note Future Appointments Appointment Date:04/25/2024 07:40:00 AM Scheduled Provider:Ford Bauman DO Location:[facility] Appointment Type:[facility] Hospital course Narrative No data available for this section [facility] No data available for this section [facility] Progress note No data available for this section [facility] Summary Purpose Family History No Family History [...] content) Personnel Name: RADHA TERESAKATE Johnson Address: [address] [place] [address] Personnel Name: RADHA TERESAKATE Johnson Address: [address] [place] [address] Personnel Name: RADHA TERESALIBORIOMARQUIS Ornelas Address: Address: [address] [place] [address] [place] Personnel Name: FARIHA JAY Personnel Name: Ankur Faria DO Address: Address: [address] [place] [address] Personnel Name: Ankur Faria DO Address: Address: [address] [place] [address] Personnel Name: Ankur Faria DO Address: Address: [address] [facility] [address] [place] [address] Personnel Name: Ford Bauman DO Address: Address: [address] [place] [address]- [place] Personnel Name: Ford Bauman DO Address: Address: [address] [place] [address]- [place] Personnel Name: Ford Bauman DO Address: Address: [address] [place] [address]- [place] Personnel Name: Ford Bauman DO Address: Address: [address] [place] [address]- [place] Personnel Name: Ford Bauman DO Address: Address: [address] [place] [address]- [place] Personnel Name: Ford Bauman DO Address: Address: [address] [place] [address]- [place] Personnel Name: Ford Bauman DO Address: Address: [address] [place] [address]- [place] Personnel Name: Ford Bauman DO Address: Address: [address] [place] [address]- [place] Personnel Name: Ford Bauman DO Address: Address: [address] [place] [address]- [place] (unrecognized sect ion and content) No [...] section and content) DATE CREATED AUTHOR 09/12/2022 [facility] DATE CREATED AUTHOR AUTHOR'S ORGANIZ ATION 01/07/2024 [facility] DATE CREATED AUTHOR AUTHOR'S ORGANIZ ATION 01/08/2024 [facility] DATE CREATED AUTHOR AUTHOR'S ORGANIZ ATION 01/10/2024 [facility] DATE CREATED AUTHOR AUTHOR'S ORGANIZ ATION 01/11/2024 [facility] DATE CREATED AUTHOR AUTHOR'S ORGANIZ ATION 01/27/2024 [facility] DATE CREATED AUTHOR AUTHOR'S SHLOMO SAINZ 04/26/2024 [facility] FOR RECORDS PERTAINING TO PATIENTS WHO ARE [...] BE BASED ON THE PRIMARY CLINICAL RECORDS. [facility] [employer] [facility]. provides no warranty or guarantee of the accuracy or completeness of information in this document."
[2024-05-31 20:00] VITALS: BP 170/84; PULSE 78; TEMP 36.6; O2SAT 96; BMI 31.9
--- NOTE | 2024-05-31 20:10 | XR_ITS ---
The [address] [address] Patient Name: MAO ESCOBEDO MRN: [id number] date: 1975 Sex: M Assigned Patient Location: ER Current Patient Location: ED.MAIN Accession/Order Number: [id number] Exam Date: 05/31/2024 20:08 Report Date: 05/31/2024 21:34 At the request of: SHOBHA ALCALA Procedure: XR hand LT min 3V EXAM: XR hand LT min 3V , 05/31/2024 HISTORY: hit hand with sledge hammer COMPARISON: None. TECHNIQUE: X-rays of the left hand, 3 views FINDINGS: Comminuted fracture of the distal phalanx of the left thumb. The remaining unremarkable. Mild soft tissue swelling. XR/XR hand LT min 3V IMPRESSION: Comminuted fracture of the distal phalanx, left thumb. Electronically authenticated by: KATY MENDIOLA Date: 05/31/2024 21:34
--- NOTE | 2024-05-31 20:57 | ED_ITS ---
HPI HPI - Extremity Injury (Upper) General Chief Complaint: Extremity Injury, Upper Stated Complaint: Lower Injury Time Seen by Provider: 05/31/24 20:06 Source: patient Mode of arrival: walk-in Limitations: no limitations History of Present Illness HPI narrative: Patient is a 48-year-old male who presents to the emergency department for evaluation of left thumb pain. He states earlier work, approximately 6 hours ago he hit his thumb with a sledgehammer. He had no other associated injuries. He is right-hand dominant. He sustained a small abrasion over the dorsum of the thumb. He took ibuprofen several hours ago. Related Data Home Medications ?Medication ?Instructions ?Recorded ?Confirmed phentermine 37.5 mg tablet 37.5 mg PO DAILY 05/20/24 05/31/24 varenicline 1 mg tablet mg DAILY 05/20/24 varenicline 1 mg tablet (Chantix) 1 mg PO BID 05/31/24 05/31/24 Previous Rx's ?Medication ?Instructions ?Recorded azithromycin 250 mg tablet See Rx Instructions PO .COMPLEX #6 05/20/24 (Zithromax Z-Kris) tabs cephalexin 500 mg capsule 500 mg PO Q8H 7 days #21 caps 05/31/24 oxycodone-acetaminophen 5 mg-325 1 tab PO Q6H PRN pain 3 days #12 05/31/24 mg tablet (Percocet) tabs Allergies Allergy/AdvReac Type Severity Reaction Status Date / Time No Known Drug Allergies Allergy Verified 05/31/24 20:03 Opioid HPI Opioid Management Most Recent Pain and Opioid Data: Last Pain Scale 9 06/02/23 21:10 06/02/23 Review of Systems ROS Constitutional Denies: fever or chills Cardiovascular Denies: chest pain Respiratory Denies: shortness of breath Gastrointestinal Denies: nausea or vomiting Musculoskeletal Reports: extremity pain; Denies: back pain or neck pain Integumentary/Breast Denies: rash Neurological Denies: numbness in extremities or weakness in extremities Hematologic/Lymphatic Denies: easy bruising or easy bleeding PFSH PFSH Social History Smoking status: Current every day smoker Little interest or pleasure in doing things: not at all Feeling down, depressed, or hopeless: not at all Exam Narrative Exam Narrative: Gen.: Awake, alert, in no distress Head: Normocephalic, atraumatic ENT: Moist mucous membranes Respiratory: No respiratory distress Extremities: Diffuse tenderness and swelling over the distal left thumb with minimal subungual hematoma noted at the base of the fingernail. There is no large subungual hematoma, fingernail injury or obvious deformity. Limited flexion and extension at the IP joint due to pain. Small abrasion noted over the dorsum of the distal phalanx. No large lacerations or active bleeding Psych: Normal mood and affect Neuro: No focal neuro deficit Skin: Warm, dry Constitutional Vital Signs, click to edit/add: Last Vital Signs Temp 97.8 F 05/31/24 20:00 Pulse 78 05/31/24 20:00 Resp 20 05/31/24 20:00 BP 170/84 H 05/31/24 20:00 Pulse Ox 96 05/31/24 20:00 O2 Del Method Room Air 05/31/24 20:00 Course Vital Signs Vital signs: Vital Signs Temperature 97.8 F 05/31/24 20:00 Pulse Rate 78 05/31/24 20:00 Respiratory Rate 20 05/31/24 20:00 Blood Pressure 170/84 H 05/31/24 20:00 Pulse Oximetry 96 05/31/24 20:00 Oxygen Delivery Method Room Air 05/31/24 20:00 Temperature 97.8 F 05/31/24 20:00 Pulse Rate 78 05/31/24 20:00 Respiratory Rate 20 05/31/24 20:00 Blood Pressure 170/84 H 05/31/24 20:00 Pulse Oximetry 96 05/31/24 20:00 Oxygen Delivery Method Room Air 05/31/24 20:00 MDM - Extremity Injury (Upper) MDM Narrative Medical decision making narrative: X-rays of the hand showed tuft fracture of the left distal phalanx of the thumb. Patient placed in a finger splint. Last tetanus in 2019. He was given pain medication, prescribed pain medication and antibiotic for home. He is neurovascularly intact at discharge. Follow-up orthopedics and return to the ER if symptoms change or worsen SHARED APC VISIT, PHYSICIAN ATTESTATION: Daju-rr-ynmf I performed a substantive part of the MDM during the patient?s E/M visit. I personally evaluated and examined the patient. I personally made or approved the documented management plan and acknowledge its risk of complications. Medical Records Attestation: I reviewed the patient's medical records. Discharge Plan Discharge Chief Complaint: Extremity Injury, Upper Clinical Impression: Open fracture of tuft of distal phalanx of left thumb Patient Disposition: Home, Self-Care Time of Disposition Decision: 21:01 Condition: Good Prescriptions / Home Meds: New oxycodone-acetaminophen [Percocet] 5-325 mg tablet 1 tab PO Q6H PRN (Reason: pain) 3 Days Qty: 12 0RF Rx Instructions: M79.642 cephalexin 500 mg capsule 500 mg PO Q8H 7 Days Qty: 21 0RF No Action phentermine 37.5 mg tablet 37.5 mg PO DAILY varenicline 1 mg tablet DAILY azithromycin [Zithromax Z-Kris] 250 mg tablet See Rx Instructions .ROUTE .COMPLEX Qty: 6 0RF Rx Instructions: For 250 mg dose pack: take 500 mg today (day 1), then 250 mg for 4 days (days 2-5) varenicline [Chantix] 1 mg tablet 1 mg PO BID Print Language: Tristanian Instructions: Thumb Fracture (ED) Referrals: Ford Bauman DO [Primary Care Provider] - 1 week Jonnie Antunez MD [Physician] - As soon as possible
[2024-05-31] MEDS: OXYCODONE HCL/ACETAMINOPHEN 5MG/325MG 1 TAB PO ×2 (21:20→21:47)
== END 2024-05-31 21:57 | disposition home or self-care (01) ==
PROVIDERS: Emergency Provider Emergency Medicine; PCP Family Medicine
DX: S62.522A Displaced fracture of distal phalanx of left thumb, initial encounter for closed fracture (principal); W20.8XXA Other cause of strike by thrown, projected or falling object, initial encounter; F17.200 Nicotine dependence, unspecified, uncomplicated
CPT/HCPCS: 29130; 73130; 99284

== ENCOUNTER 2025-06-14 22:05 | Emergency (ER) | payer OTHER, SELFPAY ==
--- OUTSIDE RECORDS SUMMARY | 2023-12-23 11:00 | XMS_ITS ---
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 Role Phone Matt Byers Primary Care Provider REASON FOR VISIT PRIOR RADHA PT Encounters Encounter Location Date Provider Diagnosis [place] [address] [place] [address] 2023 Matt Byers Plan Of Treatment No Information Progress Notes * TREMAINE ESCOBEDOOB:1975 (49 yo M)Acc No.[id number]:12/23/2023 F/U - Patient Patient: MAO MCMILLAN :?POLLY Huerta-SDOB:1975???Age:48 Y ???Sex:MaleDate:4Phone:[phone]:[facility], [place], [id number] Subjective: * Chief Complaints: * P RIOR RADHA PT Care Plan Details* * Electronic signature of RAAD Huerta, [id number] on 06/14/2025 at 10:28 PM ESTSign off status: Pending * Provider: RAAD Null Date: 0 12/23/2023 Generated for Printing/Faxing/eTransmitting on:?06/14/2025 10:28 PM EST
--- OUTSIDE RECORDS SUMMARY | 2024-01-20 11:00 | XMS_ITS ---
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 Role Phone Matt Byers Primary Care Provider Encounters Encounter Location Date Provider Diagnosis [facility] [address] [place] [address] 2023 Matt Byers Plan Of Treatment No Information Progress Notes * TREMAINE ESCOBEDOOB:1975 (49 yo M)Acc No.[id number]:01/20/2024 F/U - Patient Patient: MAO MCMILLAN :?POLLY Huerta-SDOB:1975???Age:48 Y ???Sex:MaleDate:01/20/2024hone:[phone]:[address] [place] [address] [address] [facility] [address], [place], [id number] Billing Information: * Procedure Codes: Care Plan Details* * Electronic signature of RAAD Huerta, [id number] on 06/14/2025 at 10:30 PM ESTSign off status: Pending * Provider: RAAD Null Date: 0 01/20/2024 Generated for Printing/Faxing/eTransmitting on:?06/14/2025 10:30 PM EST
--- OUTSIDE RECORDS SUMMARY | 2024-06-06 08:20 | XMS_ITS ---
Author Organization [facility] Address [address] [place] [address] Care Team Providers Care Svp Marketing Name Role Phone Huy Saman Unavailable [phone] Self, Referral Unavailable Unavailable REASON FOR VISIT LEFT HAND/THUMB FRACTURE Encounters Encounter Location Date Provider Diagnosis [facility] [address] [place] [address] [place] [address] 06/06/2024 Saman Son Plan Of Treatment No Information Progress Notes * MAO ESCOBEDO RDOB:[birth year] (49 yo M)Acc No.[id number]:06/06/2024 Patient:?MAO ESCOBEDO :?Saman Son DODOB:1975???Age:48 Y ???Sex:MaleDate:4Phone:[phone]:[address] [place] [address] [address], [facility] Subjective: * Chief Complaints: * 1 . LEFT HAND/THUMB FRACTURE. * Medical History: Objective: * Vitals: Assessment: Plan: * Treatment: Forms: * Images: * Electronic signature of Saman Son DO on 06/14/2025 at 10:29 PM ESTSign off status: Pending * Provider: Angel Son DO Date: Generated for Printing/Faxing/eTransmitting on:?06/14/2025 10:29 PM EST
--- OUTSIDE RECORDS SUMMARY | 2024-07-19 03:15 | XMS_ITS ---
Author Organization [facility] es Address [address] [place] [address] Care Team Providers Care Sinker Puller Name Role Phone Matt Byers Primary Care Provider [phone] REASON FOR VISIT BH2 week f/u Encounters Encounter Location Date Provider Diagnosis [facility] [address] [place] [address] 2023 Matt Byers Plan Of Treatment No Information Progress Notes * TREMAINE ESCOBEDOOB:1975 (49 yo M)Acc No.[id number]:07/19/2024 F/U - Patient Patient: MAO MCMILLAN :?POLLY Huerta-SDOB:1975???Age:48 Y ???Sex:MaleDate:4Phone:[phone]:[facility] [address], [place], [id number] Subjective: * Chief Complaints: * B H2 week f/u Care Plan Details* * Electronic signature of RAAD Huerta, [id number] on 06/14/2025 at 10:29 PM ESTSign off status: Pending * Provider: RAAD Null Date: 1 09/19/2023 Generated for Printing/Faxing/eTransmitting on:?06/14/2025 10:29 PM EST
--- OUTSIDE RECORDS SUMMARY | 2024-07-26 06:15 | XMS_ITS ---
Author Organization [facility] es Address [address] [place] [address] Care Team Providers Care Statistical Engineer Name Role Phone Matt Byers Primary Care Provider REASON FOR VISIT r/s from 07/19 Encounters Encounter Location Date Provider Diagnosis [address] [place] [address] [place] [address] 2023 Matt Byers Plan Of Treatment No Information Progress Notes * TREMAINE ESCOBEDOOB:1975 (49 yo M)Acc No.[id number]:07/26/2024 F/U - Patient Patient: MAO MCMILLAN :?POLLY Huerta-SDOB:1975???Age:48 Y ???Sex:MaleDate:4Phone:[phone]:[facility], [place], [id number] Subjective: * Chief Complaints: * R /s from 07/19 Care Plan Details* * Electronic signature of RAAD Huerta, [id number] on 06/14/2025 at 10:28 PM ESTSign off status: Pending * Provider: RAAD Null Date: 1 09/26/2023 Generated for Printing/Faxing/eTransmitting on:?06/14/2025 10:28 PM EST
--- OUTSIDE RECORDS SUMMARY | 2025-01-27 03:00 | XMS_ITS ---
Author Organization [facility] Address [address] [place] [address] Care Team Providers Care Security System Sales Consultant Name Role Phone Matt Byers Primary Care Provider REASON FOR VISIT RE ESTABLISH CARE PERSON LIFE FAMILY ISSUES Encounters Encounter Location Date Provider Diagnosis [facility] [address] [place] [address] 2024 Matt Byers Plan Of Treatment No Information Progress Notes * TREMAINE ESCOBEDOOB:1975 (49 yo M)Acc No.[id number]:01/27/2025 F/U - Patient Patient: MAO MCMILLAN :?POLLY Huerta-SDOB:1975???Age:49 Y ???Sex:MaleDate:01/27/2025Phone:[phone]:[facility], [place], [id number] Subjective: * Chief Complaints: * R E ESTABLISH CARE PERSON LIFE FAMILY ISSUES Billing Information: * Procedure Codes: Care Plan Details* * Electronic signature of RAAD Huerta, [id number] on 06/14/2025 at 10:29 PM ESTSign off status: Pending * Provider: RAAD Null Date: 0 01/27/2025 Generated for Printing/Faxing/eTransmitting on:?06/14/2025 10:29 PM EST
[2025-06-14 22:23] VITALS: BP 148/83; PULSE 84; TEMP 36.7; O2SAT 98; BMI 35.3
--- OUTSIDE RECORDS SUMMARY | 2025-06-14 22:27 | XMS_ITS | Clinical Summary ---
Author Organization [facility] Address [address] [facility] [place] [address] Care Team Providers Care Power Plant Engineer Name Role Phone Ford Bauman MD Primary Care Provider [phone] Allergies No known active allergies Medications MedicationSigDispense QuantityRefillsLast FilledStart DateEnd DateStatus phentermine (Adipex-P) 37.5 MG tablet Take 37.5 mg by mouth in the morning. Take before meals.Active varenicline (Chantix) 1 MG tablet Take 1/2 tablet by mouth daily for 2 weeks, then take 1 tablet twice daily with full glass of water05/25/2024ctive ibuprofen 200 MG tablet Take by mouthActive acetaminophen (Tylenol) 500 MG tablet Take by mouthActive sildenafil (Viagra) 25 MG tablet Take 25 mg by mouth04/07/2024ctive Active Problems No known active problems Social History Tobacco UseTypesPacks/DayYears UsedDateSmoking Tobacco: Every DayCigarettes Smokeless Tobacco: Never Tobacco Cessation:Ready to Q uit: Not Asked; Counseling Given: Not Answered Alcohol UseStandard Drinks/WeekCommentsNever0 (1 standard drink = 0.6 oz pure alcohol)Sex and Gender InformationValueDate RecordedSex Assigned at BirthNot on fileLegal CgvIcvs6710/22/2022 7:28 PM EDTGender IdentityNot on fileSexual OrientationNot on file Last Filed Vital Signs Vital SignReadingTime TakenCommentsBlood Gfpqtqat838/8807 12:00 PM EDT Pulse--Lopjzscseqn50.7 ??C (98.1 ??F)07/18/2024 8:21 AM ESTRespiratory Rate-- Oxygen Saturation--Inhaled Oxygen Concentration--Euuhxc284 kg (255 lb)07/18/2024 8:21 AM KVVRoccii674.3 cm (5' 11 )07/18/2024 8:21 AM ESTBody Mass Index35.57 07/18/2024 8:21 AM EST Plan of Treatment Not on file Insurance Care Teams Team MemberRelationshipSpecialtyStart DateEnd Date Ford Bauman MD [address] [place] [address] PCP - GeneralFamily Vsmeavag90/28/24
--- OUTSIDE RECORDS SUMMARY | 2025-06-14 22:27 | XMS_ITS | Patient Health Record ---
Author Organization [facility] Address [address] [place] [address] Care Team Providers Care Molded Goods Operator Name Role Phone Saman Son Unavailable [phone] Self, Referral Unavailable Unavailable Reason For Referral No Information Plan Of Treatment No Information Insurance Providers Payer Name Payer Address Payer Phone Subscriber Number Group Number Insured Name Patient Relationship to Insured Coverage Start Date Coverage End Date [facility] [address] [place] [address] [id number] MAO ESCOBEDO Self - patient is the insured
--- OUTSIDE RECORDS SUMMARY | 2025-06-14 22:27 | XMS_ITS | CCD ---
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 Ofelia Tate RN Date Enrolled: January 11, 2024 Assigned Primary Personnel: Tod ALAS, Zeina Fernandez Assigned Secondary Personnel: Ofelia Tate RN; Anahi ALAS, Sarah Case Physician: Ford Bauman DO Problems Ongoing [...] Doing pretty good. ALESSANDRO drain was d/jose on01/13/24. Incisions are all healing; denies any S/S [...] #1- see case summary note. Created By: Mayte Tate RNMercy Health St. Vincent Medical CenterProvider Letteron [id number] Letter January 18, 2024 MAO ESCOBEDO [address] [place] [address] : 1975 To Whom It May Concern, Please excuse above patient from work. Date of Illness: From: 01/07/2024 To: 01/19/2024 May Return to Work On:01/20/2024 Restrictions: _ Comments: _ Sincerely, YISEL Jacobsen [facility] CenterAmbulatory Visit Summaryon [id number] Visit Summary MAO ESCOBEDO :1975 Visit Date:01/12/2024 Ambulatory Visit Instructions Your Diagnosis BMI 32.0-32.9,adult Your Care Team Attending Physician - Ford Bauman DO Primary Care Physician - oFrd Bauman DO This Is Your Medications List [...] AM EDT With: Ford Bauman DO Where: [facility] Medicine [facility] Medicine Office/Clinic Noteon 01-03-0022Reqwvw Medicine Office/Clinic NoteHPI Staff Patient here for hospitalization f/u with TCM TCM: Hospital: [facility] Admission date: 01/06/24 Discharge date: 01/08/24 Symptoms [...] pain:No Tremors:No Headaches:No Heart fluttering:No Blurred Vision:No [place]: cologuard justs needs to complete it Flu: declines phq/ht182 History of Present Illness Patient presents today for hospital followup. Hospital location: [facility] Admission Date: 01/06/2024 Discharge Date: 01/08/2024 Reviewed Records: ER summary, discharge summary, consultation notes, history and physical Summary: Patient presented to the [facility] ER on date above for acute onset [...] well nourished, in no acute distress Head: Normocephalic/atraumatic Eyes: Pupils equal, round, and reactive to [...] with wound sites or drains. Recommended he followwith his surgeon. Discussed his diet changes and [...] medical support in addressing this problem. Your BMIand weight management will be followed at subsequent visits. Follow-up With When Contact Information Ford Bamuan DO, RUKHSANA Within 2 weeks [address] [place] [phone]- Additional Instructions: 2 WEEKS Problem List/Past Medical [...] tab(s), Oral, TID, PRN, (more content not included)...[facility] HospitalComment on above:Result Comment: Electronically Signed By: Ford Bauman DO\.br\Date and Time Signed: 01/12/24 08:43 EDTIntraOperative Documentson [id number] Documents [id number] HospitalPopsouth [facility] emergency department Health [id number] HealthCase Information Case Priority: None Programs: -- Referral Source: Hadoop Engineer Referral Reason: Care coordination Case Type: Transition [...] name, street address and date of verified Program Enrollment Provides verbal consent for enrollment Goals and Interventions Care Plan Progress Note Admit Date: 01/06/24 Date of Discharge: 01/08/24 Follow-up appointment scheduled? 01/12/24 @ 07:40 Did you understand your discharge instructions? Yes Are you able to follow them? yes Did you receive new medications? Yes: Augmentin 875mg - 1 tab q 12 hours x 3 days, Colace 100mg - 1capsule 2x/day x 10 days, Senna 8.6mg at bedtime daily x 10 days, and oxycodone 5 mg = 1 tablet q 6hr prn for pain 8-10 x 12 tablets. [...] pretty good. Pain has been manageable with medicationsalthough pain has been the worst at bedtime 5-6/10. Has 4 incisions and has a ALESSANDRO drain. Currently, ALESSANDRO is draining pinkish-clear fluid. Stated on 01/10/24 the drainage changed color and looked like bileso went to ED as was instructed and was assessed and eventually sent home. Stated drainage has beenfine since. Denies any s/s of infection at [...] #1- see case summary note. Created By: Bernie Tate RNSumma [facility] Note-Physicianon [id number] Note-PhysicianPatient: MAO ESCOBEDO Age: 48 years Sex: Male : 1975 Associated Diagnoses: None Author: Alberto Martinez Jr., DO Postoperative Information Postoperative disposition: Postoperative disposition: Home. Optimetrix number: Optimetrix number [id number]. Anesthetic utilized: General. Physical Examination Vital Signs [...] to Ambulatory Surgery Unit, and To home ).[facility] Comment on above:Result Comment: Electronically Signed By: Alberto Martinez Jr., DO\.br\Date and Time Signed: 01/11/24 07:11 EDTCBC w/ Auto Diffon 01-10-2024 Basophils/100 WBC (Bld)0.5 %Normal0.0-2.0[facility] HospitalComment on above:Performed By: #### [id number] #### [facility] [address], [place] [address]Rfbyfdzhp/Leukocytes Auto (Bld) [Pure # fraction]0.1 E9/LNormal 0.0-0.2FC[facility]view HospitalComment on above:Performed By: #### [id number] #### [facility] [address], [place] [address]Qhlijrixskb (Bld) [#/Vol]0.2 E9/LNormal0.0-0.5FCleveland Clinic Fairview HospitalComment on above:Performed By: #### [id number] #### [facility] [address], [place] [address]Osppecdjxzd/100 WBC (Bld)2.2 %Normal0.0-8.0[facility] HospitalComment on above:Performed By: #### [id number] #### [facility] [address], [place] [address]Ebxdjsrkhoh distribution width (RBC) [Ratio]13.3 %Normal 10.9-14.2FCleveland Clinic Fairview HospitalComment on above:Performed By: #### [id number] #### [facility] [address] [place] [address]Fhtkxpahee (Bld) [Volume fraction]46.5 %Vudxfd72.7-49.0[facility] HospitalComment on above:Performed By: #### [id number] #### [facility] [address] [place] [address]Nguauybrac (Bld) [Mass/Vol]15.6 g/fWOhzwoh52.5-17.5FCleveland Clinic Fairview HospitalComment on above:Performed By: #### [id number] #### [facility] [address] [place] [address] 280[address]Hkcgqzpmxha (Bld) [#/Vol]2.1 E9/LNormal1.0-4.0[facility] HospitalComment on above:Performed By: #### [id number] #### [facility] [address] [place] [address]Toxaoenectd/100 WBC (Bld)20.7 %Qksiri78.0-50.0[facility] HospitalComment on above:Performed By: #### [id number] #### [facility] [address] [place] [address]EQX (RBC) [Entitic mass]29.6 ofEipuff62.0-34.0[facility] HospitalComment on above:Performed By: #### [id number] #### [facility] [address] [place] [address] 70767DKXC (RBC) [Mass/Vol]33.5 g/tRAyfpuy31.4-36.0[facility] HospitalComment on above:Performed By: #### [id number] #### [facility] [address] [place] [address]CAL (RBC) [Entitic vol]88.3 pGArhdyr10.0-100.0[facility] HospitalComment on above:Performed By: #### [id number] #### [facility] [address] [place] [address] 488[address]Kczphseyj (Bld) [#/Vol]0.5 E9/LNormal0.2-1.0[facility] HospitalComment on above:Performed By: #### [id number] #### [facility] [address] [place] [address] 290[address]Bhmfibeggna (Bld) [#/Vol]7.4 E9/LNormal2.0-7.5FCleveland Clinic Fairview HospitalComment on above:Performed By: #### [id number] #### [facility] [address] [place] [address]Fumcbzfnjsb/100 WBC (Bld)71.9 %Pgjxki39.0-75.0[facility] HospitalComment on above:Performed By: #### [id number] #### [facility] [address] [place] [address]13[address]Zatvkqor mean volume (Bld) [Entitic vol]7.5 fLNormal6.4-10.8 [facility] HospitalComment on above:Performed By: #### [id number] #### [facility] [address] [place] [address] 93[address]Crlemposx (Bld) [#/Vol]330.0 E9/LKtjjbr214.0-500.0[facility] HospitalComment on above:Performed By: #### [id number] #### [facility] [address] [place] [address] 42054BZY (Bld) [#/Vol]5.3 E12/LNormal4.3-5.9[facility] HospitalComment on above:Performed By: #### [id number] #### [facility] [address], [place] [address]BYJ corrected for nucl RBC Auto (Bld) [#/Vol]10.3 E9/LNormal 4.0-11.0[facility] HospitalComment on above:Performed By: #### [id number] #### [facility] [address], [place] [address]KWAPQRNQUWyzwhos By: SYSTEM SYSTEM on 55-97-8967Lgialvj [Mass/Vol]3.9 g/dLNormal3.3 - 5.0 gm/dLRemisol ChemAlbumin/Globulin [Mass ratio] 1.3 {ratio}Normal1.1 - 2.2Remisol ChemALP [Catalytic activity/Vol]65 [iU]/d Uojqik77 - 98 Int._Unit/LRemisol ChemALT No additional P-5'-P [Catalytic activity/Vol]29 [iU]/dNormal6 - 46 Int._Unit/LRemisol ChemAnion gap [Moles/Vol] 11 mmol/LNormal6 - 16 mEq/LRemisol ChemAST [Catalytic activity/Vol]21 [iU]/d Normal5 - 43 Int._Unit/LRemisol ChemBilirubin [Mass/Vol]0.4 mg/dLNormal0.0 - 1.1 mg/dLRemisol ChemCalcium [Mass/Vol]9.0 mg/dLNormal8.9 - 11.1 mg/dLRemisol Chem Chloride [Moles/Vol]100 mmol/WGla273 - 111 mmol/LRemisol ChemCO2 [Moles/Vol]31 mmol/QWdicst60 - 31 mmol/LRemisol ChemCreatinine [Mass/Vol]1.0 mg/dLNormal0.5 - 1.3 mg/dLRemisol JnuguQTC28 mL/min/1.73 g8Viqvbv>=59mL/min/1.73 v8Snbzyoa Chem Globulin (S) [Mass/Vol]2.9 g/dLNormal1.4 - 4.0 gm/dLRemisol ChemGlucose [Mass/Vol]94 mg/eMDaltry89 - 199 mg/dLRemisol ChemPotassium [Moles/Vol]3.8 mmol/LNormal3.5 - 5.3 mmol/LRemisol ChemProtein [Mass/Vol]6.8 g/dLNormal6.0 - 7.8 gm/dLRemisol ChemSodium [Moles/Vol]138 mmol/SBeniky593 - 145 mmol/LRemisol ChemUrea nitrogen [Mass/Vol]12 mg/dLNormal5 - 21 mg/dLRemisol ChemUrea nitrogen/Creatinine [Mass ratio]12 mg/wpIamelq83 - 20Remisol ChemCMPon 31-21-1296Blnxygb [Mass/Vol]3.9 g/dLNormal3.3-5.0[facility] Comment on above:Performed By: #### [id number] #### [facility] [address], [place] [address]Uwchlkl/Globulin (S) [Mass conc ratio]1.9Mvwvvw2.1-2.2FC[facility] HospitalComment on above:Performed By: #### [id number] #### [facility] [address], [place] [address]DDS [Catalytic activity/Vol]65 Int._Unit/KLzdrmn10-34HifrpzOhiohealth Berger HospitalComment on above:Performed By: #### [id number] #### [facility] [address], [place] [address]DXD No additional P-5'-P [Catalytic activity/Vol]29 Int._Unit/L Normal6-46[facility] HospitalComment on above:Performed By: #### [id number] #### [facility] [address], [place] [address]Dydan gap [Moles/Vol]11 mmol/LNormal6-16[facility] HospitalComment on above:Performed By: #### [id number] #### [facility] [address], [place] [address]CNU [Catalytic activity/Vol]21 Int._Unit/LNormal5-43[facility] HospitalComment on above:Performed By: #### [id number] #### [facility] [address], [place] [address]Jyjbimkvd [Mass/Vol]0.4 mg/dLNormal0.0-1.1FC[facility] HospitalComment on above:Performed By: #### [id number] #### [facility] [address], [place] [address]Thfnlnn [Mass/Vol]9.0 mg/dLNormal8.9-11.1FC[facility] Clinic Fairview HospitalComment on above:Performed By: #### [id number] #### [facility] [address], [place] [address]Wfqdqdec [Moles/Vol]100 mmol/EDem952-275KcujrrOhiohealth Berger HospitalComment on above:Performed By: #### [id number] #### [facility] [address], [place] [address]DN3 [Moles/Vol]31 mmol/ZUjcshw48-44GoarmzOhiohealth Berger Hospital Comment on above:Performed By: #### [id number] #### [facility] [address], [place] [address]Yapkgxvvhw [Mass/Vol]1.0 mg/dLNormal0.5-1.3FC[facility] Fairview HospitalComment on above:Performed By: #### [id number] #### [facility] [address], [place] [address]Faqurxon (S) [Mass/Vol]2.9 g/dLNormal1.4-4.0[facility] HospitalComment on above:Performed By: #### [id number] #### [facility] [address], [place] [address]Jzlipyk [Mass/Vol]94 mg/lGMeuvlb34-324VnlphqOhiohealth Berger HospitalComment on above:Performed By: #### [id number] #### [facility] [address], [place] [address]Ttwgbginf [Moles/Vol]3.8 mmol/LNormal3.5-5.3FC[facility] Fairview HospitalComment on above:Performed By: #### [id number] #### [facility] [address], [place] [address]Cibaemn [Mass/Vol]6.8 g/dLNormal6.0-7.8[facility] HospitalComment on above:Performed By: #### [id number] #### [facility] [address], [place] [address]Uhbswr [Moles/Vol]138 mmol/KYimczd939-162DuxwxvOhiohealth Berger HospitalComment on above:Performed By: #### [id number] #### [facility] [address], [place] [address]Bavv nitrogen [Mass/Vol]12 mg/dLNormal5-21[facility] HospitalComment on above:Performed By: #### [id number] #### [facility] [address] [place] [address]Zudl nitrogen/Creatinine [Mass ratio]12 No QojhoNoszwf29-96 [facility] HospitalComment on above:Performed By: #### [id number] #### [facility] [address] [place] [address]Ktumqix for Treatmenton 70-73-2820Zvqwjig for Treatment [id number] HospitalDischarge Instructionson 70-75-5957Zbrggeima Instructions [id number] Health Hamilton Clinical Summaryon [id number] Clinical Summary [address] [address] ED Clinical Summary Person Information Name: MAO ESCOBEDO [facility] Age: 48 Years : 1975 Sex: Male Language: Vincentian PCP: Ford Bauman DO Marital Status: Single Phone: [phone] Visit Id: Visit Reason: Medical problem - [...] 01/10/2024 02:02:51 01/10/2024 02:02:51 01/10/2024 02:02:51 ADDRESS: [address] [facility] [id number] PHYS DOC NOTES: MEDICAL INFORMATION: Prescriptions Given: Medications to Continue with No Changes Other Medications acetaminophen (acetaminophen 325 mg Tab) 2 Tablets By Mouth every 6 hours. amoxicillin-clavulanate (Augmentin 875 mg oral tablet) 1 Tablets [...] INFORMATION: Instructions: Minimally Invasive Cholecystectomy, Care After, Pchq-me-Geke Follow up: With: Address: When: Ivette Fierro [facility], [address], [address] [phone] Business (1) In 3 days 01/13/2024 Comments: Please follow-up with general surgery for further evaluation and management. Return to the ED for any new or worsening symptoms. With: Address: When: Ford Bauman [address] [place] [address] Business (1) In 3 days 01/13/2024 DIAGNOSIS: Encounter for recheck of abscess following incision and drainageWilmer Winn Medical CenterED Note-Physicianon [id number] Note-PhysicianBasic Information Time Seen: Paris Brannon DO 01/10/2024 [...] to the right upper abdomen with serosanguineous drainageon examination Extremities: No edema noted in the LE B/L, no tenderness to palpation Neurologic: Alert and oriented, speech clear Skin: No rashes or lesions Psych: Appropriate mood and behavior Medical Decision Making MEDICAL DECISION MAKING Number and Complexity of Problems Differential Diagnosis: [] [facility] Data External documents reviewed: [] My EKG [...] states this is normal postoperative course. She isagreeable with labs however states no indication for CT imaging at this time. Patient's laboratory evaluations unremarkable. Patient is given oxycodone in the ED as he is overdue for 1. Discussed findings with patient he is comfortable with discharge home. He will call surgery on Thursday to scheduleclose follow-up. He will return to the ED [...] Ash In 3 days 01/13/2024 EDT [address], [address] [phone] Business (1) Additional Instructions: Please follow-up with general surgery for further evaluation and management. Return to the ED for any new or worsening symptoms. Ford Bauman In 3 days 01/13/[address] [place] [address]- Business (1) Additional Instructions: Patient Education Minimally Invasive Cholecystectomy, Care After, Mmht-zt-Wrub Problem List/Past Medical History Ongoing BMI 37.0-37.9, [...] Tab, 8.6 mg= 1 (more content not included)...[facility] HospitalComment on above:Result Comment: Electronically Signed By: Paris Brannon DO\.br\Date and Time Signed: 01/10/24 01:58 EDTED Patient Education Noteon 01-67-1927FF Patient Education NoteGastroenterology Minimally Invasive Cholecystectomy, Care After What can [...] these instructions at home: Medicines ? Take xgsi-yjf-qcqbkux and prescription medicines only as told by your doctor. ? If you were prescribed an antibiotic medicine, take it as told by your doctor. Do not stop takingit even if you start to feel better. [...] cannot use soap and water, use hand abrasive mixer. ? Change your bandage. ? Leave stitches [...] of surgery. You may also vomit or feelfullness in the belly. ? Follow your doctor's instructions about medicine, activity restrictions, and caring for your surgery areas. Do not do activities that require a lot of effort. ? Contact a doctor if you have a fever or other signs of infection, such as more redness, swelling,or pain around your incisions. ? Get help right away if you have chest pain, increasing pain in the shoulders, or trouble breathing. This information is not intended to replace advice given to you by your health care provider. Make sure you discuss any questions you have with your health care provider. Document Revised: 01/28/2022 Document Reviewed: 01/28/2022 ElseSpotFodo Patient Education ? 2022 [employer].[facility] ED Patient Summaryon [id number] Patient Summary [place] [id number] Patient Discharge Instructions Person Information Name: MAO ESCOBEDO Age: 48 Years Arrival Date: 01/10/2024 00:23:26 Discharge Diagnosis: Encounter for recheck of abscess following incision and drainage Primary Care Physician: Ford Bauman DO Provider Information Primary Provider: Paris Brannon DO Advanced Labor Arbitrator Hearing Office:None The exam and treatment you received in the Emergency Department were for an urgent problem and are not intended as complete care. It is important that you follow up with a doctor, nurse practitioner,or physician?s assistant manager retail for ongoing care. If your symptoms become worse or you do not improve as expected and you are unable to reach your usual health care provider, you should return to the Emergency Department. We are available 24 hours a day. MAO ESCOBEDO has been given the following list of patient education materials, prescriptions and follow-up instructions: Follow-up Instructions: With: Address: When: Ivette Ash [address], [address], [address] [phone] Business (1) In 3 days 01/13/2024 Comments: Please follow-up with general surgery for further evaluation and management. Return to the ED for any new or worsening symptoms. With: Address: When: Ford Bauman [address] [place] [address] Business (1) In 3 days 01/13/2024 In the event that this physician does not participate in your insurance network, please consult with your insurance company to find a nearby participating provider. Patient Education Materials: Minimally Invasive Cholecystectomy, Care After, Sdko-ql-Rbfd A MESSAGE TO ALL PATIENTS REGARDING OPIOIDS PRESCRIPTION OPIOIDS: WHAT YOU NEED TO KNOW Prescription opioids can be used to help relieve yqpksgau-be-txrmdi pain and are often prescribed following a [...] and have fewer risks and side effects. Optionsmay include: ? Pain relievers such as acetaminophen, [...] unused prescription opioids: Find your community drug take- back program or yourpharmacy mail-back program, or flush them down the toilet, following guidance from (more contentnot included)...[facility] HospitalHEMATOLOGYOrdered By: SYSTEM SYSTEM on 28-90-2702Rgvxxaqgz/100 WBC (Bld)0.5 %Normal0.0 - 2.0 %Remisol HemeBasophils/Leukocytes Auto (Bld) [Pure # fraction]0.1 E9/LNormal0.0 - 0.2 E9/LRemisol HemeEosinophils (Bld) [#/Vol]0.2 E9/LNormal0.0 - 0.5 E9/LRemisol HemeEosinophils/100 WBC (Bld)2.2 %Normal0.0 - 8.0 %Remisol HemeErythrocyte distribution width (RBC) [Ratio]13.3 %Mqftjr26.9 - 14.2 %Remisol HemeHematocrit (Bld) [Volume fraction]46.5 %Yxopah27.7 - 49.0 % Remisol HemeHemoglobin (Bld) [Mass/Vol]15.6 g/nHQjbyow83.5 - 17.5 gm/dLRemisol HemeLymphocytes (Bld) [#/Vol]2.1 E9/LNormal1.0 - 4.0 E9/LRemisol Heme Lymphocytes/100 WBC (Bld)20.7 %Xhknfv19.0 - 50.0 %Remisol HemeMCH (RBC) [Entitic mass]29.6 rlHnkzqi93.0 - 34.0 pgRemisol HemeMCHC (RBC) [Mass/Vol]33.5 g/dL Kocrod81.4 - 36.0 gm/dLRemisol HemeMCV (RBC) [Entitic vol]88.3 mSRebnzz91.0 - 100.0 fLRemisol HemeMonocytes (Bld) [#/Vol]0.5 E9/LNormal0.2 - 1.0 E9/LRemisol HemeMonocytes/100 WBC (Bld)4.7 %Normal4.0 - 14.0 %Remisol HemeNeutrophils (Bld) [#/Vol]7.4 E9/LNormal2.0 - 7.5 E9/LRemisol HemeNeutrophils/100 WBC (Bld)71.9 % Uefwtf89.0 - 75.0 %Remisol HemePlatelet mean volume (Bld) [Entitic vol]7.5 fL Normal6.4 - 10.8 fLRemisol HemePlatelets (Bld) [#/Vol]330.0 E9/JYfzjwa420.0 - 500.0 E9/LRemisol HemeRBC (Bld) [#/Vol]5.3 E12/LNormal4.3 - 5.9 E12/LRemisol HemeWBC corrected for nucl RBC Auto (Bld) [#/Vol]10.3 E9/LNormal4.0 - 11.0 E9/L Remisol HemeeGFRon 83-48-2888pYRZ59 mL/min/1.73 k4Jriowb>=59Ohio[facility] Berger HospitalComment on above:Order Comment: Order added by Discern Expert.Performed By: #### [id number] #### [facility] [address] [place], [place] [address]OADAHAEUXPenowcd By: SYSTEM SYSTEM on 35-78-3157Lhxvllz [Mass/Vol]3.6 g/dLNormal3.3 - 5.0 gm/dLRemisol ChemAlbumin/Globulin [Mass ratio] 1.3 {ratio}Normal1.1 - 2.2Remisol ChemALP [Catalytic activity/Vol]67 [iU]/d Tqxqnz92 - 98 Int._Unit/LRemisol ChemALT No additional P-5'-P [Catalytic activity/Vol]23 [iU]/dNormal6 - 46 Int._Unit/LRemisol ChemAnion gap [Moles/Vol] 12 mmol/LNormal6 - 16 mEq/LRemisol ChemAST [Catalytic activity/Vol]21 [iU]/d Normal5 - 43 Int._Unit/LRemisol ChemBilirubin [Mass/Vol]0.4 mg/dLNormal0.0 - 1.1 mg/dLRemisol ChemBilirubin.direct [Mass/Vol]0.1 mg/dLNormal0.0 - 0.4 mg/dL Remisol ChemBilirubin.indirect [Mass or moles/Vol]0.3 mg/dLNormal0.1 - 0.9 mg/dL Remisol ChemCalcium [Mass/Vol]8.6 mg/dLLow8.9 - 11.1 mg/dLRemisol ChemChloride [Moles/Vol]104 mmol/XLlklju014 - 111 mmol/LRemisol ChemCO2 [Moles/Vol]27 mmol/L Ewikzs20 - 31 mmol/LRemisol ChemCreatinine [Mass/Vol]0.9 mg/dLNormal0.5 - 1.3 mg/dLRemisol LlyacJYR815 mL/min/1.73 l9Vriaqf>=59mL/min/1.73 e2Xtrzryr Chem Globulin (S) [Mass/Vol]2.8 g/dLNormal1.4 - 4.0 gm/dLRemisol ChemGlucose [Mass/Vol]135 mg/eUDqnutd47 - 199 mg/dLRemisol ChemPotassium [Moles/Vol]4.1 mmol/LNormal3.5 - 5.3 mmol/LRemisol ChemProtein [Mass/Vol]6.4 g/dLNormal6.0 - 7.8 gm/dLRemisol ChemSodium [Moles/Vol]139 mmol/ZZsprlf806 - 145 mmol/LRemisol ChemUrea nitrogen [Mass/Vol]9 mg/dLNormal5 - 21 mg/dLRemisol ChemUrea nitrogen/Creatinine [Mass ratio]10 mg/mxQdzder17 - 20Remisol ChemConsent for Anesthesiaon 42-42-7949Yysnfvo for Anesthesia [id number] HospitalDischarge Instructionson 18-31-9773Zdbgrslil Instructions [id number] HospitalDischarge Note-Nursingon 44-65-9914Ojnzeqbga Note-Nursing MAO ESCOBEDO :1975 Visit Date:01/06/2024 Inpatient Discharge Instructions Your Care Team Admitting Physician - Ivette Ash MD Consulting Physician - Ivette Ash MD Reason for Your Visit choilecystitis Your Diagnosis Cholecystitis Abdominal pain Body aches Nausea Tests Performed Culture Fluid -- Results Pending -- Chest AP/Lat CT Abdomen/Pelvis w/ Contrast Please visit your patient portal for your results or contact your primary care physician. This Is Your Medications List acetaminophen (acetaminophen 325 mg Tab) amoxicillin-clavulanate (Augmentin 875 mg oral tablet) cyclobenzaprine (cyclobenzaprine [...] for severe pain. No lifting heavier than 15pounds for 3 to 4 weeks. You may shower tomorrow, no swimming or submerging until incisions are healed. Previously Scheduled Follow-Up Appointments Thursday 7:40 AM EDT With: Ford Bauman DO Where: [facility] Family Medicine [facility] Education Videoon 10-14-2745PizTevz Education VideoYes Managing Pain While You're in the Hospital [facility] Education VideoYes Living With Chronic Pain [facility] Education VideoChronic Pain: Treatments Other Than Medicine Patient [facility] Education VideoPatient Yes Opioids: Know What's SafeC[facility] Education VideoPatient Yes Chronic Pain: How Medicines Can Help You Manage [facility] Education VideoPatient Yes Avoiding Infections in the [facility], IncHEMATOLOGY Ordered By: SYSTEM SYSTEM on 50-56-7638Nzboqlgfa/100 WBC (Bld)0.1 %Normal0.0 - 2.0 %Remisol HemeBasophils/Leukocytes Auto (Bld) [Pure # fraction]0.0 E9/LNormal 0.0 - 0.2 E9/LRemisol HemeEosinophils (Bld) [#/Vol]0.0 E9/LNormal0.0 - 0.5 E9/L Remisol HemeEosinophils/100 WBC (Bld)0.1 %Normal0.0 - 8.0 %Remisol Heme Erythrocyte distribution width (RBC) [Ratio]13.5 %Xtagbt00.9 - 14.2 %Remisol HemeHematocrit (Bld) [Volume fraction]43.2 %Sstlzb32.7 - 49.0 %Remisol Heme Hemoglobin (Bld) [Mass/Vol]14.4 g/kXVfbrev00.5 - 17.5 gm/dLRemisol Heme Lymphocytes (Bld) [#/Vol]1.2 E9/LNormal1.0 - 4.0 E9/LRemisol HemeLymphocytes/100 WBC (Bld)8.1 %Low14.0 - 50.0 %Remisol HemeMCH (RBC) [Entitic mass]29.6 pgNormal 27.0 - 34.0 pgRemisol HemeMCHC (RBC) [Mass/Vol]33.3 g/uXAwijen75.4 - 36.0 gm/dL Remisol HemeMCV (RBC) [Entitic vol]88.8 dRDhhpgj73.0 - 100.0 fLRemisol Heme Monocytes (Bld) [#/Vol]0.8 E9/LNormal0.2 - 1.0 E9/LRemisol HemeMonocytes/100 WBC (Bld)5.3 %Normal4.0 - 14.0 %Remisol HemeNeutrophils (Bld) [#/Vol]12.6 E9/LHigh 2.0 - 7.5 E9/LRemisol HemeNeutrophils/100 WBC (Bld)86.4 %High36.0 - 75.0 % Remisol LzmwAdjmlmaz001.0 E9/FGokavc005.0 - 500.0 E9/LRemisol HemePlatelet mean volume (Bld) [Entitic vol]8.2 fLNormal6.4 - 10.8 fLRemisol HemeRBC (Bld) [#/Vol] 4.9 E12/LNormal4.3 - 5.9 E12/LRemisol HemeWBC corrected for nucl RBC Auto (Bld) [#/Vol]14.5 E9/LHigh4.0 - 11.0 E9/LRemisol HemeInpatient Clinical Summaryon [id number] Clinical Summary [address] [address] Clinical Summary Person Information: Name: MAO ESCOBEDO Age: 48 Years : 1975 Sex: Male PCP: Link DO, Ford C Marital Status: Single Phone: [phone] Race: White Ethnicity: Non- or Language: Vincentian Visit Id: Visit Reason: Body aches; Nausea; Abdominal pain; BODY ACHES, CHILLS, ABD PAIN, BACK PAIN Speciality: Acuity: Enc Type: Observation Med Service: Medical Arrival: 01/06/2024 08:02:41 Discharge: Dispo Type: Admitted as IP to this Hosp Address: [facility] [address] [facility] [id number] Provider Notes: Diagnosis: 1:Cholecystitis Problems Active BMI [...] 2 Tablets By Mouth every 6 hours. amoxicillin-clavulanate (Augmentin 875 mg oral tablet) 1 Tablets [...] Follow up: With: Address: When: Ford Bauman [address] [place] [address] Business (1) With: Address: When: trauma clinic [address] [facility] 3, second floor, [address] [place] [address] Within 1 to 2 weeks Comments: Call to schedule/confirm followup appointment Type Location [facility] 01/12/2024 7:40 AM 01/12/2024 8:00 AM Confirmed Patient Education Information: Minimally Invasive Cholecystectomy, Care After, Lcjv-tw-Kjca; Cholecystitis, Azae-ua-XhmwDzjjhyZvriheOhiohealth Berger HospitalInpatient Patient Summaryon [id number] Patient Summary [address] [address] Patient Discharge Instructions PERSON INFORMATION Name: MAO ESCOBEDO Date of : 1975 Current Date: 01/08/2024 11:05:28 PHYSICIANS Admitting Physician: Nilsa SPICER, Ivette Rocha Primary Care Physician: Ford Bauman DO PCP Comment: Discharge Diagnosis: 1:Cholecystitis Condition at Discharge: Improved MAO ESCOBEDO has been given the following [...] test results: Biopsy/pathology Follow up: With: Address: Anupam: Ford Bauman [address] [place] [address] Business (1) With: Address: When: trauma clinic [address] [facility] 3, second floor, [address] [place] [address] Within 1 to 2 weeks Comments: Call to schedule/confirm followup appointment In the event that this physician does not participate in your insurance network, please consult with your insurance company to find a nearby participating provider. Type Location [facility] 01/12/2024 7:40 AM 01/12/2024 8:00 AM Confirmed Comment: FANNY Ness NATHAN R, have received the attached patient education materials/instructions and have verbalized understanding: Patient Signature Date Clinican/Nurse Signature Date HERE ARE THE MEDICATION CHANGES THAT OCCURRED DURING YOUR HOSPITAL STAY New Medications [employer] [id number], [address] [place], [place] [id number], [phone] amoxicillin-clavulanate (Augmentin 875 mg oral tablet) 1 Tablets By Mouth every 12 hours for 3 Days. Refills: 0. Last Dose: Next Dose: docusate (Colace 100 mg Cap) 1 Capsules By Mouth 2 times a day for 10 Days. Refills: 0. Last Dose: Next Dose: oxycodone (oxyCODONE 5 mg Tab) 1 Tablets By Mouth every 6 hours as needed Pain 8-10 for 3 Days. Refills: 0. Last Dose: Next Dose: senna (senna 8.6 mg Tab) 1 Tablets By Mouth once a day (at bedtime) for 10 Days. Refills: 0. Last Dose: Next Dose: Other Medications acetaminophen (acetaminophen 325 mg Tab) 2 Tablets By Mouth every 6 hours. Last Dose: Next Dose: Medications to Continue with No Changes Other Medications cyclobenzaprine (cyclobenzaprine 10 mg Tab) 1 Tablets By Mouth 3 times a day as needed for spasm. Refills: 1. Last Dose: Next Dose: phentermine (Adipex-P 37.5 mg Tab) 1 Tablets By Mouth every day. before breakfast. Refills: 0. Last Dose: Next Dose: Comment: MEDICATION LIST PROVIDED FOR YOU IS A LIST OF YOUR CURRENT MEDICATIONS. PLEASE CARRY THIS WITH YOU AT ALL TIMES. acetaminophen (acetaminophen 325 mg Tab) 2 Tablets By Mouth every 6 hours. amoxicillin-clavulanate (Augmentin 875 mg oral tablet) 1 Tablets [...] these instructions at home: Medicines ? Take yirr-ynb-fezebzb and prescription medicines only as told by y (more content not included)...[facility] HospitalInterdisciplinary Note - Case Manageron 07-74-2550Vgisjukhocfukuaii Note - Case ManagerCRM spoke with patient and in room. Patient is alert and oriented and participates in discharge planning. Patient white board updated, and CRM contact information provided. Dr Ash in roomand patient will dc home today. Patient denies needs at discharge. will transport.[facility] HospitalComment on above:Result Comment: Electronically Signed By: Chris ALAS, Akua\.br\Date and Time Signed: 01/08/24 10:51 EDTMain OR Intraoperative Recordon 01-30-1376Ljkr OR Intraoperative RecordIntraOp Document Type FT Summary Primary Physician: Ivette Ash MD Finalized Date/Time: 01/08/24 09:11:58 Pt. Name: MAO ESCOBEDO Abby Verma/Sex: 1975 Male Med Rec #: [id number] Physician: Ivette Ash MD Financial #: [id number] Pt. Type: O Room/Bed: N304/01 Admit/Disch: 01/06/24 08:02:41 - Institution: Case Times FT Entry 1 Patient Times In Room 01/07/24 12:19:00 Out Room 01/07/24 15:48:00 Procedure Times Start 01/07/24 12:47:00 Stop 01/07/24 15:32:00 Anesthesia Times Start 01/07/24 12:19:00 Stop 01/07/24 15:48:00 Last Modified By: Cristiane ALAS, Mercedes Menon 01/07/24 16:47:11 General Comments: 01/08/24 Chart opened to review and send charges [facility]oth CSFA Case Attendance FT Entry 1 Entry 2 Entry 3 Case Attendee Nilsa SPICER, Ivette Frias DNP, ART OBJECTS REPAIRER, Queen Rita PALiuC, Gabbi Antonio CBlaire NBlaire Role Performed Surgeon - Primary ART OBJECTS REPAIRER PA/BOATWRIGHT Time In 01/07/24 12:38:00 01/07/24 12:19:00 01/07/24 [...] 5 Entry 6 Case Attendee Mohinder ALAS, Nelli Omalley Terry T Role Performed Modeling Manager - Primary Scrub - Primary Modeling Manager - Relief Time In 01/07/24 12:24:00 01/07/24 [...] Mercedes Menon Role Performed Scrub - Relief Modeling Manager - Relief Modeling Manager - Relief Time In 01/07/24 14:46:00 01/07/24 14:47:00 01/07/24 15:21:00 Time Out 01/07/24 15:48:00 01/07/24 15:24:00 01/07/24 15:48:00 Procedure CHOLECYSTECTOMY CHOLECYSTECTOMY CHOLECYSTECTOMY LAPAROSCOPIC W/ LAPAROSCOPIC W/ LAPAROSCOPIC W/ CHOLANGI(.) CHOLANGI(.) CHOLANGI(.) Comments Last Modified By: Cristiane RN, Mercedes Sauer RN, Mercedes Sauer RN, Mercedes Menon 01/07/24 Soila P 01/07/24 Soila P 01/07/24 16:47:12 16:47:12 16:47:12 Entry 10 Case Attendee Natividad Maik Role Performed CATEGORY CONSULTANT Time In 01/07/24 12:19:00 Time Out 01/07/24 15:45:00 Procedure CHOLECYSTECTOMY LAPAROSCOPIC W/ CHOLANGI(.) Comments Last Modified By: Cristiane ALAS, Mercedes Menon 01/07/24 16:47:51 General Comments: Nilam Doty RN student, also in room to observe. evette alfredinternet sales manager Protocols FT Pre-Care Text: Implements protective measures [...] Out Nilsa SPICER, Ivette Rocha, Altagracia VIGIL, ART OBJECTS REPAIRER, [place] Uri, Rita BILLY, Gabbi Antonio, Mohinder ALAS, Geetha Mccauley Madison A Time Out Complete 01/07/24 12:45:00 Outcomes Met? Yes Last Modified By: Donna Vines RN 01/07/24 13:48:29 Post-Care Text: The patient is [...] Class 2 - Clean-Contaminated Last Modified By: Cristiane ALAS, Mercedes Soila P 01/07/24 16:45:30 General Case Data FT Pre-Care Text: Classifies surgical wound, implements asepti (more content not included)... [facility] HospitalOperative Reporton [id number] Report [facility] Acute [facility] Surgery Operative Report Date of Service: 01/07/2024 Preop Diagnosis: acute cholecystitis Postop Diagnosis: hemorrhagic gangrenous calculous cholecystitis Procedure: laparoscopic cholecystectomy Surgeon: Ivette Ash MD System Dispatcher: Gabbi Salinas PA-C Anesthesia: General endotracheal EBL: 400 mL Wound Class: contaminated Drains: 15 greenlandic drain Complications: None Specimens: Gallbladder, bile aspirate [...] The risks, benefits, and alternatives to laparoscopic cholec ystectomy were explained to the patient who provided [...] to divide the pre-peritoneal fat and enter theperitoneum and then the 12mm Lopez port was [...] the gallbladder was still too thickened and inflamedto grasp with usual nontraumatic graspers, so a toothed grasper had to be used to elevate over the liver. The entire gallbladder was covered with a thick inflammatory rind that bled with every manipulation. The infundibulum was difficult to grasp due to the impacted stone and the thickened inflamedtissue. With great difficulty, peritoneum and rind was dissected off of the lateral portions of thegallbladder to attempt to dissect behind the gallbladder wall. The suction doula and electrocautery was used liberally due to the hemorrhagic inflammation of the gallbladder. After a prolonged dissection to free the cystic triangle and the cystic plate, the cystic duct and artery were identified. The cystic artery also had a posterior branch running behind the gallbladder along the liver bed.I identified a single duct entering the gallbladder with >50% of the cystic plate cleared, I clipped and sharply divided the cystic duct. I clipped and divided the anterior branch of the cystic art nohemi. The gallbladder was then laboriously dissected off [...] completely freed, it was placed in an endocatchbag. No stones were spilled. I then looked back at the liver bed to ensure adequate hemostasis and ensure the clips were in place. The whole area was irrigated and suctioned clear. No further bleeding noted from the liver bed now that the gallbladder was completely removed. Due the friable tissues and gangrenous gallbladder, Idecided to leave a drain. A 15 greenlandic round ALESSANDRO drain was threaded through the [...] down. 2% lidocaine with (more content not included)...NormalOhiohealth Berger HospitalComment on above:Result Comment: Electronically Signed By: Nilsa SPICER, Ivette Rocha\.br\Date and Time Signed: 01/08/24 10:25 EDTPrescriptions/Work Notes on 24-02-9349Bjcqhudyfdjlv/Work Notes [id number]#1.00TIFFNormalOhiohealth Berger HospitaleGFRon 34-37-3971iECO648 mL/min/1.73 u8Nmzujw>=59Ohiohealth Berger HospitalComment on above:Order Comment: Order added by Discern Expert.Performed By: #### [id number] ####[facility] [address] [place], [place] [address]YAPqs 62-18-6831Qwimc gap [Moles/Vol]10 mmol/LNormal6-16 [facility] Berger HospitalComment on above:Performed By: #### [id number] #### [facility] [address] [place], [place] [address]Tlxkiog [Mass/Vol]8.7 mg/dLLow8.9-11.1FCleveland Clinic Fairview HospitalComment on above:Performed By: #### [id number] #### [facility] [address] [place], [place] [address]Llhtyyjg [Moles/Vol]104 mmol/MDpoist639-129WnufxiOhiohealth Berger HospitalComment on above:Performed By: #### [id number] #### [facility] [address] [place], [place] [address]CE9 [Moles/Vol]27 mmol/IVaajqt05-52XfrgbqOhiohealth Berger Hospital Comment on above:Performed By: #### [id number] #### [facility] [address] [place], [place] [address]Fzttbgmags [Mass/Vol]0.9 mg/dLNormal0.5-1.3FCleveland Clinic Fairview HospitalComment on above:Performed By: #### [id number] #### [facility] [address] [place], [place] [address]Pqpqdrx [Mass/Vol]105 mg/dFJrjwfl70-795ZhgyejOhiohealth Berger HospitalComment on above:Performed By: #### [id number] #### [facility] [address], [place] [address]Bfutpqcpk [Moles/Vol]4.2 mmol/LNormal3.5-5.3FCleveland Clinic Fairview HospitalComment on above:Performed By: #### [id number] #### [facility] [address] [place], [place] [address]Ecakvt [Moles/Vol]137 mmol/ASfvbmw723-954TdsceiOhiohealth Berger HospitalComment on above:Performed By: #### [id number] #### [facility] [address] [place], [place] [address]Rfxt nitrogen [Mass/Vol]7 mg/dLNormal5-21Ohio[facility] Berger HospitalComment on above:Performed By: #### [id number] #### [facility] [address] [place], [place] [address]Zzev nitrogen/Creatinine [Mass ratio]8 No AiljqMpd62-97NaycacOhiohealth Berger HospitalComment on above:Performed By: #### [id number] #### [facility] [address], [place] [address]HBE w/ Auto Diffon 99-49-3871Ulcinaxkh/100 WBC (Bld)0.2 %Normal 0.0-2.0Ohio[facility] Berger HospitalComment on above:Performed By: #### [id number] #### [facility] [address] [place] [address]Xzyivigif/Leukocytes Auto (Bld) [Pure # fraction]0.0 E9/LNormal 0.0-0.2FCleveland Clinic Fairview HospitalComment on above:Performed By: #### [id number] #### [facility] [address] [place] [address]Drejgtzaoqx (Bld) [#/Vol]0.3 E9/LNormal0.0-0.5FCleveland Clinic Fairview HospitalComment on above:Performed By: #### [id number] #### [facility] [address] [place] [address]Vddoiibztpu/100 WBC (Bld)2.3 %Normal0.0-8.0Ohio[facility] Berger HospitalComment on above:Performed By: #### [id number] #### [facility] [address] [place] [address]Zxnndxajfld distribution width (RBC) [Ratio]13.6 %Normal 10.9-14.2FCleveland Clinic Fairview HospitalComment on above:Performed By: #### [id number] #### [facility] [address] [place] [address]Bkcbrygouc (Bld) [Volume fraction]45.5 %Nibnot47.7-49.0[facility] Berger HospitalComment on above:Performed By: #### [id number] #### [facility] [address] [place] [address]Rzobruylfq (Bld) [Mass/Vol]15.3 g/hLFqagwa61.5-17.5FCleveland Clinic Fairview HospitalComment on above:Performed By: #### [id number] #### [facility] [address] [place] [address]Akmqhumfais (Bld) [#/Vol]1.6 E9/LNormal1.0-4.0[facility] Berger HospitalComment on above:Performed By: #### [id number] #### [facility] [address] [place] [address]Fpvaxmotcur/100 WBC (Bld)11.4 %Low14.0-50.0Ohio[facility] Berger HospitalComment on above:Performed By: #### [id number] #### [facility] [address] [place] [address]POU (RBC) [Entitic mass]29.6 yjWcfdcu43.0-34.0Ohio[facility] Berger HospitalComment on above:Performed By: #### [id number] #### [facility] [address] [place] [address]CTAB (RBC) [Mass/Vol]33.7 g/fEKxdlse10.4-36.0Ohio[facility] Berger HospitalComment on above:Performed By: #### [id number] #### [facility] [address] [place] [address]UYB (RBC) [Entitic vol]87.8 ySUxfyiv73.0-100.0Ohio[facility] Berger HospitalComment on above:Performed By: #### [id number] #### [facility] [address] [place] [address]Qmhzoqcui (Bld) [#/Vol]0.7 E9/LNormal0.2-1.0[facility] Berger HospitalComment on above:Performed By: #### [id number] #### [facility] [address] [place] [address]Vvwzyabwjfx (Bld) [#/Vol]11.4 E9/LHigh2.0-7.5FCleveland Clinic Fairview HospitalComment on above:Performed By: #### [id number] #### [facility] [address] [place] [address]Edoletljgqe/100 WBC (Bld)80.9 %High36.0-75.0[facility] Berger HospitalComment on above:Performed By: #### [id number] #### [facility] [address] [place] [address]Qhgyqzsu mean volume (Bld) [Entitic vol]9.0 fLNormal6.4-10.8 [facility] Berger HospitalComment on above:Performed By: #### [id number] #### [facility] [address] [place], [place] [address]Kwxqeoifw (Bld) [#/Vol]215.0 E9/ZVbjrnf743.0-500.0Ohio[facility] Berger HospitalComment on above:Performed By: #### [id number] #### [facility] [address] [place], [place] [address]MRP (Bld) [#/Vol]5.2 E12/LNormal4.3-5.9Ohio[facility] Berger HospitalComment on above:Performed By: #### [id number] #### [facility] [address] [place] [address]UDJ corrected for nucl RBC Auto (Bld) [#/Vol]14.1 E9/LHigh 4.0-11.0Ohio[facility] Berger HospitalComment on above:Performed By: #### [id number] #### [facility] [address] [place], [place] [address]WHCCADEEFJdngugn By: SYSTEM SYSTEM on 32-70-9951Clgqk gap [Moles/Vol]10 mmol/LNormal6 - 16 mEq/LRemisol ChemCalcium [Mass/Vol]8.7 mg/dLLow 8.9 - 11.1 mg/dLRemisol ChemChloride [Moles/Vol]104 mmol/YXpceoc752 - 111 mmol/L Remisol ChemCO2 [Moles/Vol]27 mmol/YMptqgu57 - 31 mmol/LRemisol ChemCreatinine [Mass/Vol]0.9 mg/dLNormal0.5 - 1.3 mg/dLRemisol FzvmcSIB805 mL/min/1.73 z9Ionhik >=59mL/min/1.73 x6Whmogda ChemGlucose [Mass/Vol]105 mg/mGJkbwru29 - 199 mg/dL Remisol ChemPotassium [Moles/Vol]4.2 mmol/LNormal3.5 - 5.3 mmol/LRemisol Chem Sodium [Moles/Vol]137 mmol/JGvdsdf648 - 145 mmol/LRemisol ChemUrea nitrogen [Mass/Vol]7 mg/dLNormal5 - 21 mg/dLRemisol ChemUrea nitrogen/Creatinine [Mass ratio]8 mg/mgLow10 - 20Remisol ChemHEMATOLOGYOrdered By: SYSTEM SYSTEM on 69-25-3055Fcrdxxwar/100 WBC (Bld)0.2 %Normal0.0 - 2.0 %Remisol Heme Basophils/Leukocytes Auto (Bld) [Pure # fraction]0.0 E9/LNormal0.0 - 0.2 E9/L Remisol HemeEosinophils (Bld) [#/Vol]0.3 E9/LNormal0.0 - 0.5 E9/LRemisol Heme Eosinophils/100 WBC (Bld)2.3 %Normal0.0 - 8.0 %Remisol HemeErythrocyte distribution width (RBC) [Ratio]13.6 %Yfferx00.9 - 14.2 %Remisol HemeHematocrit (Bld) [Volume fraction]45.5 %Jjpmmw98.7 - 49.0 %Remisol HemeHemoglobin (Bld) [Mass/Vol]15.3 g/pTIiyraf22.5 - 17.5 gm/dLRemisol HemeLymphocytes (Bld) [#/Vol] 1.6 E9/LNormal1.0 - 4.0 E9/LRemisol HemeLymphocytes/100 WBC (Bld)11.4 %Low14.0 - 50.0 %Remisol HemeMCH (RBC) [Entitic mass]29.6 dkOuswas23.0 - 34.0 pgRemisol HemeMCHC (RBC) [Mass/Vol]33.7 g/eUSpbjha67.4 - 36.0 gm/dLRemisol HemeMCV (RBC) [Entitic vol]87.8 dZBjwhdu12.0 - 100.0 fLRemisol HemeMonocytes (Bld) [#/Vol]0.7 E9/LNormal0.2 - 1.0 E9/LRemisol HemeMonocytes/100 WBC (Bld)5.2 %Normal4.0 - 14.0 %Remisol HemeNeutrophils (Bld) [#/Vol]11.4 E9/LHigh2.0 - 7.5 E9/LRemisol Heme Neutrophils/100 WBC (Bld)80.9 %High36.0 - 75.0 %Remisol HemePlatelet mean volume (Bld) [Entitic vol]9.0 fLNormal6.4 - 10.8 fLRemisol HemePlatelets (Bld) [#/Vol] 215.0 E9/VDmibau744.0 - 500.0 E9/LRemisol HemeRBC (Bld) [#/Vol]5.2 E12/LNormal 4.3 - 5.9 E12/LRemisol HemeWBC corrected for nucl RBC Auto (Bld) [#/Vol]14.1 E9/LHigh4.0 - 11.0 E9/LRemisol HemeInterdisciplinary Note - Case Manageron 54-58-9143Mlffsevmuyjqdxgii Note - Case ManagerCRM spoke with patient and fiance in room. Patient is alert and oriented and participates in discharge planning. Patient white board updated, and CRM contact information provided. Discussed Dr Ash will see patient today and plan is for lap lew today. patient states he hopes to go home later today. Patient verified PCP, insurance and denies any DME. Patient is from home independently withfiance, she will transport at [place]. Patient denies any needs at discharge. Per patient Karolina Ivey the co pay with her insurance is too much so [facility] HospitalComment on above:Result Comment: Electronically Signed By: Chris ALAS, Akua\.br\Date and Time Signed: 01/07/24 14:41 EDTMain OR Intraoperative Recordon [id number] OR Intraoperative RecordIntraOp Document Type FT Summary Primary Physician: Ivette Ash MD Finalized Date/Time: 01/07/24 16:48:07 Pt. Name: MAO ESCOBEDO Abby Verma/Sex: 1975 Male Med Rec #: [id number] Physician: Ivette Ash MD Financial #: [id number] Pt. Type: O Room/Bed: AS13/ Admit/Disch: 01/06/24 08:02:41 - Institution: Case Times FT Entry 1 Patient Times In Room 01/07/24 12:19:00 Out Room 01/07/24 15:48:00 Procedure Times Start 01/07/24 12:47:00 Stop 01/07/24 15:32:00 Anesthesia Times Start 01/07/24 12:19:00 Stop 01/07/24 15:48:00 Last Modified By: Cristiane ALAS, Mercedes Menon 01/07/24 16:47:11 Case Attendance FT Entry 1 Entry 2 Entry 3 Case Attendee Nilsa SPICER, Ivette Frias DNP, ART OBJECTS REPAIRER, Queen Rita SALDANAC, Gabbi Antonio CBlaire NBlaire Role Performed Surgeon - Primary ART OBJECTS REPAIRER PA/BOATWRIGHT Time In 01/07/24 12:38:00 01/07/24 12:19:00 01/07/24 12:38:00 Time Out 01/07/24 15:35:00 01/07/24 15:48:00 01/07/24 15:48:00 Procedure CHOLECYSTECTOMY CHOLECYSTECTOMY CHOLECYSTECTOMY LAPAROSCOPIC W/ LAPAROSCOPIC W/ LAPAROSCOPIC W/ CHOLANGI(.) CHOLANGI(.) CHOLANGI(.) Comments dr martinez supervising Last Modified By: Cristiane ALAS, Mercedes Sauer RN, Mercedes Sauer RN, Mercedes Menon 01/07/24 Soila Menon 01/07/24 Soila P 01/07/24 16:47:51 16:47:12 16:47:12 Entry 4 Entry 5 Entry 6 Case Attendee Mohinder ALAS, Donna Iniguez, [place] Role Performed Modeling Manager - Primary Scrub - Primary Modeling Manager - Relief Time In 01/07/24 12:24:00 01/07/24 [...] Attendee Christofer BANEGAS, [facility] Holl[place] RN, Mercedes Soila P Role Performed Scrub - Relief Modeling Manager - Relief Modeling Manager - Relief Time In 01/07/24 14:46:00 01/07/24 [...] 10 Case Attendee Maik Henson Role Performed CATEGORY CONSULTANT Time In 01/07/24 12:19:00 Time Out 01/07/24 15:45:00 Procedure CHOLECYSTECTOMY LAPAROSCOPIC W/ CHOLANGI(.) Comments Last Modified By: Cristiane ALAS, Mercedes Soila P 01/07/24 16:47:51 General Comments: Nilam Doty, EVETTE student, also in room to observe. evette alfredinternet sales manager Protocols FT Pre-Care Text: Implements protective measures [...] Time Out Nilsa SPICER, Ivette Rocha, Altagracia DNP, ART OBJECTS REPAIRER, Amezcua N., Rita BILLY, Gabbi Antonio, Mohinder ALAS, Geetha Mccauley Madison A Time Out Complete 01/07/24 12:45:00 Outcomes Met? Yes Last Modified By: Donna Vines RN 01/07/24 13:48:29 Post-Care Text: The patient is [...] OR OR 6 FT (more content not included)...[facility] I Recordon 53-76-9647Dpxy OR PACU I RecordPACU Phase I Document Type FT Summary Primary Physician: Ivette Ash MD Finalized Date/Time: 01/07/24 16:37:47 Pt. Name: MAO ESCOBEDO/Sex: 1975 Male Med Rec #: [id number] Physician: Ivette Ash MD Financial #: [id number] Pt. Type: O Room/Bed: [facility]/ Admit/Disch: 01/06/24 08:02:41 - Institution: [...] individualized perioperative plan of care The patient's rightto privacy is maintained The patient's value system, [...] with or improved from baseline levels established preoperativelyThe patient's cardiovascular status is consistent with or improved from baseline levels established preoperatively The patient's cardiovascular status is consistent with or improved from baseline levels established preoperatively The patient demonstrates and/or reports adequate pain control throughout the perioperative period The patient received appropriate medication(s), safely administered during the perioperativeperiod Acuity Level PACU I FT Entry 1 Start Time 01/07/24 15:50:00 Stop Time 01/07/24 16:20:00 Acuity Level Acuity Level I Last Modified By: Eleanor Flynn RN 01/07/24 16:37:43 Finalized By: Eleanor Flynn RN Document Signatures Signed By: Eleanor Flynn RN 01/07/24 16:37NoPomerene HospitalMain OR Preoperative Recordon [id number] OR Preoperative RecordPreOp Document Type FT Summary Primary Physician: Ivette Ash MD Finalized Date/Time: 01/07/24 13:09:26 Pt. Name: MAO ESCOBEDO/Sex: 1975 Male Med Rec #: [id number] Physician: Nilsa SPICER, Ivette Rocha Financial #: [id number] Pt. Type: O Room/Bed: [facility] Admit/Disch: 01/06/24 08:02:41 - Institution: Case Times [...] Signatures Signed By: Donna Vines RN 01/07/24 13:09NoPomerene HospitalMonitor Recordon [id number] [id number]#1.00TIFF [facility] HospitalMonitor Record [id number]#1.00TIFFMarietta Memorial HospitalNo Panel InformationOrdered By: Milena Oreilly on 21-28-7791Ixiuw CultureNo growth to [facility]othe HospitalGSOccasional White Blood Cells No organisms seen.[facility] SystemProgress Note-Physicianon [id number] Note-PhysicianPatient: MAO ESCOBEDO Age: 48 years Sex: Male [...] Tab, Oral, q6hr, Routine, Start date 01/06/24 14:00:00EDT, 01/06/24 13:13:00 EDT heparin 5000 units/mL Inj: [...] EDT, Pain score 4-7., 01/06/24 13:13:00 EDT piperacillin-tazobactam additive + Sodium Chloride 0.9% intravenous solution 50 mL: 3.375 gm = 1 EA, Injection, IV Piggyback, q6hrFT, Routine, Start date 01/06/24 18:00:00 EDT, 100 mL/hr, Infuse over30 minute(s) senna 8.6 mg Tab: 8.6 mg = 1 tab(s), Tab, Oral, Once a day (at bedtime), Routine, Start date 01/06/24 21:00:00 EDT Prescriptions Prescribed Adipex-P 37.5 mg Tab: 37.5 mg = 1 tab(s), Oral, Daily, before breakfast, # 30 tab(s), Refills(s) 0,Pharmacy: [facility], 182, cm, 12/17/23 16:50:00 EDT, Height/Length Dosing, 109.7, kg, 12/17/23 16:50:00 EDT, Weight Dosing cyclobenzaprine 10 mg Tab: 10 mg = 1 tab(s), Oral, TID, PRN for spasm, # 30 tab(s), Refills(s) 1, Pharmacy: [facility], 182, cm, 12/17/23 16:50:00 EDT, Height/Length [...] [F] 5,000 unit(s) 1 mL, SubCutaneous, q8hrFT piperacillin-tazobactam 3 g-0.375 g + Sodium Chloride 0.9% [...] Problems BMI 37.0-37.9, adult / SNOMED CT 918648967 / Confirmed Morbid obesity / SNOMED CT 458174441 / Confirmed Perianal abscess / SNOMED CT 304264478 / Confirmed Polycythemia / SNOMED CT 040758 / Confirmed Smoker / SNOMED CT 772457887 / Confirmed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 cmDavid Pocos DO Work Phone: [phone] [place], [place] 6446712-09-2024 08:21-0500Body mass index (BMI) [Ratio]35.57 kg/v2Djjkw Pocos DO Work Phone: [phone] [place], [place] 6446712-09-2024 08:21-0500Body temperature 98.1 [degF]Minal Pocos DO Work Phone: [phone] [place], [place] 6446712-09-2024 08:21-0500Body .67 kgDavid Pocos DO Work Phone: [phone] [place], [place] 6446711-18-2024 15:34-0500Body khechr681.3 cmDavid Pocos DO Work Phone: [phone] [place], [place] 6446711-18-2024 15:34-0500Body mass index (BMI) [Ratio]35.57 kg/y6Biufm Pocos DO Work Phone: [phone] [place], [place] 6446711-18-2024 15:34-0500Body yomydn476.67 kgDavid Pocos DO Work Phone: [phone] [place], [place] 6446710-28-2024 13:31-0400Body ogorea305.3 cmDavid Pocos DO Work Phone: [phone] [place], [place] 6446710-28-2024 13:31-0400Body mass index (BMI) [Ratio]35.62 kg/t3Icoki Pocos DO Work Phone: [phone] [place], [place] 6446710-28-2024 13:31-0400Body azfwwc614.85 kgDavid Pocos DO Work Phone: [phone] [place], [place] 6446709-16-2024 07:32-0400Blood Pressure LocationAdam Link 282-7873Zhfimx-SfwbjDunlap Memorial Hospital 04-25-2024 07:32-0400Diastolic blood mm[Hg]Ford Link 223-9027Sepvrl-GptgoDunlap Memorial Hospital 04-25-2024 07:32-0400Heart rate78 /minAdam Link 007-4778Bijjln-QcynuDunlap Memorial Hospital 04-25-2024 07:32-3451GcI9% (BldA) [Mass fraction]99 %Ford Link 034-2530Ikxrqm-ZlpdgDunlap Memorial Hospital 04-25-2024 07:32-0400Systolic blood atznmhhh322 mm[Hg]Ford Link 967-2396Hnjrzh-IfpkaDunlap Memorial Hospital 04-07-2024 15:49-0400Blood Pressure LocationAdam Link 433-9158Esapog-UerxzDunlap Memorial Hospital 04-07-2024 15:49-0400Diastolic blood vynqhqid62 mm[Hg]Ford Link 288-7416Imjbyd-ZfmagDunlap Memorial Hospital 04-07-2024 15:49-0400Heart rate70 /minAdam Link 053-4183Kowukl-AjppdDunlap Memorial Hospital 04-07-2024 15:49-2749LmG9% (BldA) [Mass fraction]96 %Ford Link 351-2471Dokhfx-YvbmyDunlap Memorial Hospital 04-07-2024 15:49-0400Systolic blood prgbyihr724 mm[Hg]Ford Link 644-0285Vuumcc-AlmvzDunlap Memorial Hospital 01-28-2024 07:43-0400Blood Pressure LocationAdam Link 418-6219Dvdskb-FpppcDunlap Memorial Hospital 01-28-2024 07:43-0400Diastolic blood mm[Hg]Ford Link 774-9645Wmzczk-ThcotDunlap Memorial Hospital 01-28-2024 07:43-0400Heart rate72 /minAdam Link 495-7305Heotdp-AagsiDunlap Memorial Hospital 01-28-2024 07:43-9416CsK0% (BldA) [Mass fraction]99 %Ford Link 322-4150Ppkocr-RapdcDunlap Memorial Hospital 01-28-2024 07:43-0400Systolic blood lsugpgih673 mm[Hg]Ford Link 857-1170Fkxstg-HljhbDunlap Memorial Hospital 01-13-2024 10:25-0400Body zahajbtctgw82.88 [degF]Justin Garvey [facility]06-05-2024 10:25-0400 Diastolic blood mm[Hg]Justin Garvey [facility]06-05-2024 10:25-0400Heart rate79 /minWilliam Guru [facility]06-05-2024 10:25-0400 Systolic blood vnysbvrq674 mm[Hg]Justin Garvey [facility]06-04-2024 07:48-0400Blood Pressure LocationAdam Link 226-8555Uomqst-GnhdsDunlap Memorial Hospital 01-12-2024 07:48-0400Body fnlztawwgjy69.42 [degF]Ford Link 302-4641Ckiucw-XaflnDunlap Memorial Hospital 01-12-2024 07:48-0400Diastolic blood hgkyiaup58 mm[Hg]Ford Link 182-6800Mbjfda-NxjotDunlap Memorial Hospital 01-12-2024 07:48-0400Heart rate76 /minAdam Link 798-9400Ulrowa-YafdxDunlap Memorial Hospital 01-12-2024 07:48-0400Respiratory rate15 /minAdam Link 475-6082Wuicud-UqwjdDunlap Memorial Hospital 01-12-2024 07:48-0638NdE8% (BldA) [Mass fraction]99 %Ford Link 686-9617Wjqrlo-MbcaqDunlap Memorial Hospital 01-12-2024 07:48-0400Systolic blood oxbqvora848 mm[Hg]Ford Link 229-6281Imnoiq-EvdzzDunlap Memorial Hospital 01-10-2024 14:00-0400Diastolic blood mkzocbfi41 mm[Hg]Kaylinn Dokken [facility]06-02-2024 14:00-0400Heart rate95 /minKaylinn Dokken [facility]06-02-2024 14:00-0400Mean blood ckfexhnj582 mm[Hg]Kaylinn Dokken [facility]06-02-2024 14:00-0400 Respiratory rate18 /minKaylinn Dokken [facility]06-02-2024 14:00-0384LuO6% (BldA) [Mass fraction]96 %Kaylinn Dokken [facility]06-02-2024 14:00-0400 Systolic blood kxfpcfny063 mm[Hg]Kaylinn Dokken [facility]06-02-2024 00:28-0400Body vvrflxdrqyh75.7 [degF]Kaylinn Dokken [facility]06-02-2024 00:28-0400 Diastolic blood ncqycjls09 mm[Hg]Kaylinn Dokken [facility]06-02-2024 00:28-0400Heart rate85 /minKaylinn Dokken [facility]06-02-2024 00:28-0400 Respiratory rate16 /minKaylinn Dokken [facility]06-02-2024 00:28-3734CaQ0% (BldA) [Mass fraction]98 %Paris Brannon [facility]06-02-2024 00:28-0400 Systolic blood nyzadaau495 mm[Hg]Paris Brannon [address] [place], [place] 4567105-31-2024 11:00-0400 Hourly RoundingJacinta Robenstine [address]05-31-2024 11:00-0400 Promise to ReturnJacinta Robenstine [address] [place], [place] 3044805-31-2024 10:00-0400 Hourly RoundingJacinta Robenstine [address] [place], [place] 3044805-31-2024 10:00-0400 Promise to ReturnJacinta Robenstine [address]05-31-2024 09:39-0400 Hourly RoundingJacinta Robenstine [address] [place], [place] 3044805-31-2024 09:39-0400 Promise to ReturnJacinta Robenstine [address] [place], [place] 3044805-31-2024 07:37-0400Heart rate58 /minJacinta Robenstine [address] [place], [place] 3044805-31-2024 07:37-9119PpK6% (BldA) [Mass fraction]98 %Ivette Robenstine [address] [place], [place] 3044805-31-2024 07:37-0400Body avexzszfmlm98.7 [degF]Ivette Robenstine [address] [place], [place] 3044805-31-2024 07:36-0400 Diastolic blood poprfyzq71 mm[Hg]Ivette Robenstine [address] [place], [place] 3044805-31-2024 07:36-0400Mean blood acwzxgcg08 mm[Hg]Ivette Robenstine [address] [place], [place] 3044805-31-2024 07:36-0400 Systolic blood mm[Hg]Ivette Robenstine [address] [place], [place] 3044805-31-2024 00:00-0400Body euhpmxbdiua12.06 [degF]Ivette Robenstine [address] [place], [place] 3044805-31-2024 00:00-0400 Diastolic blood khaugexi46 mm[Hg]Ivette Robenstine [address] [place], [place] 3044805-31-2024 00:00-0400Heart rate96 /minJacinta Robenstine [address] [place], [place] 3044805-31-2024 00:00-0400 Respiratory rate6 /minJacinta Robenstine [address] [place], [place] 3044805-31-2024 00:00-8354PhP0% (BldA) [Mass fraction]96 %Ivette Robenstine [address] [place], [place] 3044805-31-2024 00:00-0400 Systolic blood rnxoubev032 mm[Hg]Ivetet Robenstine [address] [place], [place] 3044805-30-2024 23:34-1166CsU0% (BldA) [Mass fraction]98 %Ivette Robenstine [address] [place], [place] 3044805-30-2024 19:39-0400Heart rate82 /minJacinta Robenstine [address] [place], [place] 3044805-30-2024 19:34-0400Body zpfxnhihnvo67.52 [degF]Ivette Robenstine [address] [place], [place] 3044805-30-2024 19:34-0400 Diastolic blood qwkjgfei44 mm[Hg]Ivette Robenstine [address] [place], [place] 3044805-30-2024 19:34-0400Mean blood awilysbn62 mm[Hg]Ivette Robenstine [address] [place], [place] 3044805-30-2024 19:34-0400 Systolic blood zuezorov756 mm[Hg]Ivette Robenstine [address] [place], [place] 3044805-30-2024 19:00-0400 Respiratory rate17 /minJacinta Robenstine [address] [place], [place] 3044805-30-2024 16:43-0400Mean blood zpdztecr52 mm[Hg]Ivette Robenstine [address] [place], [place] 3044805-30-2024 16:15-0400Body tzfbyhvamnk86.88 [degF]Ivette Robenstine [address] [place], [place] 3044805-30-2024 16:15-0400Mean blood zahyqysm04 mm[Hg]Ivette Robenstine [address] [place], [place] 3044805-30-2024 16:15-0400 Respiratory rate20 /minJacinta Robenstine [address] [place], [place] 3044805-30-2024 16:05-0400Mean blood yvyjeftv10 mm[Hg]Ivette Robenstine [address] [place], [place] 3044805-30-2024 16:05-0400 Respiratory rate15 /minJacinta Robenstine [address] [place], [place] 3044805-30-2024 16:00-0400Mean blood dlqdatbv51 mm[Hg]Ivette Robenstine [address] [place], [place] 3044805-30-2024 16:00-0400 Respiratory rate30 /minJacinta Robenstine [address] [place], [place] 3044805-30-2024 15:50-0400Body hdxbhhnmyhu44.88 [degF]Ivette Robenstine [facility]05-30-2024 15:50-4761GCM0 100 1Jacinta Robenstine [address]05-30-2024 15:50-0400 Respiratory rate1 /minJacinta Robenstine [address]05-30-2024 15:45-0901HQG3 100 1Jacinta Robenstine [address]05-30-2024 15:40-7781FRU7 100 1Jacinta Robenstine [address]05-30-2024 10:57-0400Blood Pressure LocationJacinta Robenstine [address]05-29-2024 14:25-0400Body umkiuswetmh06.42 [degF]Ivette Robenstine [address]05-29-2024 08:09-0400Body jovaqhnppeq55.06 [degF]Ivette Robenstine [address]05-29-2024 08:09-0400Heart rate75 /minJacinta Robenstine [facility]05-09-2024 16:47-0400Blood Pressure LocationAdam Link [phone]-XevlwDunlap Memorial Hospital 12-17-2023 16:47-0400Diastolic blood fgbjwsak91 mm[Hg]Ford Link 084-3190Cxolan-AdtpnDunlap Memorial Hospital 12-17-2023 16:47-0400Heart rate60 /minAdam Link 351-3067Dclwss-JkpkxDunlap Memorial Hospital 12-17-2023 16:47-6288RdO7% (BldA) [Mass fraction]98 %Ford Link 805-7742Ezbmkq-MnnapDunlap Memorial Hospital 12-17-2023 16:47-0400Systolic blood ztjynzcu850 mm[Hg]Ford Link 145-6777Xwyrca-CoqdoDunlap Memorial Hospital 11-17-2023 17:48-0400Blood Pressure LocationAdam Link 170-0756Poaspl-RtmwuDunlap Memorial Hospital 11-17-2023 17:48-0400Diastolic blood cyrbbvxt87 mm[Hg]Ford Link 067-8028Hkdqqi-DrxcpDunlap Memorial Hospital 11-17-2023 17:48-0400Heart rate82 /minAdam Link 135-7526Ncgmmv-DiplwDunlap Memorial Hospital 11-17-2023 17:48-1175OkT2% (BldA) [Mass fraction]98 %Ford Link 955-9114Qthvil-BlgttDunlap Memorial Hospital 11-17-2023 17:48-0400Systolic blood ofmbmcug325 mm[Hg]Ford Link 204-0308Zujwox-KzdslDunlap Memorial Hospital 10-16-2023 14:35-0500Blood Pressure LocationAdam Link 006-9763Nrtapd-ZgvrzDunlap Memorial Hospital 10-16-2023 14:35-0500Body jasrzzfnmjs14.06 [degF]Ford Link 680-3258Ncedyh-IrqixDunlap Memorial Hospital 10-16-2023 14:35-0500Diastolic blood qsziixki22 mm[Hg]Ford Link 570-3766Vymlvl-DdccjDunlap Memorial Hospital 10-16-2023 14:35-0500Heart rate80 /minAdam Link 405-6157Pfrvog-CvljeDunlap Memorial Hospital 10-16-2023 14:35-0500Respiratory rate15 /minAdam Link 665-5250Acjxke-UpavfDunlap Memorial Hospital 10-16-2023 14:35-8083ZeJ3% (BldA) [Mass fraction]98 %Ford Link 223-0288Bovuni-HcxyrDunlap Memorial Hospital 10-16-2023 14:35-0500Systolic blood veefpref541 mm[Hg]Ford Link 720-6126Uossuz-NkkpwDunlap Memorial Hospital 10-06-2023 11:35-0500Blood Pressure LocationAdam Link 591-5070Wdudki-KfppbDunlap Memorial Hospital 10-06-2023 11:35-0500Diastolic blood yycszplk20 mm[Hg]Ford Link 031-9599Bftmav-RllqyDunlap Memorial Hospital 10-06-2023 11:35-0500Heart rate75 /minAdam Link 143-6894Etkdth-MpnnuDunlap Memorial Hospital 10-06-2023 11:35-9341CdC4% (BldA) [Mass fraction]98 %Ford Link 779-2584Lecgef-EpaujDunlap Memorial Hospital 10-06-2023 11:35-0500Systolic blood oskceleq828 mm[Hg]Ford Link 703-5596Epqbvq-LwzbyDunlap Memorial Hospital 06-19-2023 08:53-0500Blood Pressure LocationMichael NILL 277-2339Fpxwrx-IufleOhiohealth [facility] 06-19-2023 08:53-0500Diastolic blood cepxefvx84 mm[Hg]Fadi NILL 534-7412Ncutsj-KplprOhiohealth [facility] [place] 06-19-2023 08:53-0500Heart rate63 /minMichael NILL 150-7316Qiuzkb-KauipOhiohealth [facility] [place] 06-19-2023 08:53-0500Respiratory rate16 /minMichael NILL 223-3689Jukmjp-KgdrbOhiohealth [facility] [place] 06-19-2023 08:53-0500Systolic blood mrwsydqo198 mm[Hg]Fadi RAHMAN 889-7676Zsokxf-FzwxoOhiohealth [facility] [place] 06-05-2023 01:48-0400Body fjbxevbmwoo31.7 [degF]Paris Brannon [facility]10-27-2023 01:48-0400 Diastolic blood znubvodf55 mm[Hg]Paris Santosen [facility]10-27-2023 01:48-0400Heart rate65 /Esperanza Santosen [address] [place], [place] 4567110-27-2023 01:48-0400 Respiratory rate18 /Esperanza Estebankken [facility]10-27-2023 01:48-0263OoW4% (BldA) [Mass fraction]98 %Paris Brannon [facility]10-27-2023 01:48-0400 Systolic blood tpbuzlkq218 mm[Hg]Paris Brannon [facility]05-26-2023 09:39-0400Blood Pressure LocationJacinta Jeremyenstine [facility]05-26-2023 09:39-0400Body cvmztcmiiee78.06 [degF]Ivette Robenstine [facility]05-26-2023 09:39-0400 Diastolic blood mm[Hg]Ivette Robenstine [facility]05-26-2023 09:39-0400Heart rate59 /minJacinta Robenstine [facility]05-26-2023 09:39-0400 Respiratory rate18 /minJacinta Robenstine [facility]05-26-2023 09:39-4948BeZ6% (BldA) [Mass fraction]99 %Ivette Fernandeztine [facility]05-26-2023 09:39-0400 Systolic blood mm[Hg]Ivette Fernandeztine [facility]07-18-2022 12:52-0400Blood Pressure LocationDERIK SIDELL 631-7747Ucowyx-CdpayDunlap Memorial Hospital 07-18-2022 12:52-0400Diastolic blood nufhwfon07 mm[Hg] KATE SIDELL 136-5737Dkzpuj-HsgchDunlap Memorial Hospital 07-18-2022 12:52-0400Heart rate70 /minDERIK SIDELL 794-2328Qdmkzh-ZdsyvDunlap Memorial Hospital 07-18-2022 12:52-3375SlT2% (BldA) [Mass fraction]97 % KATE SIDELL 580-5495Asiesk-PjwotDunlap Memorial Hospital 07-18-2022 12:52-0400Systolic blood hdoitlwc616 mm[Hg] KATE SIDELL 312-8137Gazeea-RilydDunlap Memorial Hospital 07-08-2022 13:29-0400Blood Pressure LocationDERIK SIDELL 889-9754Ibhfmg-GmztzDunlap Memorial Hospital 07-08-2022 13:29-0400Diastolic blood rqpcamok40 mm[Hg] KATE SIDELL 404-0264Pklysv-YbmqoDunlap Memorial Hospital 07-08-2022 13:29-0400Heart rate70 /minDERIK SIDELL 113-2393Ntbudz-PhjsyDunlap Memorial Hospital 07-08-2022 13:29-5889VtK1% (BldA) [Mass fraction]99 % KATE GARCIA 471-1587Sbfkkv-BdtyeDunlap Memorial Hospital 07-08-2022 13:29-0400Systolic blood qfhuofdo777 mm[Hg] KATE GARCIA 084-3853Mfftsn-SzbxbDunlap Memorial Hospital 05-18-2022 08:10-0400Body bhhqnyzkhvl71.52 [degF]Yared Puente [facility]05-18-2022 08:10-0400 Diastolic blood bsticnmw51 mm[Hg]Yared Puente [facility]05-18-2022 08:10-0400Heart rate70 /minYared Puente [facility]05-18-2022 08:10-0400 Respiratory rate18 /minYared Puente [facility]05-18-2022 08:10-4389TlN8% (BldA) [Mass fraction]99 %Yared Puente [facility]05-18-2022 08:10-0400 Systolic blood mm[Hg]Yared Puente [facility] Encounters Encounter DateEncounter TypeCare ProviderFacilityStart: 16-16-2788ldynausxbmUdi [facility] CenterStart: 07-25-2024 End: 17-08-4378Vrr-admission assessmentDavid A Pocos [facility] Start: 07-18-2024 End: 68-13-0184Uwmewbw encounter procedureDavid A Pocos DO Work Phone: noMS NB ORTHOComment on above:Closed nondisplaced fracture of distal phalanx of left thumb, initial encounter (Primary Dx)Start: 07-18-2024 End: 78-26-8066rfwhjmiridLFXGR A POCOSNot AvailableStart: 06-27-2024 End: 69-74-2368exivpubnyvFYQIT A POCOSNot AvailableStart: 06-27-2024 End: 65-63-6643Vbidfvk encounter procedureDavid A Pocos DO Work Phone: noms NB ORTHOComment on above:Closed nondisplaced fracture of distal phalanx of left thumb, initial encounter (Primary Dx); Crushing injury of thumb, left, subsequent encounterStart: 06-27-2024 End: 99-28-5465mgthvlqprnTEZBG A POCOSNot AvailableStart: 06-24-2024 End: 85-02-7996fojulbwavxOsur C LinkFacility:[facility]Start: 06-24-2024 End: 66-15-8264Azpspwc encounter procedureAdam C Link [phone]-HxefrParkwood Hospital Medicine [place] Start: 06-06-2024 End: 24-89-2151jgjmahftgjRZAEK A POCOSNot AvailableStart: 06-06-2024 End: 09-05-4383Rxnlobz encounter procedureDavid A Pocos DO Work Phone: noms NB ORTHOComment on above:Pain of left thumb (Primary Dx); Crush injury to thumb, left, initial encounter; Closed nondisplaced fracture of distal phalanx of left thumb, initial encounter Start: 06-06-2024 End: 80-11-3632yvdrnbicwuIJBQO A POCOSNot AvailableStart: 04-25-2024 End: 43-91-8880lwdrgzpkmyJcum C LinkFacility:[facility]Start: [facility]2024 End: 09-81-2976Blmeier encounter procedureAdam C Link [phone]-[facility]qamDunlap [facility] Start: 04-07-2024 End: 42-89-5603neotgdxvgjKnej C LinkFacility:[facility]: 04-07-2024 End: 16-34-4102Kjncrev encounter procedureAdam C Link [phone]-WsmtqDunlap Memorial Hospital Start: 01-28-2024 End: 24-01-2134dpqebqmovxDasd C LinkFacility:[facility]art: 01-28-2024 End: 82-40-1342Suojmqw encounter procedureAdam C Link [phone]-HnuzkDunlap Memorial Hospital Start: 01-13-2024 End: 63-53-8471sygjiemrpeDlwkkpn Taylor WalshFacility:[facility]art: 01-13-2024 End: 51-32-3398Ogzxdqc encounter procedureJustin Garvey [facility] Start: 01-12-2024 End: 17-45-1026xgnxirptdjHgyg C LinkFacility:[facility]: 01-12-2024 End: 32-71-7970Yvdmqrb encounter procedureAdam C Link [phone]-FprqyDunlap Memorial Hospital Start: 01-11-2024 End: 50-51-0266eodcuzocdzXlxu C LinkFacility:CD:[phone]: 01-10-2024 End: 03-29-3972Gfpikvqor department patient visitParis BrannonFacility:[facility] Start: 60-94-6418fvptvwbmhoHwtuntcJanki AshFacility:[facility]tart: 01-06-2024 End: 70-48-3746jbcorhjqsnFqjtqmbJanki AshFacility:[facility]ENTERtart: 01-06-2024 Emergency department patient visitTim ThomasFacility:FTMCStart: 01-06-2024 End: 43-51-7815XgiroodjmwlJtgoeei C. Jeremycliff [facility] Start: 12-17-2023 End: 08-44-4124dumxwsbikdUtrv C LinkFacility:[facility]: 12-17-2023 End: 34-80-9352Yxfhozd encounter procedureAdam C Link [phone]-ZmpggDunlap Memorial Hospital Start: 11-17-2023 End: 37-87-5595gnscpmcaxsLhir C LinkFacility:[facility]: 11-17-2023 End: 54-43-5090Czcrkoa encounter procedureAdam C Link [phone]-CpkqhDunlap Memorial Hospital Start: 10-16-2023 End: 27-29-1854svjthfjikvLkcf C LinkFacility:[facility]: 10-16-2023 End: 14-67-8934Xighmqu encounter procedureAdam C Link [phone]-HwwvtDunlap Memorial Hospital Start: 10-06-2023 End: 69-62-4973pvhjhtanfzZgsj C LinkFacility:[facility]: 10-06-2023 End: 09-09-1459Enldbxl encounter procedureAdam C Link [phone]-TxpknDunlap Memorial Hospital Start: 09-02-2023 End: 06-28-6746kmamkvksgbZjwuxx J AnnalisaeyFacility:[facility]: 09-02-2023 End: 13-65-6395Knjelug encounter procedureRobert J [facility] Start: 06-19-2023 End: 73-63-0965vsqtrvceicMrskicg R NILLFacility:[facility]Carolinetart: 06-19-2023 End: 63-33-8241Pwpikbl encounter procedureMichael R NILL [phone]-RizajOhiohealth Grant [facility] Center General Surgery Lyubov Start: 83-55-7429twltkvbkjbHtdraewdtw SpasicFacility:[facility]art: 06-05-2023 End: 76-06-1705Rfddbdphd department patient visitParis Brannon [facility] Start: 03-02-2023 End: 50-52-1034adskpyekodIobekghrbr Linda SpasicFacility:[facility] HospitalDanniellert: 01-02-2023 End: 28-36-6984Cmfflws encounter procedureIvette sAh [facility] Start: 09-06-2022 End: 20-05-5907Eiobowvfl department patient visitJose Elias Oliver Jr [facility]: 02-24-2022 End: 28-26-8490Xdnduxy encounter procedureKATE GARCIA [phone]-TqgmrDunlap Memorial Hospital Start: 02-14-2022 End: 54-46-5370Ydieozg encounter procedureKATE GARCIA [phone]-KjthdDunlap Memorial Hospital Start: 02-10-2022 End: 94-59-2191Wqnwvnkfq department patient visitAndrés Christopher [facility]: 12-25-2021 End: 81-52-2054Acjfqqhfj department patient visitYared Puente [facility] Procedures DateProcedureProcedure DetailPerforming ClinicianStart: 39-72-2936Mxojy fingr minimum 2 viewsDavid A Pocos DO Work Phone: Start: 91-82-1384Tnhcg fingr minimum 2 viewsDavid A Pocos DO Work Phone: Start: 84-92-7815Exyqo fingr minimum 2 viewsDavid A Pocos DO Work Phone: Start: 35-06-8942Duyivccnwacgoix and operative cholangiogramJacinta Robenstine Start: 68-82-0129Fbuebcnq and drainage of perirectal abscessMichael NILL History of cholecystectomyHistory of cholecystectomy Ford Link Incision and drainage of perirectal abscessMichael NILL None (qualifier value)Yared Puente Plan of Treatment DateCare ActivityDetailAuthorStart: 08-19-2024 End: 83-93-4589Szosqik encounter xzptyehpo31/10/2025 8:00 AM EST Office Visit [facility] [address] [place] [phone] Minal Sterling, DO [address] [place] [facility] [address] [facility]Start: 07-18-2024 End: 02-96-8412Glixczn encounter djoqahoyb41/09/2024 8:15 AM EST Office Visit [facility] [address] [place] [phone] Minal Sterling, DO [address] [place] [address] [facility] NB [facility]THOStart: 06-27-2024 End: 05-68-1238Wjkwjjb encounter znughwvbv59/18/2024 3:30 PM EST Office Visit [facility] [address] [place] [address] Minal Sterling, DO [address] [place] [address] [facility] ORTHOStart: 26-83-7315Ooqdfdxul vaccinationInfluenza Vaccine (#1)[facility] HealthcareStart: 15-39-8827Fyhuotfsc for malignant neoplasm of colonNOAZ HealthcareXR Finger - left 2 ViewsXR fingers 2+ views left Imaging Routine Pain of left thumb 06/06/2024 11:42 AM [facility] Work Phone: XR Finger - left 2 ViewsXR fingers 2+ views left Imaging Routine Closed nondisplaced fracture of distal phalanx of left thumb, initial encounter 06/27/2024 11:30 AM [facility] [employer] Work Phone: XR Finger - left 2 ViewsXR fingers 2+ views left Imaging Routine Closed nondisplaced fracture of distal phalanx of left thumb, initial encounter 07/18/2024 7:53 AM [facility] [employer] Work Phone: Immunizations Immunization DateImmunizationNotesCare KwlrhnebTmxldnux21-46-2740JSTS-YpF-3 (COVID-19) mRNA-1273 vaccineMichael NILL [phone]-HmjteKindred Hospital [facility]ima [facility] [place] 90-89-6932PROG-CoV-2 (COVID-19) mRNA-1273 vaccineMichael NILL [phone]-RvfvqOhiohealth Grant Medical Center [facility] [place] 48-31-4013tcmnwuy toxoid, reduced diphtheria toxoid, and acellular pertussis vaccine, adsorbedAdam Link [phone]-EyixlDunlap Memorial Hospital NEGATED: Highlighted row has not occurred!47-89-8197rxdduhzza virus vaccine, unspecified formulationAdam Link [phone]-MyxgfDunlap Memorial Hospital NEGATED: Highlighted row has not occurred!90-83-9590jumngdegl virus vaccine, unspecified formulationAdam Link 130-0998Eipabx-TdtfkDunlap Memorial Hospital NEGATED: Highlighted row has not occurred!60-86-7186hfunvppiq virus vaccine, unspecified formulationAdam Link [phone]-GeixrDunlap Memorial Hospital NEGATED: Highlighted row has not occurred!66-51-6254tlqdmpvsw virus vaccine, unspecified formulationAdam Link [phone]-GshmrDunlap Memorial Hospital NEGATED: Highlighted row has not occurred!00-90-9355ojoljfqbq virus vaccine, unspecified formulationAdam Link [phone]-KfqklDunlap Memorial Hospital NEGATED: Highlighted row has not occurred!17-97-4948jtsbyclhp virus vaccine, unspecified formulationMichael NILL [phone]-FfctyOhiohealth Grant Medical Center [facility] [place] Payers DatePayer CategoryPayerPolicy [id number] Health InsuranceC[facility]ITALCAL M[facility]UAL [id number]-dtc75-07-0895 [id number] 09.25.830.1.736291.3.579.2.727 [id number] 840.1.330478.3.57[id number] 2.16.840.1.152160.3.57[id number] 2..840.1.379467.3.57[id number] 2.840.1.375319.3.57[id number] 2.0.1.862729.3.57[id number] 2.0.1.059727.3.57[id number] 2..1.671526.3.579.2.[id number] 2.0.1.236159.3.57[id number] 2..1.877154.3.57[id number] 2..1.587673.3.57[id number] 2.0.1.763014.3.57[id number] 2.0.1.699212.3.57[id number] 2.0.1.309944.3.57[id number] 2.0.1.687761.3.57[id number] 2.0.1.926544.3.57[id number] 2.840.1.321759.3.57[id number] 2.840.1.000471.3.57[id number] 2.0.1.634969.3.57[id number] 2.840.1.394887.3.579.2.[id number] 2.0.1.138829.3.57[id number] 2.0.1.093634.3.579.2.53704-00-1762Jlwxcdq1705570 2.0.1.362826.3.579.2.367731-76-8365Ksbchaw1819041 2.0.1.590030.3.579.2.156930-37-3090Goewttu4307870 2.0.1.148719.3.579.[id number] 2..1.530889.3.579.2.291284-26-6178Ziamftt3110116 2..1.053669.3.579.2.961769-87-7723Fwkbvow6856073 2.0.1.263360.3.579.2.1007Bewhvbc78758759 2.0.1.966670.3.579.2.531 [id number] 2..1.265541.3.579.2.531 Social History DateTypeDetailFacilityStart: 08-24-2015 End: 87-10-4185Phrpndn smoking statusSmokes tobacco daily (finding)[facility] SystemComment on above:08/13 PPDStart: 06-06-2024 End: 03-50-0235Gvk Assigned At BirthMalAdams County Regional Medical Centertart: 02-14-2022 End: 62-36-2121Wqnoszg smoking statusLight tobacco smoker (finding)[facility] Comment on above:girlfriend smokes in homeTobacco smoking statusNeverDunlap Memorial Hospital Comment on above:girlfriend smokes in homeStart: 70-95-7262Fdfiibk smoking statusEx-smoker (finding)[facility] Start: 36-34-0318Nufwshn smoking statusHeavy tobacco smoker (finding)[facility] NorwalkHistory of tobacco useCigarette SmokerNOMS HealthcareStart: 34-75-6667Dhttfvf use and exposureSmokeless tobacco non-userNOMS HealthcareStart: 06-06-2024 End: 68-37-9043Jcwouzeao beverage intakeLifetime non-drinker (finding)[facility] HealthcareStart: 06-06-2024 End: 75-38-9237Zshnbbz of Social functionNOMS HealthcareStart: 84-54-9249Vsc assigned at birthNot on [facility] Functional Status RugyHbffyndayiBgolnfBdjxhroo87-16-0483Pvxehqmuzh StatusN/[facility]08-29-2024Functional StatusN/[facility]06-20-2024Functional StatusN/[facility]06-04-2024Functional StatusN/[facility]06-02-2024Functional StatusN/[facility]05-29-2024Functional StatusN/[facility]05-29-2024 Functional StatusBl[facility]ard [facility]05-09-2024Functional StatusN/A [facility]04-09-2024Functional StatusN/A [facility]03-08-2024Functional StatusN/A [facility]02-27-2024Functional StatusN/A [facility]11-10-2023Functional StatusN/A [facility] General Surgery Hpmsnew66-55-5031Prlotkdydd Status N/[facility]07-18-2022Functional StatusN/[facility] 07714801-60-5505Wmamebsmfc StatusN/[facility] Clinical Notes 12-25-2021 to 07-18-2024 Note Date & OjxlCehnYajzshyk99-67-3401 History of Present illness Narrative* Dari Esqueda - 07/18/2024 8:15 AM EST Images from the original note were not included. Mao Escobedo is a 48 y.o. male presents with chief complaint of left thumb crush injury. HPI: Mao returns here today for repeat evaluation of his left thumb. He is doing fairly well. He is still numb. He is just wrapping, no longer wearing a splint. He has been advancing his activities. SUBJECTIVE: MEDICATIONS: Current Outpatient Medications Medication Instructions acetaminophen (Tylenol) 500 MG tablet Take by mouth ibuprofen 200 MG tablet Take by mouth phentermine (ADIPEX-P) 37.5 mg, Daily before breakfast sildenafil (VIAGRA) 25 mg varenicline (Chantix) 1 MG tablet Take 1/2 tablet by mouth daily for 2 weeks, then take 1 tablet twice daily with full glass of water ALLERGIES: No Known Allergies SURGICAL HISTORY: Past Surgical History: Procedure Laterality Date LASIK Bilateral 2015 [place] FAMILY HISTORY: No family history on file. SOCIAL HISTORY: Social History Tobacco Use Smoking status: Every Day Types: Cigarettes Smokeless tobacco: Never Vaping Use Vaping status: Never Used Substance Use Topics Alcohol use: Never Drug use: Never Depression: Not on file REVIEW OF SYMPTOMS: The review of systems, history and current medications list are all reviewed today. OBJECTIVE: Visit Vitals Temp 98.1 F Ht 5' 11 Wt 255 lb BMI 35.57 kg/m Smoking Status Every Day BSA 2.41 m Physical Exam His orthopedic exam of the thumb shows no changes. He does still have the large subungual hematoma, some ecchymotic change at the hyponychial fold. Swelling is down a little bit, still very numb. Range of motion is improved, but still very stiff. His tenderness to palpation is much less. X-rays AP, lateral and oblique of the left thumb total of three views with permanent images are saved to the record does show blunting of the fracture. No evidence of new or further fracture noted. ASSESSMENT AND PLAN: Assessment/Plan Left thumb crush injury with distal phalangeal fracture. The findings are discussed. Again, we did outline the nature of the symptoms and injury and did recommend supportive care for him. He does voice understanding of this. We did offer occupational therapy. He would like to go ahead with this. It does appear to be clinically indicated and cost effective. We will go ahead and get this set up for him. We will see him back here in one month for a recheck and review with x-ray. He is discharged in stable condition. Cosigned by Minal Sterling DO at 07/20/2024 7:30 AM EST documented in this encounterChildren's Mercy NorthlandGqqpgxtrva36-71-8078 History of Present illness Narrative* Dari Esqueda - 06/27/2024 3:30 PM EST Images from the original note were not included. Mao Escobedo is a 48 y.o. male presents with chief complaint of follow up left thumb crush injury with distal phalangeal fracture. HPI: Mao returns here today for repeat evaluation of all the above. He is doing about the same. 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 He states at the end of the day, this is when his thumb is the most sore. SUBJECTIVE: MEDICATIONS: Current Outpatient Medications Medication Instructions acetaminophen (Tylenol) 500 MG tablet Take by mouth ibuprofen 200 MG tablet Take by mouth naproxen (NAPROSYN) 500 mg, Oral, 2 times daily with meals phentermine (ADIPEX-P) 37.5 mg, Daily before breakfast sildenafil (VIAGRA) 25 mg varenicline (Chantix) 1 MG tablet Take 1/2 tablet by mouth daily for 2 weeks, then take 1 tablet twice daily with full glass of water ALLERGIES: No Known Allergies SURGICAL HISTORY: Past Surgical History: Procedure Laterality Date LASIK Bilateral 2015 [place] FAMILY HISTORY: No family history on file. SOCIAL HISTORY: Social History Tobacco Use Smoking status: Every Day Types: Cigarettes Smokeless tobacco: Never Vaping Use Vaping status: Never Used Substance Use Topics Alcohol use: Never Drug use: Never Depression: Not on file REVIEW OF SYMPTOMS: The review of systems, history and current medications list are all reviewed today. OBJECTIVE: Visit Vitals Ht 5' 11 Wt 255 lb BMI 35.57 kg/m Smoking Status Every Day BSA 2.41 m Physical Exam His orthopedic exam here today reveals gentle arc of motion of the thumb to be without a lot of difficulty. His neurocirculatory status is overall grossly intact to all distributions. He still has the subungual hematoma. He also has the evidence of some bruising up into the hyponychial area. His neurocirculatory status is overall grossly intact. X-rays AP, lateral and oblique does show the comminuted tuft fracture of the distal phalanx. There maybe some intraarticular involvement. Certainly no evidence of displacement or other finding of significance. ASSESSMENT AND PLAN: Assessment/Plan Left thumb crush injury with distal phalangeal fracture. The findings are discussed. He will work on some early gentle arc of motion. He will continue the splint and wrapping of the area. We did discuss the fact that this may take a while to fully calm andfully feel better. We did discuss the neurologic injury as he does have some numbness. We will see him back in another three weeks for x-ray and recheck. We did discuss concepts behind delayed union,nonunion and symptomatic versus asymptomatic nonunion. He does voice understanding. Cosigned by Minal Sterling DO at 07/01/2024 12:10 PM EST documented in this encounterChildren's Mercy NorthlandAshtkuietn95-82-7685 History of Present illness Narrative* Dari Esqueda - 06/06/2024 1:15 PM EDT Images from the original note were not included. Mao Escobedo is a 48 y.o. male presents with chief complaint of left thumb fracture. HPI: Mao is a 48-year-old right hand dominant white male who presents with a crush injury to his leftthumb. This happened on 05-31-2024. [facility] in [facility]. He was placed in a splint. He did change out the splint, bought an ljau-lac-zlzfjej one. He does continue to have pain. 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 He states he is able to do that because he can simply rest his hand valeri joystick. He has never had a problem with this thumb in the past. He denies any interval injury. SUBJECTIVE: MEDICATIONS: Current Outpatient Medications Medication Instructions acetaminophen (Tylenol) 500 MG tablet Take by mouth ibuprofen 200 MG tablet Take by mouth naproxen (NAPROSYN) 500 mg, Oral, 2 times daily with meals phentermine (ADIPEX-P) 37.5 mg, Daily before breakfast traMADol (Ultram) 50 MG tablet May take 1 tablet (50 mg) by mouth every 6 (six) hours if needed forsevere pain. May also take 2 tablets (100 mg) every 6 (six) hours if needed for severe pain. Do allthis for 7 days. varenicline (Chantix) 1 MG tablet Take 1/2 tablet by mouth daily for 2 weeks, then take 1 tablet twice daily with full glass of water ALLERGIES: No Known Allergies SURGICAL HISTORY: Past Surgical History: [facility]: No family history on file. SOCIAL HISTORY: Social History Tobacco Use Smoking status: Every Day Types: Cigarettes Smokeless tobacco: Never Vaping Use Vaping status: Never Used Substance Use Topics Alcohol use: Never Drug use: Never Depression: Not on file REVIEW OF SYMPTOMS: The review of systems, history and current medications list are all reviewed today. OBJECTIVE: Visit Vitals Ht 5' 11 Wt 255 lb 6.4 oz BMI 35.62 kg/m Smoking Status Every Day BSA 2.41 m Physical Exam His orthopedic exam reveals a pleasant 48-year-old white male in no acute distress. He does have obvious swelling and tenderness to palpation over the thumb area in general. No gross deformity. He does have soiled hands. H*e does have an area of blistering right over the hyponychial area with tenderness to palpation. This is not erythematous, does not appear to be infectious. His IPjoint is rather benign. His MCP joint is benign. Remainder of the left hand is benign. Radial and ulnar pulses are brisk. Examination of the right hand and thumb reveals gentle arc of motion without difficulty. This area is fully stable. His neurocirculatory status is intact. Examination of the x-ray AP, lateral and oblique of the left thumb here today total of three views with permanent images are saved to the record does show a comminuted tuft fracture, likely intraarticular. No articular step off. Overall alignment is appropriate. ASSESSMENT AND PLAN: Assessment/Plan Left thumb crush injury with distal phalangeal fracture, comminuted. The findings are discussed. He will continue the splinting and is fashioned a new Alumafoam splint here today per myself. We did also give him some coban for compression over the area. He is e-prescribed naproxen along with Ultram. The Ultram is 50 mg #40, no refills. This is to last one week and does appear to be appropriate in this acute pain setting. The diagnosis is associated accordingly andan OARRS report is performed. We did discuss Tylenol dosing with this. We did outline follow up in three weeks for x-ray and recheck. He is working and that is reasonable for him. All questions are otherwise answered. Follow up letter sent to his primary care physician. Cosigned by Minal Sterling DO at 06/09/2024 3:15 PM EDT documented in this encounterChildren's Mercy NorthlandSgswvxsmmq66-98-9965 Hospital Discharge instructions Follow Up Care 01/28/2024 07:58:29 With:Ford Bauman DO, FAM Address: [address] [place] [address]- When:6 weeks Comments:6 WEEKS FOLLOWUP [facility] 06-04-2024 Hospital Discharge instructions Follow Up Care 01/12/2024 08:26:06 With:Ford Bauman DO, FAM Address: [facility] [place] [address]- When:3 months Comments:Controlled Medication Followup [facility] [place] 06-02-2024 Evaluation + Plan noteExtracted from:Title: ED NoteAuthor:DanielleParis alonzo DO ADate:01/10/24 Encounter for recheck of abs cess following [...] Date:01/12/2024 07:40:00 AM Scheduled Provider:Ford Bauman DO Location:[facility] Appointment Type:[facility]06-02-2024 [place] [address] MAO ESCOBEDO Date of : 1975 48 [...] UP: With: Address: When: trauma clinic [address] [facility] [address], second floor, [address] [place] [id number] Within 1 to 2 weeks Comments: Call [...] assessment, potential removal Ivette Ash MD Trauma Service Captain /[facility] SurgeryOhio[facility] Comment on above:Result Comment: Electronically Signed By: Gabbi Salinas PA-C\.br\Date and Time Signed: 01/08/24 11:30 EDT\.br\Electronically Co-Signed By: Ivette Ash MD\.br\Date and Time Co-Signed: 01/10/24 12:18 EDT 01-10-2024 [...] Locations R1: This test was performed at: [facility], [address] [place] [address], [address] , , OnzdvlOhiohealth Berger HospitalComment on above:Performed By: #### [id number] ####[facility] [address] [place], [place] [id number] Hospital Discharge instructions Patient Education 01/10/2024 02:02:51 Minimally Invasive Cholecystectomy, Care After, Cazt-hs-Fzcp Minimally Invasive Cholecystectomy, Care After What can [...] Follow these instructions at home: Medicines Take efbn-kjy-noiofjy and prescription medicines only as told by [...] cannot use soap and water, use hand abrasive mixer. ?Change your bandage. ?Leave stitches (sutures) or [...] provider. Document Revised: 01/28/2022 Document Reviewed: 01/28/2022 [employer] Patient Education 2022 H[employer]lements. Follow Up Care 01/10/2024 00:24:51 With:Ivette Ash Address: [address] [place], [place] [address]melania [place]fel[address], [address] [phone] Business (1) When:01/13/2024 Comments:Please follow-up with general surgery for further evaluation and management. Return to the ED for any new or worsening symptoms. With:Ford Bauman Address: [address] [address]- Business (1) When:01/13/2024 [facility]05-30-2024 Evaluation + Plan noteExtracted from: Title:ANES Pre-operative Note - AdultAuthor:Alberto Martinez Jr., DO GDate:01/07/24 Plan [place] [employer]esthesi[employer] (ASA) physical status classification: Class III. Anesthetic Preoperative Plan: Anesthesia General. Extracted from:Title:ED NoteAuthor:Andrew Gastelum PA-CDate:01/06/24 Cholecystitis (K81.9: Cholec ystitis, unspecified) Orders: HYDROmorphone, [...] Date:01/12/2024 07:40:00 AM Scheduled Provider:Ford Bauman DO Location:[facility] Appointment Type:[facility]05-30-2024 Hospital Discharge instructions Patient Education 01/07/2024 10:23:09 Minimally Invasive Cholecystectomy, Care After, Jyvk-fu-Pqwm Minimally Invasive Cholecystectomy, Care After What can [...] Follow these instructions at home: Medicines Take kwhi-rhk-auplvxo and prescription medicines only as told by [...] cannot use soap and water, use hand abrasive mixer. ?Change your bandage. ?Leave stitches (sutures) or [...] provider. Document Revised: 01/28/2022 Document Reviewed: 01/28/2022 [employer] Patient Education 2022 [employer]lements. 01/07/2024 10:23:07 Cholecystitis, Zigf-oa-Sarj Cholecystitis Cholecystitis is irritation and swelling (inflammation) [...] Follow these instructions at home: Medicines Take qdwe-eav-mlzlvho and prescription medicines only as told by [...] provider. Document Revised: 01/28/2022 Document Reviewed: 01/28/2022 [employer] Patient Education 2022 Hotelements. Follow Up Care 01/06/2024 08:04:16 With:Ford Link Address: [address] [place] [address]- Business (1) When: Unknown With:trauma clinic Address: [facility] 3, second floor, [address] [place] [address]- [phone] When:1 to 2 weeks Comments:Call to schedule/confirm followup appointment [facility]05-30-2024 NoteACUTE CARE SURGERY CONSULT NOTE CHIEF COMPLAINT: [...] Lymph Abs Man: 2.2 E9/L (01/06/24 08:44:00) Karnes Abs Man: 0.9 E9/L (01/06/24 08:44:00) Eos [...] use dose modulation, itera (more content not included)...[facility] HospitalComment on above:Result Comment: Electronically Signed By: Nilsa SPICER, Ivette Rocha\.br\Date and Time Signed: 01/06/24 23:59 [id number] NoteACUTE CARE SURGERY CONSULT NOTE CHIEF COMPLAINT: [...] Lymph Abs Man: 2.2 E9/L (01/06/24 08:44:00) Karnes Abs Man: 0.9 E9/L (01/06/24 08:44:00) Eos [...] use dose modulation, itera (more content not included)...[facility] HospitalComment on above:Result Comment: Electronically Signed By: Nilsa SPICER, Ivette Rocha\.dianna\Date and Time Signed: 01/06/24 23:59 [id number] Hospital Discharge instructions Follow Up Care 12/17/2023 17:06:56 With:Ford Bauman DO, FAM Address: [address] [place] [address]- When:2 weeks Comments:2 WEEKS [facility] 04-15-2024 Hospital Discharge instructions Follow Up Care 11/23/2023 12:27:06 With:Ford Bauman DO RUKHSANA Address: [address] [place] [address]- When:4 weeks Comments:4 WEEKS FOLLOWUP [facility] 04-09-2024 Hospital Discharge instructions Patient Education [...] health care provider or diet and nutrition manager (dietitian). This may include: ?Eating fewer calories. [...] provider. Document Revised: 09/22/2021 Document Reviewed: 09/22/2021 [employer] Patient Education 2022 Hotelements. 11/17/2023 18:01:38 BMI for Adults BMI for [...] numbers. This can be done either in Vincentian (U.S.) or metric measurements. Note that charts and online BMI calculators are available to help you find your BMI quickly and easily without having to do these calculations yourself. To calculate your BMI in Vincentian ([place].S[place] measurements: 1.Measure your weight in pounds [...] Centers for Disease Control and Prevention: www.cdc.gov [employer] Heart Association: www.heart.org National Heart, Lung, and Blood Lottie: www.nhlbi.nih.gov Summary Body mass index (BMI) is a number that is calculated from a person's weight and height. BMI may help estimate how much of a person's weight is composed of fat. BMI can help identify thosewho may be at higher risk for certain medical problems. BMI can be measured using Vincentian measurements or metric measurements. BMI charts are used to identify whether you are underweight, normal weight, overweight, or obese. This information is not intended to replace advice given to you by your health care provider. Make sure you discuss any questions you have with your health care provider. Document Revised: 04/18/2020 Document Reviewed: 02/24/2020 [employer] Patient Education 2022 Hotelements. Follow Up Care 10/16/2023 15:24:36 With:Ford Bauman DO, FAM Address: [address] [address]- When:4 weeks Comments:4 WEEKS FOLLOWUP [facility] [place] 03-08-2024 Hospital Discharge instructions Patient Education 10/16/2023 [...] require a prescription. You can also purchase lqdq-ild-dmvimdh medicines. Medicines may have nicotine in them [...] and encouragement. Call telephone quitlines, such as 0-307-VWDT-NOW, reach out to support groups, or work [...] provider. Document Revised: 07/18/2022 Document Reviewed: 07/18/2022 [employer] Patient Education 2022 Hotelements. Follow Up Care 10/12/2023 09:21:34 With:Ford Bauman DO, FAM Address: [address] [id number]- When:4 weeks Comments:4 WEEKS FOLLOWUP [facility] 02-27-2024 Hospital Discharge instructions Patient Education 10/06/2023 [...] health care provider or diet and nutrition manager (dietitian). This may include: ?Eating fewer calories. [...] provider. Document Revised: 09/22/2021 Document Reviewed: 09/22/2021 [employer] Patient Education 2022 Hotelements. 10/06/2023 09:16:31 Steps to Quit Smoking Steps [...] require a prescription. You can also purchase urdg-ydk-lollozr medicines. Medicines may have nicotine in them [...] and encouragement. Call telephone quitlines, such as 8-399-UDQX-NOW, reach out to support groups, or work [...] provider. Document Revised: 07/18/2022 Document Reviewed: 07/18/2022 [employer] Patient Education 2022 Hotelements. Follow Up Care 10/02/2023 09:24:13 With:Ford Bauman DO RUKHSANA Address: [address] [place] [address]- When: Unknown Comments:If needed [facility] [place] 11-12-2023 NoteChief Complaint consultation for perirectal abscess HPI Staff 47 year old male presents on consultation from [place] [facility] for perirectal abscess. Presented to ED 06/02 with stated complaint. Reported pain. No drainage. I/D completed with moderate purulent material. Prescribed Cipro 500mg BID x 10 days and Flagyl 500mg BID x 10 days. Wound culture with moderategrowth e.coli. Presented to [facility] 12/2022 for the same. Prescribed Augmentin. He had one other episode in 2018. Currently he is experiencing pain after prolonged sitting. Drainage has resolved. He completed course of ATB's. History of Present Illness 47 yo male referred from [facility] ED for right perirectal abscess; patient had I & D of right 2 cm perirectal abscess 2 1/2 weeks ago in ED; treated with Cipro/Flagyl; cx with pansensitive E coli, no pain or drainage currently; patient with h/o right perirectal abscess drained 12/2022 at [facility], in past; also episode in 2018 [...] 01/22/2021 Recorded SARS-CoV-2 (COVID-19) mRNA-1273 vaccine 12/17/2020 RecordedOhio[facility] Berger HospitalComment on above:Result Comment: Electronically Signed By: JOSIAH SPICER, Fadi Giles\Date and Time Signed: 06/21/23 12:38 [id number] Evaluation + Plan noteExtracted from:Title:ED NoteAuthor:Paris Brannon DO ADate:06/05/23 Eye foreign body (T15.90XA: Foreign body on [...] for 7 day(s), 10 mL, Refill(s) 0, [facility] #[facility], 182, cm, 06/05/23 1:53:00 EDT, Height/Length Dosing, 122.4, kg, 06/05/23 1:53:00 EDT, Weight Dosing tetracaine ophthalmic, 2 drop(s), Soln-Opth, Eye-Both, Once, Stop date 06/05/23 1:55:00 EDT, STAT, Start date 06/05/23 1:55:00 EDT Future Appointments Appointment Date:06/19/2023 09:00:00 AM Scheduled Provider:Fadi RAHMAN MD Location:[facility] Appointment Type:[address]10-27-2023 Hospital Discharge instructions Patient Education 06/05/2023 02:16:00 Eye Foreign Body, Gzlx-sy-Vdpx Eye Foreign Body A foreign body is [...] away. You may need to see an eyewear manufacturing tech (delinquency prevention social worker) for further treatment. Follow these instructions at home: Medicines Take vtvl-fkb-drwpypi and prescription medicines only as told by [...] provider. Document Revised: 11/30/2020 Document Reviewed: 11/30/2020 [employer] Patient Education 2022 Hotelements. Follow Up Care 06/05/2023 01:47:09 With:Corinne Stephenson Address: [address] [address] Business (1) When:06/08/2023 Comments:Use antibiotic drops 4 times a day for the next 7 days. Please follow- up with the eye doctor for further evaluation and management. Please return to the ED for any new or worsening symptoms. With:Kymeta Address:Unknown When:Within 3 Day(s) [facility]07-08-2022 Hospital Discharge instructions Patient Education 02/14/2022 14:20:44 [...] frozen fruits, and frozen vegetables. Avoid buying sznjk-sa-urt foods, such as pre-cut fruits and vegetables and pre-made salads. If possible, shop around to discover where you can find the best prices. Consider other retailers such as [employer] stores, larger wholesale stores, local fruit and vegetable [place], and Gecko markets. Do not shop when you are [...] 03/30/2015 Document Revised: 07/28/2018 Document Reviewed: 07/28/2018 [employer] Patient Education 2020 Hotelements. 02/14/2022 14:20:43 BMI for Adults BMI for [...] height. This can be done either in Vincentian (U.S.) or metric measurements. Note that charts are available to help you find your BMI quickly and easily without having to do these calculations yourself. To calculate your BMI in Vincentian (U.S.) measurements, your health care provider will: [...] medical problems. BMI can be measured using Vincentian measurements or metric measurements. To interpret your [...] 04/07/2005 Document Revised: 07/09/2018 Document Reviewed: 06/09/2018 [employer] Patient Education 2020 Hotelements. 02/14/2022 14:20:32 Second-Degree Burn, Adult Second-Degree Burn, [...] and water are not available, use hand abrasive mixer. ?Change your dressing as directed. ?If you [...] to the sun. Medicine Take and apply zcnk-kfz-uhmfkjj and prescription medicines only as told by [...] 12/29/2011 Document Revised: 07/09/2018 Document Reviewed: 07/07/2017 [employer] Patient Education 2020 Hotelements. 02/14/2022 14:20:29 Burn Care, Adult Burn Care, [...] ?Pus or a bad smell. Medicine Take bjur-kgp-kvoulmu and prescription medicines only as told by [...] ?Pus or a bad smell. Medicine Take rppb-vjl-bybatyh and prescription medicines only as told by [...] ?Pus or a bad smell. Medicine Take bwfv-sil-sipnjmq and prescription medicines only as told by [...] 07/27/2006 Document Revised: 07/09/2018 Document Reviewed: 01/13/2017 [employer] Patient Education 2019 Hotelements. Follow Up Care 02/12/2022 11:26:13 With:KATE GARCIA CNP Address: [facility] [address] [place] [address] When:1 to 2 weeks [facility] [place] 05-18-2022 Evaluation + Plan noteExtracted from:Title: ED NoteAuthor:Nirav BILLY, Andrew Zazueta.Date:12/25/21 Facial cellulitis (L03.211: Cellulitis of face) Orders: cephalexin, 500 mg = 1 cap(s), Oral, QID, X 7 day(s), # 28 cap(s), Refills(s) 0, Pharmacy: [facility], 183, cm, 12/25/21 8:14:00 EDT, Height/Length Dosing, 125, kg, 12/25/21 8:14:00 EDT, Weight Dosing [facility]05-18-2022 Hospital Discharge instructions Patient Education 12/25/2021 08:36:27 Cellulitis, Adult, Plba-ya-Xmrk Cellulitis, Adult Cellulitis is a skin infection. [...] Follow these instructions at home: Medicines Take mxbw-ozx-jbmzsyf and prescription medicines only as told by [...] 01/12/2009 Document Revised: 12/16/2018 Document Reviewed: 12/16/2018 [employer] Patient Education everyArt. Follow Up Care 12/25/2021 08:09:26 With:Nino Turner Address: [address] [place], [place] [address] Business (1) When:12/28/2021 08:29:01 Comments:Follow-up with your primary care provider in 3 to 5 days. The cellulitis should not increase in size, and if it does please report back to emergency department for further evaluation. If symptoms worsen, new symptoms arise, or symptoms not improve please report back to emergency department immediately. Take antibiotic as prescribed. [facility] Future Appointments Appointment Date:02/24/2022 01:00:00 PM Scheduled Provider:KATE GARCIA CNP Location:[facility] Appointment Type:[facility] Evaluation + Plan note Future Appointments Appointment Date:11/17/2023 05:40:00 PM Scheduled Provider:Ford Bauman DO Location:[facility] Appointment Type:[facility] Evaluation + Plan note Future Appointments Appointment Date:01/12/2024 07:40:00 AM Scheduled Provider:Ford Bauman DO Location:[facility] Appointment Type:[facility] Evaluation + Plan note Future Appointments Appointment Date:01/28/2024 07:40:00 AM Scheduled Provider:Ford Bauman DO Location:[facility] Appointment Type:[facility] Evaluation + Plan note Future Appointments Appointment Date:04/25/2024 07:40:00 AM Scheduled Provider:Ford Bauman DO Location:[facility] Appointment Type:[facility] Evaluation + Plan note Future Appointments Appointment Date:06/24/2024 01:20:00 PM Scheduled Provider:Ford Bauman DO Location:[facility] Appointment Type:[facility] Evaluation note* Diagnosis Pain of left thumb- Primary Crush injury to thumb, left, initial encounter Closed nondisplaced fracture of distal phalanx of left thumb, initial encounter [facility] Diagnosis Closed nondisplaced fracture of distal phalanx of left thumb, initial encounter- Primary Crushing injury of thumb, left, subsequent encounter [facility]* Diagnosis Closed nondisplaced fracture of distal phalanx of left thumb, initial encounter- Primary [facility] Narrative No data available for this section [facility] No data available for this section [facility] Progress note No data available for this section [facility] Summary Purpose Family History No Family [...] History Records FoundNo Family History Records Found Advance Directives No [...] Care Team (unrecognized sect ion and content) Team MemberRelationshipSpecialtyStart DateEnd Date LinkFord MD [address] [address] [place] [address] PCP - GeneralFamily Ixrhjfre60/28/24Team MemberRelationshipSpecialtyStart Date End Date LinkFord MD [address] [address] [place] [address] PCP - GeneralFamily Tbaspasg97/28/24Team MemberRelationshipSpecialtyStart Date End Date LinkFord MD [address] [address] [place] [address] PCP - GeneralFamily Msanohta84/28/24 (unrecognized sect ion and content) No Status [...] section and content) DATE CREATED AUTHOR 09/12/2022 [facility] DATE CREATED AUTHOR AUTHOR'S ORGANIZ ATION 01/07/2024 [facility] DATE CREATED AUTHOR AUTHOR'S ORGANIZ ATION 01/08/2024 [facility] DATE CREATED AUTHOR AUTHOR'S ORGANIZ ATION 01/10/2024 [facility] DATE CREATED AUTHOR AUTHOR'S ORGANIZ ATION 01/11/2024 [facility] DATE CREATED AUTHOR AUTHOR'S ORGANIZ ATION 01/27/2024 [facility] DATE CREATED AUTHOR AUTHOR'S ORGANIZ ATION 06/27/2024 [facility] DATE CREATED AUTHOR AUTHOR'S ORGANIZ ATION 08/24/2024 [facility] DATE CREATED AUTHOR AUTHOR'S ORGANIZ ATION 05/27/2025 [facility] Reason for Visit (unrecogniz ed section and content) ReasonCommentsFractureReasonCommentsPain FOR RECORDS PERTAINING TO PATIENTS WHO ARE [...] BE BASED ON THE PRIMARY CLINICAL RECORDS. [facility]. provides no warranty or guarantee of the accuracy or completeness of information in this document.
--- OUTSIDE RECORDS SUMMARY | 2025-06-14 22:30 | XMS_ITS | Patient Health Record ---
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 Role Phone Matt Byers Primary Care Provider [phone] Reason For Referral No Information Problems Problem Type SNOMED Code ICD Code Onset Dates Problem Status W/U Status Risk Notes Problem Adjustment disorder with anxious mood (61931048) Adjustment disorder with anxious mood (F43.22) Activeconfirmed Encounters Encounter Location Date Provider Diagnosis [address] [place] [address] 06/28/2024 Matt Byers Adjustment disord er with anxious mood F43.22 Assessments Encounter Date Diagnosis (ICD Code) Assessment Notes Treatment Notes Treatment Clinical Notes Section Notes 06/28/2024 Adjustment disorder with anxious mood (ICD-10 - F43.22) Plan Of Treatment No Information Insurance Providers Payer Name Payer Address Payer Phone Subscriber Number Group Number Insured Name Patient Relationship to Insured Coverage Start Date Coverage End Date [employer] [address] [place] [address] [id number] MAO ESCOBEDO Self - patient is the insured 3
--- NOTE | 2025-06-14 22:45 | ED_ITS ---
HPI - Skin/Abscess/Foreign Bdy General Chief complaint: Skin/Abscess/Foreign Body Stated complaint: ABCESS BETWEEN THE BUTT CHEEKS Time Seen by Provider: 06/14/25 22:12 Source: patient Mode of arrival: walk-in Limitations: no limitations History of Present Illness HPI narrative: This 49-year-old male presents for evaluation of an abscess on his right medial buttock. He has had an abscess that was drained in the same area in 2022. 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 Most recently he has been working overtime and spending more time sitting down and thinks that due to pressure and sweat he developed this abscess. He has not had any fever. He has trouble sitting on his buttocks at this time. He has no abdominal pain. Related Data Home Medications ?Medication ?Instructions ?Recorded ?Confirmed phentermine 37.5 mg tablet 37.5 mg PO DAILY 05/20/24 1 varenicline tartrate 1 mg tablet mg DAILY 05/20/24 varenicline tartrate 1 mg tablet 1 mg PO BID 05/31/24 05/31/24 (Chantix) Allergies Allergy/AdvReac Type Severity Reaction Status Date / Time No Known Drug Allergies Allergy Verified 06/14/25 22:28 Review of Systems ROS Status of ROS 10 or more systems reviewed and unremark able except as noted in history and below PFSH [facility] Social History Smoking status: Current every day smoker Little interest or pleasure in doing things: not at all Feeling down, depressed, or hopeless: not at all Exam Narrative Exam Narrative: Vital signs and Nursing Notes reviewed: Patient is afebrile with normal pulse, blood pressure is elevated at 148/83, he is not hypoxic with pulse ox of 98% on room air General: Awake, alert, oriented, lying on his left side due to right buttock discomfort HEENT: Normocephalic atraumatic, mucous membranes are moist and pink, eyes are clear, normal conjunctiva, vision is grossly intact Chest: Lungs are clear to auscultation with good air entry, there is no wheezing rhonchi or rales appreciated no accessory muscle use, patient is speaking in complete sentences-no chest wall tenderness to palpation CVS: Regular rate and rhythm S1-S2, no murmurs rubs or gallops, pulses are brisk and equal bilaterally ABD: Soft, nondistended, nontender, no rebound guarding or rigidity, bowel sounds are normal, no pulsatile masses appreciated-there is an approximately 2 cm x 1 cm soft, fluctuant abscess at the medial aspect of the right buttock. This is approximately 3 cm away from the anal verge and does not approximate or involve the anus. Extremities: Moving all extremities, no lower extremity tenderness or swelling noted, negative Homans' sign, pulses are brisk and equal bilaterally Skin: Normal in appearance without rash,pallor, petechiae or purpura Neuro: No focal deficits Constitutional Vital Signs, click to edit/add: Last Vital Signs Temp 98.0 F 06/14/25 22:23 Pulse 84 06/14/25 22:23 Resp 18 06/14/25 22:23 BP 148/83 H 06/14/25 22:23 Pulse Ox 98 06/14/25 22:23 O2 Del Method Room Air 06/14/25 22:23 Course Vital Signs Vital signs: Vital Signs Temperature 98.0 F 06/14/25 22:23 Pulse Rate 84 06/14/25 22:23 Respiratory Rate 18 06/14/25 22:23 Blood Pressure 148/83 H 06/14/25 22:23 Pulse Oximetry 98 06/14/25 22:23 Oxygen Delivery Method Room Air 06/14/25 22:23 Temperature 98.0 F 06/14/25 22:23 Pulse Rate 84 06/14/25 22:23 Respiratory Rate 18 06/14/25 22:23 Blood Pressure 148/83 H 06/14/25 22:23 Pulse Oximetry 98 06/14/25 22:23 Oxygen Delivery Method Room Air 06/14/25 22:23 MDM - Skin/Abscess/Foreign Bdy MDM Narrative Medical decision making narrative: This 49-year-old male presents for evaluation of a painful abscess in his right buttock. Is been present for the past several days. He has had a similar abscess in the past. He is not having any fever but has pain with sitting. The re is no sign of any necrotizing fasciitis. He has an approximately 2 x 1 cm ovoid abscess on the right medial buttock area that does not abut the anus or rectum. The area was soft and fluctuant and incised and drained and packed with quarter inch packing. He was medicated with Augmentin, Percocet and Zofran. He was discharged home with prescription for Augmentin, Percocet and Zofran as well as ibuprofen. He was encouraged to use warm soaks, heat packs and follow-up closely with outpatient family medicine or return to emergency department for worsening symptoms or any concerns. Discharge Plan Discharge Chief Complaint: Skin/Abscess/Foreign Body Clinical Impression: Abscess of buttock, right Patient Disposition: Home, Self-Care Time of Disposition Decision: 23:22 Condition: Good Prescriptions / Home Meds: No Action phentermine 37.5 mg tablet 37.5 mg PO DAILY varenicline tartrate 1 mg tablet DAILY varenicline tartrate [Chantix] 1 mg tablet 1 mg PO BID Print Language: [place] Instructions: Abscess Follow-up (ED), Abscess Incision and Drainage (DC) Referrals: Ford Bauman DO [Primary Care Provider] - 1 week Discharge Date/Time: 06/14/25 23:48 Procedures ED Procedure Instructions Procedures Procedures: Procedure note: Incision and drainage of right buttock abscess. The procedure was explained to the patient who verbalized consent. The skin was cleaned with Betadine. The skin was infiltrated with 1% lidocaine. After anesthesia was obtained a 1.5 cm incision was placed into the center of the abscess with a #11 blade. Moderate amount of copious mucopurulent discharge was expressed, this was cultured. The abscess cavity was then irrigated with normal saline and quarter inch packing was placed into the abscess cavity. Patient tolerated procedure well.
[2025-06-14] MEDS: ONDANSETRON 4 MG RAPDIS TABLET SL ×2 (23:33→23:34)
[2025-06-14] MEDS: OXYCODONE HCL/ACETAMINOPHEN 5MG/325MG 1 TAB PO ×2 (23:34)
[2025-06-14] MEDS: AMOXICILLIN/POT CLAV 875-125 MG TABLET 1 TAB PO (23:34)
[2025-06-14] MEDS: LIDOCAINE HCL 1% 100 MG/10 ML MDV INJ (23:35)
== END 2025-06-14 23:48 | disposition home or self-care (01) ==
PROVIDERS: Emergency Provider Emergency Medicine; PCP Family Medicine
DX: L02.31 Cutaneous abscess of buttock (principal); F17.200 Nicotine dependence, unspecified, uncomplicated
CPT/HCPCS: 10060; 87070; 87075; 87186; 99284; Q0162